=== PATIENT | male | born 1950 | race Hispanic/Latino ===

== ENCOUNTER 2017-10-14 05:57 | Day surgery (SDC) | payer MEDICARE ==
[2017-10-14 06:47] LABS: CALCIUM 9.3 mg/dL (8.4-10.5)
[2017-10-14 07:17] VITALS: BMI 39.9
[2017-10-14] MEDS ORDERED: Bupivacaine 0.5% Inj(30mL) ONE (07:52)
[2017-10-14] MEDS ORDERED: Propofol 10 mg/ml Inj (20 ML) ONE (07:58)
[2017-10-14] MEDS ORDERED: Lidocaine 2% Inj (20ml) ONE (07:59)
[2017-10-14] MEDS ORDERED: Rocuronium 10 mg/ml (5 ml) ONE (08:05)
[2017-10-14] MEDS ORDERED: Succinylcholine 200 mg/10 ml Inj IV ONE (08:05)
[2017-10-14] MEDS ORDERED: ePHEDrine 50 mg/ml Inj ONE (08:27)
[2017-10-14] MEDS ORDERED: Glycopyrrolate 0.2 mg/ml (2ml vial) ONE (09:24)
[2017-10-14] MEDS ORDERED: Neostigmine Methylsulfate 3mg/3ml Syringe IV ONE (09:24)
[2017-10-14] MEDS ORDERED: HYDROmorphone 0.5 mg/0.5 ml ISec IVP PRN (09:46)
--- NOTE | 2017-10-14 09:46 | PCM.SURG1 ---
Surgeon's Initial Post Op Note - Surgeon's Notes Surgeon: Dieudonne Manager Gyn: Sidra PGY3, Orlin PGY2 Type of Anesthesia: General Endo, Local Pre-Operative Diagnosis: ESRD Operative Findings: normal intra-abdominal anatomy Post-Operative Diagnosis: same Operation Performed: laparoscopic peritoneal dialysis catheter placement w. omentopexy Specimen/Specimens Removed: none Estimated Blood Loss: EBL {In ML}: 10 Blood Products Given: N/A Drains Used: No Drains Post-Op Condition: Good Date of Surgery/Procedure: 10/14/17 Time of Surgery/Procedure: 09:46
[2017-10-14] MEDS ORDERED: HYDROmorphone 0.5 mg/0.5 ml ISec ONE (10:30)
--- NOTE | 2017-10-15 04:00 | OP ---
PROCEDURE DATE: 10/14/2017 PREOPERATIVE DIAGNOSIS: End-stage renal disease. POSTOPERATIVE DIAGNOSIS: End-stage renal disease. PROCEDURES PERFORMED: 1. Laparoscopic placement of the peritoneal dialysis catheter. 2. Placement of the peritoneal dialysis catheter extension with subcutaneous tunneling. 3. Laparoscopic omentopexy. SURGEON: Dr. Bro. COPPER PLATER: Dr. Valente. SECOND COPPER PLATER: Dr. Ordaz. ANESTHESIOLOGIST: Dr. Ordaz. TYPE OF ANESTHESIA: General endotracheal anesthesia. ESTIMATED BLOOD LOSS: Minimal. SPECIMEN: None. INDICATIONS: Patient is a 66-year-old male with a history of renal failure, who now requested to have dialysis catheter replaced for use of peritoneal dialysis at home. Patient was scheduled for the placement of the catheter. DESCRIPTION OF PROCEDURE: The patient was brought to the operating room and placed on the operating room table in supine position. The patient was connected to EKG, blood pressure, and pulse oximetry monitors. Patient then underwent general endotracheal anesthesia, was prepped and draped in the usual sterile fashion. First, a standard time-out procedure took place and everybody in the room agreed as to the patient's identity, diagnosis, and procedure to be performed. All the appropriate preop procedures were performed and the operative as well as postoperative plan and course of actions were discussed with the team. First using lidocaine mixed with Marcaine, the left subcostal margin area was infiltrated at the midclavicular line. Next, a small incision made in the skin and a 12-mm trocar was inserted under direct visualization through the camera into the abdominal cavity. Once access to cavity was obtained, a pneumoperitoneum was obtained and that allowed me to explore the entire abdomen. It appeared that there was no adhesions noted. The liver appeared to be within normal limits and the omentum which was quite extensive was pulled up to the upper portion of the abdomen. I then placed a 0 Vicryl stitch and using a closure needle grabbed the right side at the end of the stitch and pulled it through. Once this was secured, I then placed the omentum over the 0 Vicryl and brought out the other end of it through the incision adjacent to the previous incision. Next, the omentum was elevated against the abdominal wall under direct visualization and a 0 Vicryl was closed. Once this was completed, I then proceeded with placing an 8-mm port through the left periumbilical route and brought it into the abdominal cavity by piercing the peritoneum about half way between the umbilicus and symphysis pubis. Once the trocar was in place, the catheter was inserted through the trocar into the abdominal cavity and the pigtail end of the catheter was positioned under the right lower quadrant into the pelvis. Once this was completed, I then proceeding with tunneling of a catheter extension towards the chest and then sideways to the lateral aspect of the abdominal cavity above the umbilicus due to the patient's body habitus. Once the instrument was in place, the intraperitoneal catheter as well as the extension catheter were connected with a metal connector and ligated with 0 silk. Once this was done, I then proceeded with the catheter and carefully watched with a scope the filling of the abdominal cavity. There was excellent flow without any . There was also good drainage back from the abdominal cavity. Once this was done, I left about 400 mL of saline in the abdominal cavity. Now, the wounds were closed using 3-0 Vicryl for the deep dermal layers and 4-0 Monocryl for skin. A sterile Dermabond dressing was applied to all the wounds. The patient tolerated the procedure well and there was no complication. The patient was awakened, extubated and transferred to the recovery room for further observation. Keven Bro MD
[2017-10-15 07:08] LABS: BASO # 0.01 K/mm3 (0.0-2.0); BASO % 0.1 % (0.0-3.0); EOS # 0.1 (0.0-0.7); EOS % 0.7 % (1.5-5.0); GRAN # 10.54 (1.4-6.5); GRAN % 79.2 % (50.0-68.0); HEMOGLOBIN 9.9 g/dL (14.0-18.0); LYMPH # 1.9 (1.2-3.4); LYMPH % 14.4 % (22.0-35.0); MEAN CELL VOLUME 90.1 fl (80.0-105.0); MEAN CORPUSCULAR HEMOGLOBIN 30.7 pg (25.0-35.0); MEAN PLATELET VOLUME 11.3 fl (7.0-11.0); MONO # 0.7 (0.1-0.6); MONO % 5.6 % (1.0-6.0); RBC 3.23 10^6/uL (3.5-6.1); RED CELL DISTRIBUTION WIDTH 13.3 % (11.5-14.5); WHITE BLOOD COUNT 13.3 10^3/ul (4.5-11.0)
[2017-10-15 07:26] LABS: CALCIUM 9.6 mg/dL (8.4-10.5)
--- NOTE | 2017-10-15 08:03 | CP.PCM.PN ---
Subjective - Date & Time of Evaluation Date of Evaluation: 10/15/17 Time of Evaluation: 08:02 - Subjective Subjective: Surgery Objective - Vital Signs/Intake and Output Vital Signs (last 24 hours): Temp Pulse Resp BP Pulse Ox 97.9 F 69 19 167/84 H 95 10/14/17 18:23 10/15/17 00:00 10/14/17 23:27 10/15/17 00:00 10/14/17 18:23 Intake and Output: 10/15/17 10/15/17 06:59 18:59 Intake Total 1080 Output Total 1750 Balance -670 - Medications Medications: Current Medications Allopurinol (Zyloprim) 150 mg PO DAILY [facility] Amlodipine Besylate (Norvasc) 5 mg PO BID [facility] Last Admin: 10/14/17 20:07 Dose: 5 mg Aspirin (Ecotrin) 81 mg PO DAILY [facility] Atorvastatin Calcium (Lipitor) 20 mg PO DAILY [facility] Clonidine HCl (Catapres) 0.3 mg PO TID [facility] Last Admin: 10/14/17 21:07 Dose: 0.3 mg Ergocalciferol (Drisdol 50,000 Intl Units Cap) 1 cap PO TuFr@1000 [facility] Furosemide (Lasix) 40 mg PO DAILY [facility] Hydralazine HCl (Apresoline) 25 mg PO QID [facility] Last Admin: 10/15/17 01:15 Dose: Not Given Metoclopramide HCl (Reglan) 10 mg IV ONCE PRN PRN Reason: Nausea/Vomiting Metoprolol Tartrate (Lopressor) 50 mg PO BID [facility] Last Admin: 10/14/17 20:08 Dose: 50 mg Non-Formulary Medication (Multivit-Minerals/Fa/Lycopene [One Daily For Men Tablet]) 1 tab PO DAILY [facility] Pantoprazole Sodium (Protonix Ec Tab) 40 mg PO DAILY [facility] Sennosides (Senokot Tab) 17.2 mg PO HS [facility] Last Admin: 10/14/17 21:08 Dose: 17.2 mg Tamsulosin HCl (Flomax) 0.4 mg PO DAILY [facility] Last Admin: 10/15/17 01:16 Dose: Not Given Tamsulosin HCl (Flomax) 0.4 mg PO DAILY [facility] Tramadol HCl (Ultram) 50 mg PO TID [facility] Last Admin: 10/14/17 20:07 Dose: 50 mg Tramadol HCl (Ultram) 50 mg PO PRN PRN PRN Reason: Pain, moderate (4-7) - Labs Labs: 10/15/17 06:30 10/15/17 06:30
[2017-10-15] MEDS ORDERED: LYCOPENE PO SCH ×3 (10:00)
[2017-10-15] MEDS ORDERED: [UNRECOGNIZED DRUG - OTHER] PO SCH ×3 (10:00)
[2017-10-15] MEDS ORDERED: Ergocalciferol 50,000 Intl Units Cap PO SCH ×2 (10:00)
[2017-10-15] MEDS ORDERED: Pantoprazole 40 mg EC Tab PO SCH ×2 (10:00)
[2017-10-15] MEDS ORDERED: MULTIVIT MINERALS PO SCH ×3 (10:00)
[2017-10-15 11:33] VITALS: PULSE 73; RESP 20; TEMP 98; O2SAT 98
--- NOTE | 2017-10-15 12:10 | CP.PCM.DIS ---
Provider - Provider Attending physician: Keven Villeda MD Primary care physician: Raz Le MD Consults: Urology: Dr. Chen Time Spent in preparation of Discharge (in minutes): 45 Hospital Course - Lab Results Lab Results: Most Recent Lab Values WBC 13.3 10^3/ul (4.5-11.0) H D 10/15/17 06:30 RBC 3.23 10^6/uL (3.5-6.1) L 10/15/17 06:30 Hgb 9.9 g/dL (14.0-18.0) L 10/15/17 06:30 Hct 29.1 % (42.0-52.0) L 10/15/17 06:30 MCV 90.1 fl (80.0-105.0) 10/15/17 06:30 MCH 30.7 pg (25.0-35.0) 10/15/17 06:30 MCHC 34.0 g/dl (31.0-37.0) 10/15/17 06:30 RDW 13.3 % (11.5-14.5) 10/15/17 06:30 Plt Count 233 10^3/uL (120.0-450.0) 10/15/17 06:30 MPV 11.3 fl (7.0-11.0) H 10/15/17 06:30 Gran % 79.2 % (50.0-68.0) H 10/15/17 06:30 Lymph % (Auto) 14.4 % (22.0-35.0) L 10/15/17 06:30 [place] % (Auto) 5.6 % (1.0-6.0) 10/15/17 06:30 Eos % (Auto) 0.7 % (1.5-5.0) L 10/15/17 06:30 Baso % (Auto) 0.1 % (0.0-3.0) 10/15/17 06:30 Gran # 10.54 (1.4-6.5) H 10/15/17 06:30 Lymph # (Auto) 1.9 (1.2-3.4) 10/15/17 06:30 [place] # (Auto) 0.7 (0.1-0.6) H 10/15/17 06:30 Eos # (Auto) 0.1 (0.0-0.7) 10/15/17 06:30 Baso # (Auto) 0.01 K/mm3 (0.0-2.0) 10/15/17 06:30 Sodium 143 mmol/L (132-148) 10/15/17 06:30 Potassium 3.3 mmol/L (3.6-5.0) L 10/15/17 06:30 Chloride 104 mmol/L (98-107) 10/15/17 06:30 Carbon Dioxide 21 mmol/L (21-33) 10/15/17 06:30 Anion Gap 22 (10-20) H 10/15/17 06:30 BUN 97 mg/dL (7-21) H 10/15/17 06:30 Creatinine 9.8 mg/dl (0.8-1.5) H* 10/15/17 06:30 Est GFR ( Amer) 6 10/15/17 06:30 Est GFR (Non-Af Amer) 5 10/15/17 06:30 Random Glucose 140 mg/dL (70-110) H 10/15/17 06:30 Calcium 9.6 mg/dL (8.4-10.5) 10/15/17 06:30 - Hospital Course Hospital Course: 66 M w h/o ESRD came to [facility] for peritoneal dialysis catheter insertion. Pt tolerated the surgery well but had urinary retention. Pt was admitted for extended SDS. Overnight coffman catheter was placed and FLomax was given. Pt had 1750 urine output overnight. Urology was consulted. Recommended sending home with the coffman and flomax. Instructed to f/u with Dr. villeda and Dr. Chen at the office in 1 week. Discharge Plan - Follow Up Plan Condition: GOOD Disposition: HOME/ ROUTINE Additional Instructions: f/u with Dr. Chen to get Coffman urinary catheter removed in 3 days follow up with Dr. Villeda in 1 week no heavy lifting for 1 month ok to use peritoneal dialysis catheter. Follow up with waterproofing machine operator for instruction Referrals: Raz Le MD [Primary Care Provider] - Augustus Chen MD [Staff Provider] - Keven Villeda MD [Staff Provider] -
[2017-10-15] MEDS ORDERED: Potassium Chloride 20 mEq ER Tab PO ONE (14:23)
[2017-10-15 15:29] VITALS: BP 176/86
== END 2017-10-15 15:47 | disposition home or self-care (01) ==
LOC: SDS 05:57 → 5RNO 18:58 → SDS 18:59
PROVIDERS: ATTEND General Practice
DX: I12.0 Hypertensive chronic kidney disease with stage 5 chronic kidney disease or end stage renal disease (principal); N18.6 End stage renal disease; R33.9 Retention of urine, unspecified; I25.10 Atherosclerotic heart disease of native coronary artery without angina pectoris; Z95.1 Presence of aortocoronary bypass graft
CPT/HCPCS: 36415 ×2; 49324; 49326; 49435; 80048 ×2; 85025; J0330; J0690; J1170; J1644; J2405; J2704; J2710; J2765; J3010; J7030

== ENCOUNTER 2018-07-24 09:06 | Outpatient (CLI) | payer MEDICARE | END 2018-07-24 09:07 | disposition home or self-care (01) | LOC: LAB 09:06 ==

== ENCOUNTER 2018-08-11 15:35 | Inpatient (IN) | payer MEDICARE ==
--- NOTE | 2018-08-11 15:43 | EDPD ---
HPI Stroke - General Time Seen by Provider: 08/11/18 15:38 Chief Complaint: Altered Mental Status Historian: EMS - History of Present Illness Narrative History of Present Illness (Free Text): 08/11/18 15:43 67 year old male, with past medical history of anemia, hypertension, CABG, and ESRD on hemodialysis, presents to the ED via EMS for evaluation of AMS since prior to arrival. As per EMS, patient became altered with poor response following dialysis when dialysis center called EMS. Upon arrival to the ED, patient responds to painful stimuli but does not verbalize any history or complaints. HPI and ROS limited secondary to patient's clinical presentation. Onset:: Just prior to presenting Timing: Currently Symptomatic Context: Other (Dialysis center) Exacerbated by: Nothing Relieved by: Nothing - Location Location: Mental Status - Pain Assessment/Levels Maximum Severity: None Severity Current: None rTPA Inclusion/Exclusion - Refusal of Treatment Patient Refused Treatment: No - Inclusion Criteria for Altepase Patient is 18 years or Older: Yes The Clinical Diagnosis of Ischemic Stroke That is Causing a Potentially Disabling Neurological Deficit: No Time of Onset is Well Established to be Less Than 270 Minute Before Treatment Would Begin: No Risk/Benefit Discussed With Patient/Family Member Present: No Past Medical History - Provider Review Nursing Documentation Reviewed: Yes - Tetanus Immunization Tetanus Immunization: Unknown - Cardiac Hx Hypertension: Yes Other/Comment: Quad Bypass - Pulmonary Hx Respiratory Disorders: Yes Hx Sleep Apnea: Yes - Neurological Hx Neurological Disorder: Yes Hx Transient Ischemic Attacks (TIA): Yes (1985) - HEENT Hx HEENT Disorder: No - Renal Hx Renal Disorder: Yes Other/Comment: patient is born with only 1 kidney- right - Endocrine/Metabolic Hx Endocrine Disorders: No - Hematological/Oncological Hx Blood Disorders: No - Integumentary Hx Dermatological Disorder: No - Musculoskeletal/Rheumatological Hx Musculoskeletal Disorders: Yes Hx Arthritis: Yes Hx Falls: No - Gastrointestinal Hx Gastrointestinal Disorders: No - Genitourinary/Gynecological Hx Genitourinary Disorders: No - Psychiatric Hx Emotional Abuse: No Hx Physical Abuse: No Hx Substance Use: No - Surgical History Hx Coronary Stent: Yes Other/Comment: Cystoscopy, TURP - Anesthesia Hx Anesthesia Reactions: No Hx Malignant Hyperthermia: No - Suicidal Assessment Feels Threatened In Home Enviroment: No Family/Social History - Family/Social History Family History: Non-Contributory Allergies/Home Meds Allergies/Adverse Reactions: Allergies Iodinated Contrast- Oral and IV Dye [Iodinated Contrast Media - IV Dye] Allergy (Severe, Verified 10/04/17 10:48) SHORTNESS OF BREATH seafood Allergy (Severe, Uncoded 10/04/17 10:48) ANAPHYLAXIS Home Medications: Home Meds Medication Instructions Recorded Confirmed RX: Atorvastatin [Lipitor] 20 mg PO DAILY 11/26/14 08/11/18 RX: Tamsulosin [Flomax] 0.4 mg PO DAILY 11/26/14 08/11/18 RX: Cholecalciferol (Vitamin D3) 50,000 unit PO Q2XW 06/07/17 08/11/18 [Vitamin D3] RX: Calcium Acetate [Phoslo] 2 tab PO TID 08/11/18 08/11/18 RX: Cinacalcet [Sensipar] 30 mg PO DAILY 08/11/18 08/11/18 RX: Gabapentin [Neurontin] 300 mg PO HS 08/11/18 08/11/18 RX: SITagliptin [Januvia] 25 mg PO PRN 08/11/18 08/11/18 RX: Allopurinol [Zyloprim] 100 mg PO DAILY 08/14/18 08/14/18 Review of Systems - Review of Systems Systems not reviewed;Unavailable: Altered Mental Status ED Stroke Physical Exam Temperature: Febrile Blood Pressure: Normal Pulse: Tachycardic Respiratory Rate: Normal Appearance: Positive for: Ill-Appearing Pain Distress: None Mental Status: Positive for: other (delirious) Finger Stick Blood Glucose: 85 - Systems Exam Head: Present: Atraumatic, Normocephalic Pupils: Present: PERRL Extroacular Muscles: Present: EOMI Conjunctiva: Present: Normal Ears: Present: Normal, NORMAL TM Mouth: Present: Dry Pharnyx: Present: Normal. No: ERYTHEMA, EXUDATE Nose (External): Present: Atraumatic Neck: Present: Normal Range of Motion. No: Meningeal Signs, MIDLINE TENDERNESS Respiratory/Chest: Present: Clear to Auscultation Cardiovascular: Present: Tachycardic. No: Murmurs Abdomen: Present: Normal Bowel Sounds. No: Tenderness, Distention, Peritoneal Signs Back: Present: Normal Inspection. No: CVA Tenderness, Midline Tenderness Upper Extremity: Present: Normal Inspection, Normal ROM, NORMAL PULSES Lower Extremity: Present: Edema (1+ pitting), NORMAL PULSES, Erythema, Neurov ascularly Intact, Other (b/l LE erythema ) Neurologic: Present: Other (Gcs 12, RUE, LUE 2/5 strength. RLE, LLE 1/5 strength. Withdraws to pain stimule in all extremities. intermittent chills / shakes noted. Pt tracks objects across room and is responsive when asked. Is AOx1. ). No: Facial Droop Skin: Present: Rashes (b/l le erythema) Psychiatric: Present: Alert. No: Oriented x 3 (AOx1) Medical Decision Making ED Course and Treatment: 08/11/18 15:49 Impression: 67 year old male presents to the ED for evaluation of AMS since prior to arrival. Appreciate family story at bedside: pt was last seen normally 24+ hours prior, and this morning started having weakness as well as difficultly walking. No enuresis or encoparesis or loss of sensation to the legs at any time. No fall or trauma. Pt then had HD and was noted to have chills as well as AMS. No unilateral weakness or slurred speech was noted, but patient was less responsive and noted to be AOx1. Given change in mentation, code stroke activated. (it was unknown at the time that patient was last seen normal at 100% prior to 24+ hours prior.) Plan: -- Labs -- Chest X-ray -- EKG -- ABG -- VBG -- CT of Head -- Reassess and disposition Prior Visits: Notes and results from previous visits were reviewed. Progress Notes: 08/11/18 15:43 glucose unremarkable pupils non-pin point CODE STROKE ACTIVATED. 08/11/18 15:49 Family at bedside, who states patient was at baseline prior to dialysis. Patient is usually able to ambulate on his own without any difficulty as per family. 08/11/18 1700 CTH unremarkable elevated temp, mildly elevated lactic and tachy, code sepsis called. ABx started. No signs of septic shock. Gentle hydration ordered given stable pressure as well as hx of recent HD. 08/11/18 1730 Appreciate consult w/ Dr. [place]: Likely metabolic encephalopathy, no tpa at this time. 08/11/18 17:41 appreciate consult w/ Dr. Clark: No ICU at this time, to tele. appreciate consult w/ Dr. Felicity Reyes: to admit to her service. - Scribe Statement The provider has reviewed the documentation as recorded by the Scribe Shahab Dia. All medical record entries made by the Scribe were at my direction and personally dictated by me. I have reviewed the chart and agree that the record accurately reflects my personal performance of the history, physical exam, medical decision making, and the department course for this patient. I have also personally directed, reviewed, and agree with the discharge instructions and disposition. NIHSS Scale ([place]) Time Performed: 15:40 - How Severe is the Stoke Baseline Level of Consciousness: 1=Drowsy LOC to Questions: 1=One correct LOC to commands: 0=Obeys both correctly Best Gaze: 1=Partial gaze palsy Visual: 0=No visual loss Facial: 0=Normal Motor Arm - Left: 2=Falls before 10 sec Motor Arm - Right: 2=Falls before 10 sec Motor Leg - Left: 3=No effort against gravity (falls immediately) Motor Leg - Right: 3=No effort against gravity (falls immediately) Limb Ataxia: 1=Present Upper or Lower Sensory: 0=Normal Best Language: 1=Mild to moderate aphasia Dysarthia: 1=Mild to moderate slurring Extinction & Inattention (Neglect): 0=Normal, no object Score: 16 Risk Level: Mod/Sev Stroke Risk Disposition/Present on Arrival - Present on Arrival Any Indicators Present on Arrival: No History of DVT/PE: No History of Uncontrolled Diabetes: No Urinary Catheter: No History Surgical Site Infection Following: None - Disposition Have Diagnosis and Disposition been Completed?: Yes Diagnosis: Sepsis, Altered mental status Disposition: HOSPITALIZED Disposition Time: 17:42 Condition: GOOD
[2018-08-11 15:44] VITALS: BMI 33.8
[2018-08-11] MEDS ORDERED: Sodium Chloride 0.9% 1,000 ML IV SCH ×2 (15:45→16:35)
[2018-08-11] MEDS ORDERED: Piperacillin/Tazobact 3.375 gm 100 ML IVPB STA (16:01)
[2018-08-11] MEDS ORDERED: Vancomycin 1gm in NS 250ml 1 GM/250 ML BAG IVPB STA (16:01)
[2018-08-11 16:16] LABS: BASO # 0.03 K/mm3 (0.0-2.0); BASO % 0.1 % (0.0-3.0); EOS # 0.2 (0.0-0.7); EOS % 0.8 % (1.5-5.0); HEMOGLOBIN 13.2 g/dL (14.0-18.0); LYMPH # 1.4 (1.2-3.4); LYMPH % 6.5 % (22.0-35.0); MEAN CELL VOLUME 101.8 fl (80.0-105.0); MEAN CORPUSCULAR HGB CONC 33.4 g/dl (31.0-37.0); MEAN PLATELET VOLUME 10.8 fl (7.0-11.0); MONO # 1.3 (0.1-0.6); RBC 3.88 10^6/uL (3.5-6.1); WHITE BLOOD COUNT 21.4 10^3/uL (4.5-11.0)
[2018-08-11 16:20] LABS: VENOUS BLOOD GAS BASE EXCESS 4.5 mmol/L (0.0-2.0); VENOUS BLOOD GAS PO2 28 mm/Hg (30-55); VENOUS BLOOD PH 7.42 (7.32-7.43)
--- NOTE | 2018-08-11 16:22 | RAD ---
Date of service: 08/11/2018 HISTORY: Code Stroke COMPARISON: 10/04/2017 FINDINGS: LUNGS: No active pulmonary disease. PLEURA: No significant pleural effusion identified, no pneumothorax apparent. CARDIOVASCULAR: Atherosclerotic calcifications identified primarily aortic arch. No radiographic findings to suggest acute or significant cardiovascular disease. Incidental Finding(s): Postoperative changes related to sternotomy. Venous access catheter in satisfactory position. OSSEOUS STRUCTURES: No significant abnormalities. VISUALIZED UPPER ABDOMEN: Normal. OTHER FINDINGS: None. IMPRESSION: No active disease. No significant interval change compared to the prior examination(s).
--- NOTE | 2018-08-11 16:22 | CT ---
Date of service: 08/11/2018 PROCEDURE: CT HEAD WITHOUT CONTRAST. HISTORY: Altered mental status. COMPARISON: 07/27/2016 TECHNIQUE: Axial computed tomography images were obtained through the head/brain without intravenous contrast. Supplemental Coronal and Sagittal projections created and reviewed. Radiation dose: Total exam DLP = 1097.12 mGy-cm. This CT exam was performed using one or more of the following dose reduction techniques: Automated exposure control, adjustment of the mA and/or kV according to patient size, and/or use of iterative reconstruction technique. FINDINGS: HEMORRHAGE: No intracranial hemorrhage. BRAIN: No mass effect or edema. Cortical and cerebellar atrophy, periventricular small vessel disease. VENTRICLES: Unremarkable. No hydrocephalus. CALVARIUM: Stable sclerotic, likely benign calvarial findings PARANASAL SINUSES: Unremarkable as visualized. No significant inflammatory changes. MASTOID AIR CELLS: Unremarkable as visualized. No inflammatory changes. OTHER FINDINGS: None. IMPRESSION: No acute intracranial abnormalities. No significant findings to account for the clinical presentation. No significant interval change compared to the prior examination(s). Code stroke protocol: Study completed 15:51. Radiologist notified 16:01. Results conveyed verbally at 16:16. Interpretation finalized and available for review 16:18.
[2018-08-11 16:24] LABS: ARTERIAL BLOOD GAS O2 SAT 94.5 % (95-98); ARTERIAL BLOOD GAS PCO2 38 mm/Hg (35-45); ARTERIAL BLOOD GAS PH 7.46 (7.35-7.45); ARTERIAL BLOOD GAS TCO2 28.2 mmol.L (22-28)
[2018-08-11 16:24] LABS: INR 1.11; PARTIAL THROMBOPLASTIN TIME 34.8 Seconds (26.9-38.3); PROTHROMBIN TIME 12.3 SECONDS (9.4-12.5)
[2018-08-11 16:34] LABS: PH,URINE 7.5 (4.7-8.0); URINE BILIRUBIN NEGATIVE (NEGATIVE); URINE BLOOD MODERATE (NEGATIVE); URINE GLUCOSE (UA) 100 mg/dL (NEGATIVE); URINE LEUKOCYTE ESTERASE MODERATE Leu/uL (NEGATIVE); URINE PROTEIN 100 mg/dL (<30 mg/dL); URINE UROBILINOGEN 0.2 E.U./dL (<1 E.U./dL)
[2018-08-11 16:35] LABS: URINE APPEARANCE SLIGHT-CLOUDY (CLEAR); URINE COLOR YELLOW (YELLOW)
[2018-08-11 16:39] LABS: ALB/GLOB RATIO 1.5 (1.1-1.8); ALBUMIN 5.2 g/dL (3.0-4.8); CALCIUM 10.3 mg/dL (8.4-10.5)
[2018-08-11 16:42] LABS: TROPONIN I 0.03 ng/mL
[2018-08-11 16:50] LABS: URINE AMORPHOUS SEDIMENT SMALL /hpf; URINE EPITHELIAL CELLS MANY /hpf (0-5); URINE RBC 20 - 25 /hpf (0-2)
--- NOTE | 2018-08-11 17:01 | CP.PCM.HP ---
<AlexKvng - Last Filed: 08/11/18 18:53> History of Present Illness - History of Present Illness History of Present Illness: Kvng Johnson, PGY1 Medicine H&P for Dr. Reyes cc: "weakness/wobbling and AMS after HD" Patient is a 67 y/o M with PMHx Anemia, HTN, ESRD on HD (MW), CAD (s/p stent placement 2007), TIA (1985), DM who presented to the ED for weakness and AMS after HD treatment. Dialysis center called EMS. In the ED, Vitals: Temp 103.5, HR 114, BP 114/77, RR 18, SaO2 98% (room air). Medical team evaluated patient. He is AAOx1 (person only). His baseline is normal mental status, AAOx3. Most of the history was obtained from family member at bedside. Since this morning, patient has had increased weakness and wobbling. He is a HD patient who has a dialysis catheter in place but recently had a fistula placed about a week ago. Patient has had a prior episode like this once in the past but it resolved. His baseline mental status is normal; he can function and go about his activities of daily living. Denies fever, chills, cough, headache, nausea, vomiting, diarrhea, numbness/tingling. No sick contacts or recent travel hx. A full 12 point ROS was limited given patient's poor mental status. PMD: Dr. Jaramillo Clinical [facility]etics Laboratory Chief: Dr. Garcia Railroad Inspector: Dr. Galeas Pharmacy: [facility] () PMHx: Anemia, HTN, ESRD on HD (MW), CAD (s/p stent placement 2007), TIA (1985), DM PSHx: CABG (2013), Bone spur surgery Meds: see MAR Allergies: contrast oral and IV dye SocialHx: social drinker. Denies smoking. Smoked cigars with recreational drugs in the 1980s but quit. Lives at home. FamHx: father has some type of GI cancer (unspecified). Mother has DM. Present on Admission - Present on Admission Any Indicators Present on Admission: No Review of Systems - Review of Systems All systems: reviewed and no additional remarkable complaints except (as per HPI) Past Patient History - Infectious Disease Hx of Infectious Diseases: None - Tetanus Immunizations Tetanus Immunization: Unknown - Past Medical History & Family History Past Medical History?: Yes - Past Social History Smoking Status: Former Smoker - CARDIAC Hx Hypertension: Yes Other/Comment: Quad Bypass - PULMONARY Hx Respiratory Disorders: Yes Hx Sleep Apnea: Yes - NEUROLOGICAL Hx Neurological Disorder: Yes Hx Transient Ischemic Attacks (TIA): Yes (1985) - HEENT Hx HEENT Problems: No - RENAL Hx Chronic Kidney Disease: Yes Other/Comment: patient is born with only 1 kidney- right - ENDOCRINE/METABOLIC Hx Endocrine Disorders: No - HEMATOLOGICAL/ONCOLOGICAL Hx Blood Disorders: No - INTEGUMENTARY Hx Dermatological Problems: No - MUSCULOSKELETAL/RHEUMATOLOGICAL Hx Musculoskeletal Disorders: Yes Hx Arthritis: Yes Hx Falls: No - GASTROINTESTINAL Hx Gastrointestinal Disorders: No - GENITOURINARY/GYNECOLOGICAL Hx Genitourinary Disorders: No - PSYCHIATRIC Hx Emotional Abuse: No Hx Physical Abuse: No Hx Substance Use: No - SURGICAL HISTORY Hx Coronary Stent: Yes Other/Comment: Cystoscopy, TURP - ANESTHESIA Hx Anesthesia Reactions: No Hx Malignant Hyperthermia: No Meds Allergies/Adverse Reactions: Allergies Allergy/AdvReac Type Severity Reaction Status Date / Time Iodinated Contrast- Oral and Allergy Severe SHORTNESS Verified 10/04/17 10:48 IV Dye OF BREATH [Iodinated Contrast Media - IV Dye] seafood Allergy Severe ANAPHYLAXIS Uncoded 10/04/17 10:48 Physical Exam - Constitutional Appears: Confused - Head Exam Head Exam: ATRAUMATIC, NORMAL INSPECTION, NORMOCEPHALIC - Eye Exam Eye Exam: EOMI, Normal appearance Pupil Exam: NORMAL ACCOMODATION - ENT Exam ENT Exam: Mucous Membranes Moist - Respiratory Exam Respiratory Exam: Clear to Auscultation Bilateral, NORMAL BREATHING PATTERN. absent: Chest Wall Tenderness, Decreased Breath Sounds, Rales, Rhonchi, Wheezes - Cardiovascular Exam Cardiovascular Exam: Tachycardia, +S1, +S2 Additional comments: CABG scar on chest wall. Dialysis catheter is in place on right chest wall. - GI/Abdominal Exam GI & Abdominal Exam: Normal Bowel Sounds, Soft. absent: Firm, Guarding, Rebound, Rigid, Tenderness - Extremities Exam Extremities exam: Positive for: pedal pulses present. Negative for: calf tenderness, joint swelling, tenderness Additional comments: Bilateral chronic venous stasis skin changes. Warm to touch. Right leg is wrapped in bandage. - Neurological Exam Neurological exam: Altered Additional comments: Awake. AAOx1 (person only). No facial drooping. Generalized weakness in the ex tremities, however, one side is not weaker than the other. - Skin Skin Exam: Dry, Intact, Warm Results - Vital Signs Recent Vital Signs: Last Vital Signs Temp 103.5 F H 08/11/18 16:19 Pulse 114 H 08/11/18 16:02 Resp 18 08/11/18 16:02 BP 114/77 08/11/18 16:02 Pulse Ox 98 08/11/18 16:02 - Labs Result Diagrams: 08/11/18 16:10 08/11/18 16:10 Labs: Laboratory Results - last 24 hr 08/11/18 08/11/18 08/11/18 16:08 16:10 16:10 WBC 21.4 H D RBC 3.88 Hgb 13.2 L Hct 39.5 L MCV 101.8 MCH 34.0 MCHC 33.4 RDW 15.0 H Plt Count 188 MPV 10.8 Neut % (Auto) 86.6 H Lymph % (Auto) 6.5 L Moody % (Auto) 6.0 Eos % (Auto) 0.8 L Baso % (Auto) 0.1 Lymph # (Auto) 1.4 Moody # (Auto) 1.3 H Eos # (Auto) 0.2 Baso # (Auto) 0.03 Absolute Neuts (auto) 18.56 H PT 12.3 INR 1.11 APTT 34.8 pCO2 pO2 28 L HCO3 ABG pH ABG Total CO2 ABG O2 Saturation ABG Base Excess ABG Potassium VBG pH 7.42 VBG pCO2 46.0 VBG HCO3 29.8 H VBG Total CO2 31.2 H VBG O2 Sat (Calc) 62.9 VBG Base Excess 4.5 H VBG Potassium 5.3 H Sodium 133.0 Chloride 92.0 L Glucose 155 H Lactate 2.8 H FiO2 21.0 Crit Value Called To Dr lili alfaro Crit Value Called By Blood Gas Notified Time 1619 Potassium Carbon Dioxide Anion Gap BUN Creatinine Est GFR ( Amer) Est GFR (Non-Af Amer) Random Glucose Calcium Total Bilirubin AST ALT Alkaline Phosphatase Total Creatine Kinase Troponin I Total Protein Albumin Globulin Albumin/Globulin Ratio Triglycerides Cholesterol LDL Cholesterol Direct HDL Cholesterol Arterial Blood Potassium Venous Blood Potassium 5.3 H Urine Color Urine Appearance Urine pH Ur Specific Clayton Urine Protein Urine Glucose (UA) Urine Ketones Urine Blood Urine Nitrate Urine Bilirubin Urine Urobilinogen Ur Leukocyte Esterase Urine RBC Urine WBC Ur Epithelial Cells Amorphous Sediment BBK History Checked 08/11/18 08/11/18 08/11/18 16:10 16:15 16:15 WBC RBC Hgb Hct MCV MCH MCHC RDW Plt Count MPV Neut % (Auto) Lymph % (Auto) Moody % (Auto) Eos % (Auto) Baso % (Auto) Lymph # (Auto) Moody # (Auto) Eos # (Auto) Baso # (Auto) Absolute Neuts (auto) PT INR APTT pCO2 38 pO2 57.0 L HCO3 27.0 ABG pH 7.46 H ABG Total CO2 28.2 H ABG O2 Saturation 94.5 L ABG Base Excess 3.1 H ABG Potassium 4.9 VBG pH VBG pCO2 VBG HCO3 VBG Total CO2 VBG O2 Sat (Calc) VBG Base Excess VBG Potassium Sodium 134 132.0 Chloride 90 L 94.0 L Glucose 158 H Lactate 2.3 H FiO2 32.0 Crit Value Called To Dr gala alfaro Crit Value Called By Blood Gas Notified Time 1624 Potassium 5.4 H Carbon Dioxide 28 Anion Gap 21 H BUN 42 H Creatinine 8.0 H* Est GFR ( Amer) 8 Est GFR (Non-Af Amer) 7 Random Glucose 157 H Calcium 10.3 Total Bilirubin 0.5 AST 24 ALT 21 Alkaline Phosphatase 78 Total Creatine Kinase 48 Troponin I 0.03 D Total Protein 8.7 H Albumin 5.2 H Globulin 3.5 Albumin/Globulin Ratio 1.5 Triglycerides 285 H Cholesterol 183 LDL Cholesterol Direct 80 HDL Cholesterol 37 Arterial Blood Potassium 4.9 Venous Blood Potassium Urine Color Yellow Urine Appearance Slight-cloudy Urine pH 7.5 Ur Specific Clayton 1.020 Urine Protein 100 H Urine Glucose (UA) 100 H Urine Ketones Negative Urine Blood Moderate H Urine Nitrate Negative Urine Bilirubin Negative Urine Urobilinogen 0.2 Ur Leukocyte Esterase Moderate H Urine RBC 20 - 25 H Urine WBC 10 - 15 H Ur Epithelial Cells Many H Amorphous Sediment Small BBK History Checked 08/11/18 16:35 WBC RBC Hgb Hct MCV MCH MCHC RDW Plt Count MPV Neut % (Auto) Lymph % (Auto) Moody % (Auto) Eos % (Auto) Baso % (Auto) Lymph # (Auto) Moody # (Auto) Eos # (Auto) Baso # (Auto) Absolute Neuts (auto) PT INR APTT pCO2 pO2 HCO3 ABG pH ABG Total CO2 ABG O2 Saturation ABG Base Excess ABG Potassium VBG pH VBG pCO2 VBG HCO3 VBG Total CO2 VBG O2 Sat (Calc) VBG Base Excess VBG Potassium Sodium Chloride Glucose Lactate FiO2 Crit Value Called To Crit Value Called By Blood Gas Notified Time Potassium Carbon Dioxide Anion Gap BUN Creatinine Est GFR ( Amer) Est GFR (Non-Af Amer) Random Glucose Calcium Total Bilirubin AST ALT Alkaline Phosphatase Total Creatine Kinase Troponin I Total Protein Albumin Globulin Albumin/Globulin Ratio Triglycerides Cholesterol LDL Cholesterol Direct HDL Cholesterol Arterial Blood Potassium Venous Blood Potassium Urine Color Urine Appearance Urine pH Ur Specific Clayton Urine Protein Urine Glucose (UA) Urine Ketones Urine Blood Urine Nitrate Urine Bilirubin Urine Urobilinogen Ur Leukocyte Esterase Urine RBC Urine WBC Ur Epithelial Cells Amorphous Sediment BBK History Checked No verified bt Assessment & Plan - Assessment and Plan (Free Text) Assessment: Patient is a 67 y/o M with PMHx Anemia, HTN, ESRD on HD (), CAD (s/p stent placement 2007), TIA (1985), DM who presented to the ED for weakness and AMS after HD treatment. Patient will be admitted for AMS due to Stroke or Sepsis 2/2 UTI vs PNA vs Cellulitis. Plan: AMS due to Stroke or Sepsis 2/2 UTI vs PNA vs Cellulitis - Although patient is septic, will not administer full 30 cc/kg as per septic protocol given that patient is on HD - IVF NS @ 50 cc/hr for total of 250cc - BP is 127/73 during interview. Patient is not in shock as BP is well controlled. - Zosyn 2.25g IVPB q8 (renal dosed) for antibx coverage - ID is on consult (Dr. Fitzpatrick) - febrile (Temp 103.5) with leukocytosis (wbc 21.4) - Tylenol 650mg per rectum q6 prn for fever control - f/u repeat lactate; lactate was 2.8 on admission - procal - legionella - f/u blood cx and urine cx - UA showed mod LE, 10-15 wbc but contaminated sample - many epithelial cells - CXR: consider infiltrate at the left lower lobe. - ICU on consult (Dr. Marybeth Clark) - Given lower extremity skin changes/cellulitis as possible source of infection, Podiatry consulted (Dr. Vu) - Neurology is on board for code stroke; echo, neurochecks, vital signs q8, nursing speech and swallow eval - CT Head negative for ICH - obtain lower extremity venous doppler to r/o DVT - CT Abdomen w/o contrast to r/o other sources of infection - trend trops q8 Hx ESRD (MWF) - Nephro consulted (Dr. Garcia) - ammonia level to r/o encephalopathy given elevated BUN - Cr was 8.0 (8.8 on prior admission) - c/w dialysis during inpatient admission - access via dialysis catheter Hx DM - ISS (med) - Accuchecks Hx HTN - hold HTN meds for now due to sepsis Diet: NPO DVT ppx: Hep sc Dispo: Monitor patient on telemetry. Pending ICU evaluation. Case was discussed and reviewed with Attending Physician, Dr. Reyes. <Kassie Reyes - Last Filed: 08/12/18 07:12> Results - Vital Signs Recent Vital Signs: Last Vital Signs Temp 98 F 08/12/18 05:47 Pulse 85 08/12/18 05:47 Resp 20 08/12/18 05:47 BP 145/79 08/12/18 05:47 Pulse Ox 100 08/12/18 05:47 - Labs Result Diagrams: 08/12/18 05:45 08/12/18 05:45 Labs: Laboratory Results - last 24 hr 08/11/18 08/11/18 08/11/18 16:08 16:10 16:10 WBC 21.4 H D RBC 3.88 Hgb 13.2 L Hct 39.5 L MCV 101.8 MCH 34.0 MCHC 33.4 RDW 15.0 H Plt Count 188 MPV 10.8 Neut % (Auto) 86.6 H Lymph % (Auto) 6.5 L Moody % (Auto) 6.0 Eos % (Auto) 0.8 L Baso % (Auto) 0.1 Lymph # (Auto) 1.4 Moody # (Auto) 1.3 H Eos # (Auto) 0.2 Baso # (Auto) 0.03 Absolute Neuts (auto) 18.56 H PT 12.3 INR 1.11 APTT 34.8 pCO2 pO2 28 L HCO3 ABG pH ABG Total CO2 ABG O2 Saturation ABG Base Excess ABG Potassium VBG pH 7.42 VBG pCO2 46.0 VBG HCO3 29.8 H VBG Total CO2 31.2 H VBG O2 Sat (Calc) 62.9 VBG Base Excess 4.5 H VBG Potassium 5.3 H Sodium 133.0 Chloride 92.0 L Glucose 155 H Lactate 2.8 H FiO2 21.0 Crit Value Called To Dr lili alfaro Crit Value Called By Blood Gas Notified Time 1619 Potassium Carbon Dioxide Anion Gap BUN Creatinine Est GFR ( Amer) Est GFR (Non-Af Amer) Random Glucose Calcium Phosphorus Magnesium Total Bilirubin AST ALT Alkaline Phosphatase Ammonia Total Creatine Kinase Troponin I Total Protein Albumin Globulin Albumin/Globulin Ratio Triglycerides Cholesterol LDL Cholesterol Direct HDL Cholesterol Arterial Blood Potassium Venous Blood Potassium 5.3 H Urine Color Urine Appearance Urine pH Ur Specific Clayton Urine Protein Urine Glucose (UA) Urine Ketones Urine Blood Urine Nitrate Urine Bilirubin Urine Urobilinogen Ur Leukocyte Esterase Urine RBC Urine WBC Ur Epithelial Cells Amorphous Sediment Influenza Typ A,B (EIA) Blood Type Blood Type Confirm Antibody Screen BBK History Checked 08/11/18 08/11/18 08/11/18 16:10 16:15 16:15 WBC RBC Hgb Hct MCV MCH MCHC RDW Plt Count MPV Neut % (Auto) Lymph % (Auto) Moody % (Auto) Eos % (Auto) Baso % (Auto) Lymph # (Auto) Moody # (Auto) Eos # (Auto) Baso # (Auto) Absolute Neuts (auto) PT INR APTT pCO2 38 pO2 57.0 L HCO3 27.0 ABG pH 7.46 H ABG Total CO2 28.2 H ABG O2 Saturation 94.5 L ABG Base Excess 3.1 H ABG Potassium 4.9 VBG pH VBG pCO2 VBG HCO3 VBG Total CO2 VBG O2 Sat (Calc) VBG Base Excess VBG Potassium Sodium 134 132.0 Chloride 90 L 94.0 L Glucose 158 H Lactate 2.3 H FiO2 32.0 Crit Value Called To Dr gala alfaro Crit Value Called By Blood Gas Notified Time 1624 Potassium 5.4 H Carbon Dioxide 28 Anion Gap 21 H BUN 42 H Creatinine 8.0 H* Est GFR ( Amer) 8 Est GFR (Non-Af Amer) 7 Random Glucose 157 H Calcium 10.3 Phosphorus Magnesium Total Bilirubin 0.5 AST 24 ALT 21 Alkaline Phosphatase 78 Ammonia Total Creatine Kinase 48 Troponin I 0.03 D Total Protein 8.7 H Albumin 5.2 H Globulin 3.5 Albumin/Globulin Ratio 1.5 Triglycerides 285 H Cholesterol 183 LDL Cholesterol Direct 80 HDL Cholesterol 37 Arterial Blood Potassium 4.9 Venous Blood Potassium Urine Color Yellow Urine Appearance Slight-cloudy Urine pH 7.5 Ur Specific Clayton 1.020 Urine Protein 100 H Urine Glucose (UA) 100 H Urine Ketones Negative Urine Blood Moderate H Urine Nitrate Negative Urine Bilirubin Negative Urine Urobilinogen 0.2 Ur Leukocyte Esterase Moderate H Urine RBC 20 - 25 H Urine WBC 10 - 15 H Ur Epithelial Cells Many H Amorphous Sediment Small Influenza Typ A,B (EIA) Blood Type Blood Type Confirm Antibody Screen BBK History Checked 08/11/18 08/11/18 08/11/18 16:35 17:06 18:35 WBC RBC Hgb Hct MCV MCH MCHC RDW Plt Count MPV Neut % (Auto) Lymph % (Auto) Moody % (Auto) Eos % (Auto) Baso % (Auto) Lymph # (Auto) Moody # (Auto) Eos # (Auto) Baso # (Auto) Absolute Neuts (auto) PT INR APTT pCO2 pO2 HCO3 ABG pH ABG Total CO2 ABG O2 Saturation ABG Base Excess ABG Potassium VBG pH VBG pCO2 VBG HCO3 VBG Total CO2 VBG O2 Sat (Calc) VBG Base Excess VBG Potassium Sodium Chloride Glucose Lactate FiO2 Crit Value Called To Crit Value Called By Blood Gas Notified Time Potassium Carbon Dioxide Anion Gap BUN Creatinine Est GFR ( Amer) Est GFR (Non-Af Amer) Random Glucose Calcium Phosphorus Magnesium Total Bilirubin AST ALT Alkaline Phosphatase Ammonia Total Creatine Kinase Troponin I Total Protein Albumin Globulin Albumin/Globulin Ratio Triglycerides Cholesterol LDL Cholesterol Direct HDL Cholesterol Arterial Blood Potassium Venous Blood Potassium Urine Color Urine Appearance Urine pH Ur Specific Clayton Urine Protein Urine Glucose (UA) Urine Ketones Urine Blood Urine Nitrate Urine Bilirubin Urine Urobilinogen Ur Leukocyte Esterase Urine RBC Urine WBC Ur Epithelial Cells Amorphous Sediment Influenza Typ A,B (EIA) Negative for flu a/b Blood Type O POSITIVE Blood Type Confirm O POSITIVE Antibody Screen Negative BBK History Checked No verified bt 08/11/18 08/11/18 08/11/18 21:27 21:27 21:27 WBC RBC Hgb Hct MCV MCH MCHC RDW Plt Count MPV Neut % (Auto) Lymph % (Auto) Moody % (Auto) Eos % (Auto) Baso % (Auto) Lymph # (Auto) Moody # (Auto) Eos # (Auto) Baso # (Auto) Absolute Neuts (auto) PT INR APTT pCO2 pO2 24 L HCO3 ABG pH ABG Total CO2 ABG O2 Saturation ABG Base Excess ABG Potassium VBG pH 7.41 VBG pCO2 47.0 VBG HCO3 29.8 H VBG Total CO2 31.2 H VBG O2 Sat (Calc) 54.3 VBG Base Excess 4.3 H VBG Potassium 7.0 H* Sodium 132.0 Chloride 94.0 L Glucose 95 Lactate 2.6 H FiO2 21.0 Crit Value Called To Lea hair Crit Value Called By Atc Blood Gas Notified Time 2130 Potassium Carbon Dioxide Anion Gap BUN Creatinine Est GFR ( Amer) Est GFR (Non-Af Amer) Random Glucose Calcium Phosphorus Magnesium Total Bilirubin AST ALT Alkaline Phosphatase Ammonia 23 Total Creatine Kinase Troponin I 0.05 D Total Protein Albumin Globulin Albumin/Globulin Ratio Triglycerides Cholesterol LDL Cholesterol Direct HDL Cholesterol Arterial Blood Potassium Venous Blood Potassium 7.0 H* Urine Color Urine Appearance Urine pH Ur Specific Clayton Urine Protein Urine Glucose (UA) Urine Ketones Urine Blood Urine Nitrate Urine Bilirubin Urine Urobilinogen Ur Leukocyte Esterase Urine RBC Urine WBC Ur Epithelial Cells Amorphous Sediment Influenza Typ A,B (EIA) Blood Type Blood Type Confirm Antibody Screen BBK History Checked 08/12/18 08/12/18 08/12/18 00:30 05:45 05:45 WBC 16.8 H D RBC 3.57 Hgb 12.1 L Hct 36.9 L MCV 103.4 MCH 33.9 MCHC 32.8 RDW 14.9 H Plt Count 159 MPV 10.5 Neut % (Auto) Lymph % (Auto) Moody % (Auto) Eos % (Auto) Baso % (Auto) Lymph # (Auto) Moody # (Auto) Eos # (Auto) Baso # (Auto) Absolute Neuts (auto) PT INR APTT pCO2 pO2 81 H HCO3 ABG pH ABG Total CO2 ABG O2 Saturation ABG Base Excess ABG Potassium VBG pH 7.39 VBG pCO2 45.0 VBG HCO3 27.2 VBG Total CO2 28.6 H VBG O2 Sat (Calc) 97.8 H VBG Base Excess 1.7 VBG Potassium 5.9 H Sodium 130.0 L 136 Chloride 94.0 L 93 L Glucose 144 H Lactate 2.3 H FiO2 21.0 Crit Value Called To Deanna hill rn 2rno Crit Value Called By Richelle Blood Gas Notified Time 137 Potassium 5.5 H Carbon Dioxide 30 Anion Gap 18 BUN 55 H Creatinine 9.5 H* Est GFR ( Amer) 7 Est GFR (Non-Af Amer) 6 Random Glucose 99 Calcium 9.8 Phosphorus 8.8 H Magnesium 2.5 H Total Bilirubin 0.4 AST 22 ALT 18 Alkaline Phosphatase 57 Ammonia Total Creatine Kinase Troponin I 0.07 D Total Protein 7.1 Albumin 4.2 Globulin 2.9 Albumin/Globulin Ratio 1.4 Triglycerides Cholesterol LDL Cholesterol Direct HDL Cholesterol Arterial Blood Potassium Venous Blood Potassium 5.9 H Urine Color Urine Appearance Urine pH Ur Specific Clayton Urine Protein Urine Glucose (UA) Urine Ketones Urine Blood Urine Nitrate Urine Bilirubin Urine Urobilinogen Ur Leukocyte Esterase Urine RBC Urine WBC Ur Epithelial Cells Amorphous Sediment Influenza Typ A,B (EIA) Blood Type Blood Type Confirm Antibody Screen BBK History Checked Attending/Attestation - Attestation I have personally seen and examined this patient.: Yes I have fully participated in the care of the patient.: Yes I have reviewed all pertinent clinical information: Yes Notes (Text): Patient seen and examined by me with resident at 5:15PM on 08/11/18 in the emergency room. Case including HPI, physical exam, and assessment and plan discussed with resident. Agree with above with following additions/corrections. Patient is a 67-year-old male with past medical history significant for anemia, hypertension (now off medications), end-stage renal disease on dialysis M/W/F, coronary artery disease status post CABG, TIA, hyperlipidemia, gout, and right lower extremity cellulitis and infections status post multiple antibiotic treatments that presented to the emergency room with altered mental status. Patient's at bedside. History taken from patient's as patient is unable to provide history secondary to altered mental status. Patient's stated that patient was doing pretty well until this morning. This morning patient appeared to be "weak and wobbly." However, patient did have breakfast and was able to move on his own using his cane. Patient then went to [facility] for dialysis. Patient's states that around 3 PM she was called from the dialysis center and was told the patient was being sent to the emergency room. Patient's states that patient has not been complaining of anything recently . States that he did not have a cough at home. She states she did not have a fever at home that she noticed. Patient did have some chills when he arrived to the dialysis center today. Unable to obtain any review of systems from patient secondary to altered mental status. Family history: Father from cancer. Mother and had a history of diabetes. Physical exam: General: Awake and alert lying in bed in no acute distress, altered. HEENT: Normocephalic, atraumatic. Extraocular muscles intact, pupils equal and reactive, no scleral icterus. Oropharynx is pink. Positive dry mucous membranes. Neck is supple. Ears and nose externally unremarkable. Cardiovascular: Normal rhythm. Normal S1 and S2. No murmurs, rubs, or gallops appreciated Pulmonary: Normal respiratory effort. Decreased breath sounds. No rhonchi, rales, or wheezing appreciated. Gastrointestinal: Soft, nondistended. Positive left-sided abdominal tenderness with palpation. Positive bowel sounds all 4 quadrants. No guarding. Obese abdomen Musculoskeletal: Moves all extremities, however decreased range of motion which may be secondary to weakness. No calf tenderness. Bilateral lower extremity with pitting edema. Right lower extremity wrapped. Left lower extremity with erythema below knee to foot. Bilateral toes with erythema and purplish discoloration Central nervous system: Awake and alert. Not responding to questions appropriately. Follows a few commands. Dermatologic: Skin warm and dry. Face appears to be flushed. Assessment and plan: Patient is a 67-year-old male with past medical history significant for anemia, hypertension (now off medications), end-stage renal disease on dialysis M/W/F, coronary artery disease status post CABG, TIA, hyperlipidemia, gout, and right lower extremity cellulitis and infections status post multiple antibiotic treatments that presented to the emergency room with altered mental status. 1. Sepsis. Unknown source. Patient with leukocytosis, febrile, and tachycardic. Lactic acid 2.8. Follow-up repeat lactic acid. Follow-up pro-calcitonin. Patient received Vanco and Zosyn in the emergency room. Continue Zosyn. ID consulted, follow-up recommendations. Follow-up blood cultures. Follow-up influenza. Infection could be from permacath, lower extremities, versus newly placed AV fistula. Patient given small dose of IV fluids secondary to having end-stage renal disease and being on dialysis. Patient evaluated by academic coordinator. Patient does not currently meet criteria for ICU. 2. Toxic metabolic encephalopathy. Likely secondary to sepsis. Code stroke was called in the emergency room. Neurology consulted, follow-up recommendations. CT head per radiologist showed no acute intracranial abnormalities, no significant findings to account for the clinical presentation. Follow up 2D echo. Continue supportive care. Follow-up ammonia levels. 3. Left-sided abdominal pain. We'll get CT of the abdomen and pelvis. Per , patient was not complaining of abdominal pain previously. No complaints of diarrhea or constipation per . 4. Hyperkalemia. Status post dialysis today. We'll follow up repeat labs in a.m. 5. End-stage renal disease on dialysis. Patient is on dialysis Saturday/Saturday/Saturday. Nephrology consulted, follow-up recommendations. Unclear if patient completed dialysis today. 6. Right lower extremity chronic infection. Consult patient's pilates coordinator, Dr. Vu. Follow-up bilateral lower extremity venous Dopplers. ID consulted, follow-up recommendations. 7. Coronary artery disease status post CABG. Patient nothing by mouth for now secondary to altered mental status. Per , patient is no longer any blood pressure medications. Will restart patient's aspirin and atorvastatin when no longer NPO. 8. Hyperlipidemia. Restart atorvastatin when patient no longer NPO. 9. Type 2 diabetes. Patient takes Januvia at home. Will place on insulin sliding scale here. Monitor Accu-Cheks. 10. Gout. Restart colchicine once patient no longer NPO. 11. DVT prophylaxis. Heparin 12. Patient is a full code. Case discussed in detail with the patient's at bedside regarding current diagnosis and treatment plan. All questions answered.
--- NOTE | 2018-08-11 17:05 | CARD ---
APPROVED REPORT Date of service: 08/11/2018 EKG Measurement Heart [id number] <Conclusion> Poor data quality, interpretation may be adversely affected Sinus tachycardia with occasional premature ventricular complexes Right superior axis deviation Inferior infarct, age undetermined Abnormal ECG
[2018-08-11] MEDS ORDERED: Sodium Chloride 0.9% 250 ML IV SCH (18:15)
--- NOTE | 2018-08-11 20:22 | US ---
HISTORY: Leg pain and swelling. Evaluate for DVT PHYSICIAN(S): King Rodas MD. TECHNIQUE: Duplex sonography and color-flow Doppler with graded compression were used to evaluate the deep venous systems of both lower extremities. The right tibial vessels are not visualized due to bandages. FINDINGS: The visualized deep venous systems of both lower extremities are sonographically normal and compressible. Normal wave forms and augmentation are seen. There is no sonographic evidence for deep venous thrombosis in the visualized segments of both lower extremities. IMPRESSION: No sonographic evidence for deep venous thrombosis in the visualized segments of both lower extremities. Limited study on the right.
[2018-08-11 21:35] LABS: VENOUS BLOOD GAS BASE EXCESS 4.3 mmol/L (0.0-2.0); VENOUS BLOOD GAS PO2 24 mm/Hg (30-55); VENOUS BLOOD PH 7.41 (7.32-7.43)
[2018-08-11] MEDS ORDERED: Insulin Regular 1 UNITS/0.01 ML ML IVP STA (21:54)
[2018-08-11] MEDS ORDERED: Dextrose 50% SYRINGE Inj (50 ml) IVP STA (21:54)
[2018-08-11] MEDS ORDERED: Dextrose 50% SYRINGE Inj (50 ml) IV PRN (21:54)
--- NOTE | 2018-08-11 22:04 | CP.PCM.CON ---
History of Present Illness - History of Present Illness History of Present Illness: Infectious Disease Consultation: August 11, 2018 67 yo male well known to me from multiple previous hospitalizations at [facility] [place] in the past year. PMHx includes Anemia, HTN, ESRD on HD (), CAD (s/p stent placement 2007), TIA (1985), DM. The patient presented to the ED for weakness and AMS after HD treatment. Dialysis center called EMS. In ER he was found to be febrile to 103.5 F. He was AAO x 1. Normally the patient is mostly AAO x 3 but has had periods of confusion in my experience before (This was during the time the patient was on Peritoneal Dialysis). A similar episodes occurred last year where he was admitted to [facility] [place] and this was also when he was converted from PD to HD. Patient is currently awake and is able to remember me. is also at bedside. Sick contacts of 4 year old grandchildren with colds recently. Fevers up to 103.5 F. Given my previous experiences with this patient on prior hospitalizations, I would start antibiotic coverage aggressively. PMHx: Anemia, HTN, ESRD of HD, CAD, TIA, DM, chronic lower leg ulcerations PSHx: CABG (2013), Bone Spur surgery, PD catheter, HD catheter. Allergies: Dye - Iodinated Contrast, Seafood Social Hx: Social EtOH No current tobacco or illicit drug use Experimented in . Lives with and daughter Active Medications Acetaminophen (Tylenol 650 Mg Supp) 650 mg RC Q6H PRN PRN Reason: Fever >100.4 F Dextrose (Dextrose 50% Inj) 0 ml IV STAT PRN; Protocol PRN Reason: Hypoglycemia Protocol Heparin Sodium (Porcine) (Heparin) 5,000 units SC Q8 CARISA; Protocol Piperacillin Sod/Tazobactam Sod (Zosyn 2.25 Gm In 0.9% 100 Ml) 2.25 gm in 100 mls @ 100 mls/hr IVPB Q8H CARISA; Protocol Stop: 08/12/18 04:00 Sodium Chloride (Sodium Chloride 0.9%) 250 mls @ 50 mls/hr IV .Q5H CARISA Dextrose (Dextrose 5% In Water 1000 Ml) 1,000 mls @ 0 mls/hr IV .Q0M PRN; Protocol PRN Reason: Hypoglycemia Protocol Insulin Human Lispro (Humalog Med) 0 units SC ACHS CARISA; Protocol Family Hx: GI cancer in Father DM in Mother ROS: Unable to Obtain from the patient at this time. Past Patient History - Infectious Disease Hx of Infectious Diseases: None - Tetanus Immunizations Tetanus Immunization: Unknown - Past Medical History & Family History Past Medical History?: Yes - Past Social History Smoking Status: Former Smoker - CARDIAC Hx Hypertension: Yes Other/Comment: [place] - PULMONARY Hx Respiratory Disorders: Yes Hx Sleep Apnea: Yes - NEUROLOGICAL Hx Neurological Disorder: Yes Hx Transient Ischemic Attacks (TIA): Yes (1985) - HEENT Hx HEENT Problems: No - RENAL Hx Chronic Kidney Disease: Yes Other/Comment: patient is born with only 1 kidney- right - ENDOCRINE/METABOLIC Hx Endocrine Disorders: No - HEMATOLOGICAL/ONCOLOGICAL Hx Blood Disorders: No - INTEGUMENTARY Hx Dermatological Problems: No - MUSCULOSKELETAL/RHEUMATOLOGICAL Hx Musculoskeletal Disorders: Yes Hx Arthritis: Yes Hx Falls: No - GASTROINTESTINAL Hx Gastrointestinal Disorders: No - GENITOURINARY/GYNECOLOGICAL Hx Genitourinary Disorders: No - PSYCHIATRIC Hx Emotional Abuse: No Hx Physical Abuse: No Hx Substance Use: No - SURGICAL HISTORY Hx Coronary Stent: Yes Other/Comment: Cystoscopy, TURP - ANESTHESIA Hx Anesthesia Reactions: No Hx Malignant Hyperthermia: No Meds Allergies/Adverse Reactions: Allergies Allergy/AdvReac Type Severity Reaction Status Date / Time Iodinated Contrast- Oral and Allergy Severe SHORTNESS Verified 10/04/17 10:48 IV Dye OF BREATH [Iodinated Contrast Media - IV Dye] seafood Allergy Severe ANAPHYLAXIS Uncoded 10/04/17 10:48 - Medications Medications: Current Medications Acetaminophen (Tylenol 650 Mg Supp) 650 mg RC Q6H PRN PRN Reason: Fever >100.4 F Heparin Sodium (Porcine) (Heparin) 5,000 units SC Q8 CARISA; Protocol Piperacillin Sod/Tazobactam Sod (Zosyn 2.25 Gm In 0.9% 100 Ml) 2.25 gm in 100 mls @ 100 mls/hr IVPB Q8H CARISA; Protocol Stop: 08/12/18 04:00 Sodium Chloride (Sodium Chloride 0.9%) 250 mls @ 50 mls/hr IV .Q5H CARISA Insulin Human Lispro (Humalog Med) 0 units SC ACHS CARISA; Protocol Physical Exam - Constitutional Appears: Toxic, No Acute Distress, Chronically Ill Additional comments: Ill appearing. - Head Exam Head Exam: ATRAUMATIC, NORMOCEPHALIC - Eye Exam Eye Exam: EOMI, PERRL Pupil Exam: NORMAL ACCOMODATION, PERRL - ENT Exam ENT Exam: Mucous Membranes Moist, Normal External Ear Exam, TM's Normal Bilaterally - Neck Exam Neck exam: Positive for: Full Rom, Normal Inspection - Respiratory Exam Respiratory Exam: Clear to Auscultation Bilateral, NORMAL BREATHING PATTERN. absent: Rales, Rhonchi, Wheezes - Cardiovascular Exam Cardiovascular Exam: REGULAR RHYTHM, RRR, +S1, +S2 - GI/Abdominal Exam GI & Abdominal Exam: Distended, Normal Bowel Sounds, Soft. absent: Tenderness Additional comments: healed scar from CABG. Right chest wall Permacath. - Extremities Exam Extremities exam: Positive for: full ROM, pedal edema (+1-2 lower extremity e franc.) Additional comments: right leg ulcerations currently wrapped in bandages, chronic venous stasis on both lower extremities. - Neurological Exam Neurological exam: Alert, CN II-XII Intact, Oriented x3 Additional comments: generalized weakness. - Psychiatric Exam Psychiatric exam: Normal Affect, Normal Mood - Skin Skin Exam: Intact, Normal Color Results - Vital Signs Recent Vital Signs: Last Vital Signs Temp 101.3 F H 08/11/18 17:42 Pulse 112 H 08/11/18 17:42 Resp 18 08/11/18 17:42 BP 130/59 L 08/11/18 17:42 Pulse Ox 99 08/11/18 17:42 - Labs Result Diagrams: 08/11/18 16:10 08/11/18 16:10 Labs: Laboratory Results - last 24 hr 08/11/18 08/11/18 08/11/18 16:08 16:10 16:10 WBC 21.4 H D RBC 3.88 Hgb 13.2 L Hct 39.5 L MCV 101.8 MCH 34.0 MCHC 33.4 RDW 15.0 H Plt Count 188 MPV 10.8 Neut % (Auto) 86.6 H Lymph % (Auto) 6.5 L Steele % (Auto) 6.0 Eos % (Auto) 0.8 L Baso % (Auto) 0.1 Lymph # (Auto) 1.4 Steele # (Auto) 1.3 H Eos # (Auto) 0.2 Baso # (Auto) 0.03 Absolute Neuts (auto) 18.56 H PT 12.3 INR 1.11 APTT 34.8 pCO2 pO2 28 L HCO3 ABG pH ABG Total CO2 ABG O2 Saturation ABG Base Excess ABG Potassium VBG pH 7.42 VBG pCO2 46.0 VBG HCO3 29.8 H VBG Total CO2 31.2 H VBG O2 Sat (Calc) 62.9 VBG Base Excess 4.5 H VBG Potassium 5.3 H Sodium 133.0 Chloride 92.0 L Glucose 155 H Lactate 2.8 H FiO2 21.0 Crit Value Called To Dr lili alfaro Crit Value Called By Blood Gas Notified Time 1619 Potassium Carbon Dioxide Anion Gap BUN Creatinine Est GFR ( Amer) Est GFR (Non-Af Amer) Random Glucose Calcium Total Bilirubin AST ALT Alkaline Phosphatase Ammonia Total Creatine Kinase Troponin I Total Protein Albumin Globulin Albumin/Globulin Ratio Triglycerides Cholesterol LDL Cholesterol Direct HDL Cholesterol Arterial Blood Potassium Venous Blood Potassium 5.3 H Urine Color Urine Appearance Urine pH Ur Specific [place] Urine Protein Urine Glucose (UA) Urine Ketones Urine Blood Urine Nitrate Urine Bilirubin Urine Urobilinogen Ur Leukocyte Esterase Urine RBC Urine WBC Ur Epithelial Cells Amorphous Sediment Influenza Typ A,B (EIA) Blood Type Blood Type Confirm Antibody Screen BBK History Checked 08/11/18 08/11/18 08/11/18 16:10 16:15 16:15 WBC RBC Hgb Hct MCV MCH MCHC RDW Plt Count MPV Neut % (Auto) Lymph % (Auto) Steele % (Auto) Eos % (Auto) Baso % (Auto) Lymph # (Auto) Steele # (Auto) Eos # (Auto) Baso # (Auto) Absolute Neuts (auto) PT INR APTT pCO2 38 pO2 57.0 L HCO3 27.0 ABG pH 7.46 H ABG Total CO2 28.2 H ABG O2 Saturation 94.5 L ABG Base Excess 3.1 H ABG Potassium 4.9 VBG pH VBG pCO2 VBG HCO3 VBG Total CO2 VBG O2 Sat (Calc) VBG Base Excess VBG Potassium Sodium 134 132.0 Chloride 90 L 94.0 L Glucose 158 H Lactate 2.3 H FiO2 32.0 Crit Value Called To Dr gala alfaro Crit Value Called By Blood Gas Notified Time 1624 Potassium 5.4 H Carbon Dioxide 28 Anion Gap 21 H BUN 42 H Creatinine 8.0 H* Est GFR ( Amer) 8 Est GFR (Non-Af Amer) 7 Random Glucose 157 H Calcium 10.3 Total Bilirubin 0.5 AST 24 ALT 21 Alkaline Phosphatase 78 Ammonia Total Creatine Kinase 48 Troponin I 0.03 D Total Protein 8.7 H Albumin 5.2 H Globulin 3.5 Albumin/Globulin Ratio 1.5 Triglycerides 285 H Cholesterol 183 LDL Cholesterol Direct 80 HDL Cholesterol 37 Arterial Blood Potassium 4.9 Venous Blood Potassium Urine Color Yellow Urine Appearance Slight-cloudy Urine pH 7.5 Ur Specific [place] 1.020 Urine Protein 100 H Urine Glucose (UA) 100 H Urine Ketones Negative Urine Blood Moderate H Urine Nitrate Negative Urine Bilirubin Negative Urine Urobilinogen 0.2 Ur Leukocyte Esterase Moderate H Urine RBC 20 - 25 H Urine WBC 10 - 15 H Ur Epithelial Cells Many H Amorphous Sediment Small Influenza Typ A,B (EIA) Blood Type Blood Type Confirm Antibody Screen BBK History Checked 08/11/18 08/11/18 08/11/18 16:35 17:06 18:35 WBC RBC Hgb Hct MCV MCH MCHC RDW Plt Count MPV Neut % (Auto) Lymph % (Auto) Steele % (Auto) Eos % (Auto) Baso % (Auto) Lymph # (Auto) Steele # (Auto) Eos # (Auto) Baso # (Auto) Absolute Neuts (auto) PT INR APTT pCO2 pO2 HCO3 ABG pH ABG Total CO2 ABG O2 Saturation ABG Base Excess ABG Potassium VBG pH VBG pCO2 VBG HCO3 VBG Total CO2 VBG O2 Sat (Calc) VBG Base Excess VBG Potassium Sodium Chloride Glucose Lactate FiO2 Crit Value Called To Crit Value Called By Blood Gas Notified Time Potassium Carbon Dioxide Anion Gap BUN Creatinine Est GFR ( Amer) Est GFR (Non-Af Amer) Random Glucose Calcium Total Bilirubin AST ALT Alkaline Phosphatase Ammonia Total Creatine Kinase Troponin I Total Protein Albumin Globulin Albumin/Globulin Ratio Triglycerides Cholesterol LDL Cholesterol Direct HDL Cholesterol Arterial Blood Potassium Venous Blood Potassium Urine Color Urine Appearance Urine pH Ur Specific [place] Urine Protein Urine Glucose (UA) Urine Ketones Urine Blood Urine Nitrate Urine Bilirubin Urine Urobilinogen Ur Leukocyte Esterase Urine RBC Urine WBC Ur Epithelial Cells Amorphous Sediment Influenza Typ A,B (EIA) Negative for flu a/b Blood Type O POSITIVE Blood Type Confirm O POSITIVE Antibody Screen Negative BBK History Checked No verified bt 08/11/18 08/11/18 21:27 21:27 WBC RBC Hgb Hct MCV MCH MCHC RDW Plt Count MPV Neut % (Auto) Lymph % (Auto) Steele % (Auto) Eos % (Auto) Baso % (Auto) Lymph # (Auto) Steele # (Auto) Eos # (Auto) Baso # (Auto) Absolute Neuts (auto) PT INR APTT pCO2 pO2 24 L HCO3 ABG pH ABG Total CO2 ABG O2 Saturation ABG Base Excess ABG Potassium VBG pH 7.41 VBG pCO2 47.0 VBG HCO3 29.8 H VBG Total CO2 31.2 H VBG O2 Sat (Calc) 54.3 VBG Base Excess 4.3 H VBG Potassium 7.0 H* Sodium 132.0 Chloride 94.0 L Glucose 95 Lactate 2.6 H FiO2 21.0 Crit Value Called To Lea hair Crit Value Called By Atc Blood Gas Notified Time 2129 Potassium Carbon Dioxide Anion Gap BUN Creatinine Est GFR ( Amer) Est GFR (Non-Af Amer) Random Glucose Calcium Total Bilirubin AST ALT Alkaline Phosphatase Ammonia 23 Total Creatine Kinase Troponin I Total Protein Albumin Globulin Albumin/Globulin Ratio Triglycerides Cholesterol LDL Cholesterol Direct HDL Cholesterol Arterial Blood Potassium Venous Blood Potassium 7.0 H* Urine Color Urine Appearance Urine pH Ur Specific [place] Urine Protein Urine Glucose (UA) Urine Ketones Urine Blood Urine Nitrate Urine Bilirubin Urine Urobilinogen Ur Leukocyte Esterase Urine RBC Urine WBC Ur Epithelial Cells Amorphous Sediment Influenza Typ A,B (EIA) Blood Type Blood Type Confirm Antibody Screen BBK History Checked Assessment & Plan - Assessment and Plan (Free Text) Assessment: 67 yo male well known to me on previous hospitalization to [facility] [place]. The patient with generalized weakness, fevers up to 103.5 F, and leukocytosis up to 21. Lactic acid of 2.8. Procalcitonin pending. Patient is a relatively recent convert to HD within the past year. 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 Would obtain cultures of the blood, urine (if present), and of the right leg ulcerations. Would start aggressively on antibiotic coverage with Meropenem instead of Zosyn and give Vancomycin after HD sessions. Monitor glucose levels. Would give dose of aminoglycosideat this time as well. Head CT showed no acute changes Chest X-ray showing no acute cardiopulmonary changes. Extremity ultrasound showed no DVT on the left leg but right leg was a limited study but no visualized DVT. Abd/Pel CT pending. Thank you for allowing me to participate in the care of this patient, we will follow with you.
[2018-08-11] MEDS ORDERED: Gentamicin 300 MG in Sodium Chloride 0.9% 100 ML IVPB SCH (23:00)
[2018-08-11] MEDS: Insulin Lispro (humaLOG) MEDIUM Coverage SC SCH (23:41)
[2018-08-12] MEDS ORDERED: Piperacillin/Tazobact 2.25gm 2.25 GM/100 ML BAG IVPB SCH
[2018-08-12] MEDS: MEROPENEM 500 MG in NS 500 MG/50 ML BAG IVPB SCH ×2 (00:33→22:00)
[2018-08-12 01:37] LABS: VENOUS BLOOD GAS BASE EXCESS 1.7 mmol/L (0.0-2.0); VENOUS BLOOD GAS PO2 81 mm/Hg (30-55); VENOUS BLOOD PH 7.39 (7.32-7.43)
--- NOTE | 2018-08-12 05:52 | PCM.SEPTIC ---
Sepsis Progress Note - Reassessment Type Date of Evaluation: 08/11/18 Time of Evaluation: 19:30 Reassessment Type: Non-invasive reassessment - Non Invasive Reassessment Were the most recent vital sign reviewed: Yes Vital Sign (Latest): Temp Pulse Resp BP Pulse Ox 101.3 F 113 21 119/63 99 08/11/18 19:20 08/11/18 19:20 08/11/18 19:20 08/11/18 19:20 08/11/18 19:20 Cardiovascular: Yes: Tachycardia. No: Edema, JVD, Irregularly Irregular Respiratory: Yes: Normal Breath Sounds. No: Accessory Muscle Use, Crackles, Rales, Rhonchi, Stridor, Wheezing Capillary Refill: Normal (Less than 2 sec) Pulses: Normal Radial, Normal Dorsalis Pedis, Normal Posterior Tibialis Skin: Warm, Dry
[2018-08-12 06:05] LABS: HEMOGLOBIN 12.1 g/dL (14.0-18.0); MEAN CELL VOLUME 103.4 fl (80.0-105.0); MEAN CORPUSCULAR HEMOGLOBIN 33.9 pg (25.0-35.0); MEAN CORPUSCULAR HGB CONC 32.8 g/dl (31.0-37.0); MEAN PLATELET VOLUME 10.5 fl (7.0-11.0); RBC 3.57 10^6/uL (3.5-6.1); RED CELL DISTRIBUTION WIDTH 14.9 % (11.5-14.5); WHITE BLOOD COUNT 16.8 10^3/uL (4.5-11.0)
[2018-08-12 06:32] LABS: TROPONIN I 0.07 ng/mL
[2018-08-12 06:42] LABS: ALB/GLOB RATIO 1.4 (1.1-1.8); ALBUMIN 4.2 g/dL (3.0-4.8); CALCIUM 9.8 mg/dL (8.4-10.5)
[2018-08-12] MEDS: Insulin Lispro (humaLOG) MEDIUM Coverage SC SCH ×4 (07:33→21:30)
--- NOTE | 2018-08-12 07:52 | CP.PCM.PN ---
<Kvng Johnson - Last Filed: 08/12/18 12:11> Subjective - Date & Time of Evaluation Date of Evaluation: 08/12/18 Time of Evaluation: 08:00 - Subjective Subjective: Kvng Johnson PGY1 Medicine Progress Note for Dr. Reyes Patient was seen and examined at bedside this morning. Vitals: Temp 98 (Tmax 102.1 overnight), HR 85, BP 145/79, RR 20. Patient is more alert and awake this morning. AAOx3. He denies any cp, sob, fevers, chilld, n/v/d. No adverse overnight events. Patient has passed nursing speech and swallow eval. A full 12 point ROS was conducted and unremarkable except as stated above. Objective - Vital Signs/Intake and Output Vital Signs (last 24 hours): Temp Pulse Resp BP Pulse Ox 98.0 F 85 20 145/79 100 08/12/18 06:00 08/12/18 06:00 08/12/18 06:00 08/12/18 06:00 08/12/18 06:00 Intake and Output: 08/12/18 08/12/18 06:59 18:59 Intake Total 360 Output Total 0 Balance 360 - Medications Medications: Current Medications Acetaminophen (Tylenol 650 Mg Supp) 650 mg RC Q6H PRN PRN Reason: Fever >100.4 F Last Admin: 08/11/18 23:39 Dose: 650 mg Dextrose (Dextrose 50% Inj) 0 ml IV STAT PRN; Protocol PRN Reason: Hypoglycemia Protocol Heparin Sodium (Porcine) (Heparin) 5,000 units SC Q8 [facility]; Protocol Last Admin: 08/12/18 05:26 Dose: 5,000 units Dextrose (Dextrose 5% In Water 1000 Ml) 1,000 mls @ 0 mls/hr IV .Q0M PRN; Protocol PRN Reason: Hypoglycemia Protocol Meropenem/Sodium Chloride (Merrem Iv 500 Mg/Ns 50 Ml) 500 mg in 50 mls @ 100 mls/hr IVPB Q24H CARISA; Protocol Last Admin: 08/12/18 00:33 Dose: 100 mls/hr Gentamicin Sulfate 300 mg/ (Sodium Chloride) 107.5 mls @ 100 mls/hr IVPB Q24H [facility]ISA; Protocol Last Admin: 08/12/18 00:33 Dose: 100 mls/hr Insulin Human Lispro (Humalog Med) 0 units SC ACHS [facility]; Protocol Last Admin: 08/12/18 07:33 Dose: Not Given - Labs Labs: 08/12/18 05:45 08/12/18 05:45 PT 12.3 SECONDS (9.4-12.5) 08/11/18 16:10 INR 1.11 08/11/18 16:10 APTT 34.8 Seconds (26.9-38.3) 08/11/18 16:10 - Constitutional Appears: No Acute Distress - Head Exam Head Exam: ATRAUMATIC, NORMAL INSPECTION, NORMOCEPHALIC - Eye Exam Eye Exam: EOMI, Normal appearance - ENT Exam ENT Exam: Mucous Membranes Moist - Neck Exam Neck Exam: Full ROM - Respiratory Exam Respiratory Exam: Clear to Ausculation Bilateral. absent: Chest Wall Tenderness, Rales, Rhonchi, Wheezes - Cardiovascular Exam Cardiovascular Exam: REGULAR RHYTHM, +S1, +S2 - GI/Abdominal Exam GI & Abdominal Exam: Soft, Normal Bowel Sounds. absent: Guarding, Rigid, Tenderness, Organomegaly, Rebound - Extremities Exam Extremities Exam: Normal Capillary Refill. absent: Calf Tenderness, Joint Swelling, Tenderness Additional comments: Lower extremities are warm to touch. Mildly erythematous. Right bandage of the lower extremity is in place for wound ulcers. - Neurological Exam Neurological Exam: Alert, Awake, CN II-XII Intact, Oriented x3 Additional comments: 5/5 motor strength in all extremities. Sensation intact in all distal extremities. - Psychiatric Exam Psychiatric exam: Normal Affect, Normal Mood - Skin Skin Exam: Dry, Intact, Normal Color, Warm Assessment and Plan - Assessment and Plan (Free Text) Assessment: Patient is a 67 y/o M with PMHx Anemia, HTN, ESRD on HD (MW), CAD (s/p stent placement 2007), TIA (1985), DM who presented to the ED for weakness and AMS after HD treatment. Patient will be admitted for Toxic Metabolic Encephalopathy due to Sepsis 2/2 UTI vs LE Leg Ulcers vs Recent AV Fistula Placement. Plan: Toxic Metabolic Encephalopathy due to Sepsis 2/2 UTI vs LE Leg Ulcers vs Recent AV Fistula Placement - c/w merrem and gentamicin (Day 2) as per ID recs - ID is on consult (Dr. Fitzpatrick). Recs appreciated. - switched to acetaminophen PO q6 prn for fever control as patient passed speech and swallow - Fever improving; leukocytosis downtrending - repeat lactate level downtrended - f/u blood cx and urine cx results - f/u CT Abdomen w/o contrast to r/o other sources of infection - UA (08/11): mod LE, 10-15 wbc but contaminated sample - many epithelial cells - CXR (08/11): no active cardiopulmonary disease - ICU on consult (Dr. Marybeth Clark). Patient does not meet ICU admission criteria. - Podiatry consulted (Dr. Vu). Recs appreciated. - Neurology (Dr. [place]) was on consult to r/o stroke. Given normal Head CT and improved mental status, less likely stroke. No further neuro recs. - LE Venous doppler (08/11) negative for DVT - ammonia level negative Hyperkalemia and Worsening Renal Function with Hx ESRD (MWF) - pending dialysis - Nephro consulted (Dr. Garcia). Recs appreciated. Patient will need dialysis today - Uptrending BUN/Cr (Cr 9.5); pending dialysis which will also resolve patient's hyperkalemia. - K was 5.5 - restarted on home med cinacalcet Hx DM - ISS (med) - Accuchecks - Resumed home med gabapentin for neuropathy Hx HTN - normotensive Hx HLD - restarted on home med Lipitor Hx BPH - restarted on home med flomax Diet: Renal Diet DVT ppx: Hep sc PT is on board. Lidoderm patch for low back pain. Encourage OOB to Chair. Dispo: Monitor patient on telemetry. Significantly improved mental status. Pending results of cultures to determine source of infection. Pending hemodialysis as per nephro. Passed speech and swallow, may resume home medications. Case was discussed and reviewed with Attending Physician, Dr. Reyes. <Kassie Reyes - Last Filed: 08/13/18 17:31> Objective - Vital Signs/Intake and Output Vital Signs (last 24 hours): Temp Pulse Resp BP Pulse Ox 98.9 F 92 H 20 95/62 L 96 08/13/18 15:18 08/13/18 15:18 08/13/18 15:18 08/13/18 15:18 08/13/18 15:18 Intake and Output: 08/13/18 08/13/18 06:59 18:59 Intake Total 720 Balance 720 - Medications Medications: Current Medications Acetaminophen (Tylenol 325mg Tab) 650 mg PO Q6H PRN PRN Reason: Fever >100.4 F Last Admin: 08/13/18 08:57 Dose: 650 mg Aspirin (Ecotrin) 81 mg PO DAILY [facility] Atorvastatin Calcium (Lipitor) 20 mg PO DAILY [facility] Last Admin: 08/13/18 16:30 Dose: Not Given Betamethasone/Clotrimazole (Lotrisone) 0 gm TOP BID [facility] Last Admin: 08/13/18 16:36 Dose: Not Given Calcium Acetate (Phoslo) 1,334 mg PO WM [facility] Last Admin: 08/13/18 17:11 Dose: 1,334 mg Cinacalcet (Sensipar) 30 mg PO DAILY [facility] Last Admin: 08/13/18 16:29 Dose: Not Given Dextrose (Dextrose 50% Inj) 0 ml IV STAT PRN; Protocol PRN Reason: Hypoglycemia Protocol Gabapentin (Neurontin) 300 mg PO BID PRN; Protocol PRN Reason: Leg cramps Last Admin: 08/13/18 13:52 Dose: 300 mg Heparin Sodium (Porcine) (Heparin) 5,000 units SC Q8 [facility]; Protocol Last Admin: 08/13/18 16:30 Dose: Not Given Dextrose (Dextrose 5% In Water 1000 Ml) 1,000 mls @ 0 mls/hr IV .Q0M PRN; Protocol PRN Reason: Hypoglycemia Protocol Meropenem/Sodium Chloride (Merrem Iv 500 Mg/Ns 50 Ml) 500 mg in 50 mls @ 100 mls/hr IVPB Q24H [facility]; Protocol Last Admin: 08/12/18 22:00 Dose: 100 mls/hr Insulin Human Lispro (Humalog Med) 0 units SC ACHS [facility]; Protocol Last Admin: 08/13/18 16:35 Dose: Not Given Lidocaine (Lidoderm) 1 ea TD DAILY [facility] Last Admin: 08/12/18 12:19 Dose: 1 ea Sevelamer HCl (Renagel) 1,600 mg PO TID [facility] Last Admin: 08/13/18 16:29 Dose: Not Given Tamsulosin HCl (Flomax) 0.4 mg PO DAILY [facility] Last Admin: 08/13/18 16:36 Dose: Not Given - Labs Labs: 08/13/18 10:20 08/13/18 05:30 PT 12.3 SECONDS (9.4-12.5) 08/11/18 16:10 INR 1.11 08/11/18 16:10 APTT 34.8 Seconds (26.9-38.3) 08/11/18 16:10 Attending/Attestation - Attestation I have personally seen and examined this patient.: Yes I have fully participated in the care of the patient.: Yes I have reviewed all pertinent clinical information, including history, physical exam and plan: Yes Notes (Text): Patient seen and examined by me with resident at 9:25AM on 08/12/18. Case including HPI, physical exam, and assessment and plan discussed with resident. Agree with above with following additions/corrections. Patient is a 67-year-old male with past medical history significant for anemia, hypertension (now off medications), end-stage renal disease on dialysis M/W/F, coronary artery disease status post CABG, TIA, hyperlipidemia, gout, and right lower extremity cellulitis and infections status post multiple antibiotic treatments that presented to the emergency room with altered mental status. Patient states he is feeling much better today. Patient is AAOx3. States he is having some back pain secondary to his positioning in the bed. Patient is asking to sit in chair. States he has some pain in his right lower extremity but it's chronic. Denies any abdominal pain today. No chest pain or shortness of breath. No headaches or dizziness. No fevers or chills. No dysuria. No nausea or v omiting. No diarrhea. Physical exam General: Awake and alert lying in bed in no acute distress HEENT: Normocephalic, atraumatic. Extraocular muscles intact, pupils equal and reactive, no scleral icterus. Oropharynx is pink and moist. No pharyngeal erythema or exudate appreciated. Neck is supple. Cardiovascular: Normal rhythm. Normal S1 and S2. No murmurs, rubs, or gallops appreciated Pulmonary: Normal respiratory effort. No rhonchi, rales, or wheezing appreciated. Gastrointestinal: Soft, nondistended. Nontender. Positive bowel sounds all 4 quadrants. No guarding. Obese abdomen Musculoskeletal: Moves all extremities. No calf tenderness. Bilateral lower extremity with pitting edema. Right lower extremity with [place] Boot. Left lower extremity with erythema below knee to foot (chronic per patient and ). Bilateral toes with erythema and purplish discoloration (also chronic). Central nervous system: AAOx3, CN 2-12 grossly intact. Dermatologic: Skin warm and dry. Assessment and plan: Patient is a 67-year-old male with past medical history significant for anemia, hypertension (now off medications), end-stage renal disease on dialysis M/W/F, coronary artery disease status post CABG, TIA, hyperlipidemia, gout, and right lower extremity cellulitis and infections status post multiple antibiotic treatments that presented to the emergency room with altered mental status. 1. Sepsis. Leukocytosis improving. Afebrile so far today. Lactic acid improved. Continue Merrem. ID following, recommendations appreciated. One blood culture positive for gram positive cocci. Influenza negative. Procalcitonin 1.58. Wound culture pending from right leg. 2. Toxic metabolic encephalopathy. Likely secondary to sepsis. Resolved. Code stroke was called in the emergency room. Neurology following, recommendations appreicated. CT head per radiologist showed no acute intracranial abnormalities, no significant findings to account for the clinical presentation. Follow up 2D echo. Continue supportive care. Ammonia 23. 3. Left-sided abdominal pain. Resolved. CT abd/pelvis per radiologist showed no acute intra-abdominal finiding. 4. Hyperkalemia. 5.5 today. Discussed with conveyor belt operator. Patinent for dialysis tomorrow. 5. End-stage renal disease on dialysis. Patient is on dialysis Saturday//Saturday. Nephrology following, recommendations appreciated. Patient for dialysis tomorrow. Continue home sensipar, renagel, and phoslo. 6. Right lower extremity chronic infection. Continue with America boot. Podiatry following, recommendations appreciated. Bilateral lower extremity dopplers negative for DVT. Bilateral lower extremity BELLE exam per radiologist shows normal resting ABIs, possible mild symmetric tibial disease. Wound culture pending. 7. Coronary artery disease status post CABG. Continue home lipitor and ASA. 8. Hyperlipidemia. Continue Lipitor 9. Type 2 diabetes. Patient takes Januvia at home. Continue insulin sliding scale. Continue to monitor Accu-Cheks. 10. Gout. No acute issues currently. 11. DVT prophylaxis. Heparin 12. Patient is a full code. Case discussed in detail with the patient in detail regarding current diagnosis and treatment plan. All questions answered.
[2018-08-12] MEDS ORDERED: Non Formulary Medication (Cholecalciferol (Vitamin D3) [Vitamin D3] 50,000 UNIT) PO SCH (09:30)
[2018-08-12] MEDS ORDERED: CALCIUM ACETATE PO SCH (10:00)
--- NOTE | 2018-08-12 10:04 | CP.PCM.CON ---
History of Present Illness - History of Present Illness History of Present Illness: Neurology Consultation Note: Consult requested by Dr. Kassie Reyes Mr. Melgar is a 67-year-old man with a past medical history of anemia, HTN, ESRD on HD (), CAD (s/p stent placement 2007), TIA (1985), DM who presented to the ED for weakness and AMS after HD treatment. He was febrile to 103.5 and tachycardic. He was confused with gait instability. Neurology was called to assist with the management and care. CT scan of the head did not show any acute findings. Today, the patient's mental status is back to normal. Review of Systems - Constitutional Constitutional: As Per HPI - EENT Eyes: absent: As Per HPI, Blind Spots, Blurred Vision, Change in Vision, Decreased Night Vision, Diplopia, Discharge, Dry Eye, Exophthalmos, Floaters, Irritation, Itchy Eyes, Loss of Peripheral Vision, Pain, Photophobia, Requires Corrective Lenses, Sees Flashes, Spots in Vision, Tunnel Vision, Other Visual Disturbances, Loss of Vision, Other Ears: absent: As Per HPI, Decreased Hearing, Ear Discharge, Ear Pain, Tinnitus, Abnormal Hearing, Disequilibrium, Dizziness, Other Nose/Mouth/Throat: absent: As Per HPI, Epistaxis, Nasal Congestion, Nasal Discharge, Nasal Obstruction, Nasal Trauma, Nose Pain, Post Nasal Drip, Sinus Pain, Sinus Pressure, Bleeding Gums, Change in Voice, Dental Pain, Dry Mouth, Dysphagia, Halitosis, Hoarsness, Lip Swelling, Mouth Lesions, Mouth Pain, Odynophagia, Sore Throat, Throat Swelling, Tongue Swelling, Facial Pain, Neck Pain, Neck Mass, Other - Cardiovascular Cardiovascular: absent: As Per HPI, Acrocyanosis, Chest Pain, Chest Pain at Rest, Chest Pain with Activity, Claudication, Diaphoresis, Dyspnea, Dyspnea on Exertion, Edema, Irregular Heart Rhythm, Pain Radiating to Arm/Neck/Jaw, Leg Edema, Leg Ulcers, Lightheadedness, Orthopnea, Palpitations, Paroxysmal Nocturnal Dyspnea, Pedal Edema, Radiating Pain, Rapid Heart Rate, Slow Heart Rate, Syncope, Other - Respiratory Respiratory: absent: As Per HPI, Cough, Dyspnea, Hemoptysis, Dyspnea on Exertion, Wheezing, Snoring, Stridor, Pain on Inspiration, Chest Congestion, Excessive Mucous Production, Change in Mucous Color, Pain with Coughing, Other - Genitourinary Genitourinary: absent: As Per HPI, Change in Urinary Stream, Difficulty Urinating, Dysuria, Flank Pain, Hematuria, Pyuria, Nocturia, Urinary Incontinence, Urinary Frequency, Urinary Hesitance, Urinary Urgency, Voiding Freq/Small Amts, Freq UTI, Hx Renal/Bladder Calculi, Hx /Renal Surgery, Bladder Distension, Other - Musculoskeletal Musculoskeletal: absent: As Per HPI, Abnormal Gait, Arthralgias, Atrophy, Back Pain, Deformity, Joint Swelling, Limited Range of Motion, Loss of Height, Muscle Cramps, Muscle Weakness, Myalgias, Neck Pain, Numbness, Radiating Pain into Pal[place] b, Stiffness, Tingling, Other - Integumentary Integumentary: As Per HPI - Neurological Neurological: As Per HPI - Psychiatric Psychiatric: absent: As Per HPI, Abnormal Sleep Pattern, Anhedonia, Anxiety, Auditory Hallucinations, Behavioral Changes, Change in Appetite, Change in Libid o, Confusion, Depression, Difficulty Concentrating, Hallucinations, Homicidal Ideation, Hopelessness, Irritability, Memory Loss, Mood Swings, Panic Attacks, Paranoia, Suicidal Ideation, Visual Hallucinations, Tactile Hallucinations, Other - Endocrine Endocrine: absent: As Per HPI, Change in Body Appearance, Change in Libido, Cold Intolorance, Deepening of Voice, Excessive Sweating, Fatigue, Flushing, Heat Intolorance, Increase in Ring/Shoe/Hat Size, Palpitations, Polydipsia, Polyphagia, Polyuria, Other - Hematologic/Lymphatic Hematologic: absent: As Per HPI, Easy Bleeding, Easy Bruising, Lymphadenopathy, Other Past Patient History - Infectious Disease Hx of Infectious Diseases: None - Tetanus Immunizations Tetanus Immunization: Unknown - Past Medical History & Family History Past Medical History?: Yes - Past Social History Smoking Status: Former Smoker - CARDIAC Hx Cardiac Disorders: Yes Hx Hypercholesterolemia: Yes Hx Hypertension: Yes Hx Peripheral Vascular Disease: Yes - PULMONARY Hx Respiratory Disorders: Yes Hx Sleep Apnea: Yes - NEUROLOGICAL Hx Neurological Disorder: Yes Hx Transient Ischemic Attacks (TIA): Yes (1985) - HEENT Hx HEENT Problems: Yes (uses glasses) - RENAL Date of Last Dialysis Treatment: 08/11/18 - ENDOCRINE/METABOLIC Hx Endocrine Disorders: Yes Hx Diabetes Mellitus Type 2: Yes - HEMATOLOGICAL/ONCOLOGICAL Hx Blood Disorders: Yes Hx Anemia: Yes - INTEGUMENTARY Hx Dermatological Problems: Yes (stasis ulcer to right leg) - MUSCULOSKELETAL/RHEUMATOLOGICAL Hx Falls: No - GASTROINTESTINAL Hx Gastrointestinal Disorders: No - GENITOURINARY/GYNECOLOGICAL Hx Genitourinary Disorders: Yes (BPH) - PSYCHIATRIC Hx Substance Use: No - SURGICAL HISTORY Hx Surgeries: Yes (TONSILLECOTMY) Hx Cardiac Catheterization: Yes (stentx1) Hx Coronary Stent: Yes Hx Open Heart Surgery: Yes Other/Comment: Cystoscopy, TURP - ANESTHESIA Hx Anesthesia Reactions: No Hx Malignant Hyperthermia: No Meds Allergies/Adverse Reactions: Allergies Allergy/AdvReac Type Severity Reaction Status Date / Time Iodinated Contrast- Oral and Allergy Severe SHORTNESS Verified 10/04/17 10:48 IV Dye OF BREATH [Iodinated Contrast Media - IV Dye] seafood Allergy Severe ANAPHYLAXIS Uncoded 10/04/17 10:48 - Medications Medications: Current Medications Acetaminophen (Tylenol 650 Mg Supp) 650 mg RC Q6H PRN PRN Reason: Fever >100.4 F Last Admin: 08/11/18 23:39 Dose: 650 mg Atorvastatin Calcium (Lipitor) 20 mg PO DAILY CARISA Calcium Acetate (Phoslo) 1,334 mg PO WM CAIRSA Cinacalcet (Sensipar) 30 mg PO DAILY CARISA Dextrose (Dextrose 50% Inj) 0 ml IV STAT PRN; Protocol PRN Reason: Hypoglycemia Protocol Gabapentin (Neurontin) 300 mg PO HS CARISA; Protocol Heparin Sodium (Porcine) (Heparin) 5,000 units SC Q8 CARISA; Protocol Last Admin: 08/12/18 05:26 Dose: 5,000 units Dextrose (Dextrose 5% In Water 1000 Ml) 1,000 mls @ 0 mls/hr IV .Q0M PRN; Protocol PRN Reason: Hypoglycemia Protocol Meropenem/Sodium Chloride (Merrem Iv 500 Mg/Ns 50 Ml) 500 mg in 50 mls @ 100 mls/hr IVPB Q24H CARISA; Protocol Last Admin: 08/12/18 00:33 Dose: 100 mls/hr Gentamicin Sulfate 300 mg/ (Sodium Chloride) 107.5 mls @ 100 mls/hr IVPB Q24H CARISA; Protocol Last Admin: 08/12/18 00:33 Dose: 100 mls/hr Insulin Human Lispro (Humalog Med) 0 units SC ACHS CARISA; Protocol Last Admin: 08/12/18 07:33 Dose: Not Given Tamsulosin HCl (Flomax) 0.4 mg PO DAILY CARISA Physical Exam - Constitutional Appears: Chronically Ill - Head Exam Head Exam: ATRAUMATIC, NORMAL INSPECTION, NORMOCEPHALIC - Eye Exam Eye Exam: EOMI, Normal appearance, PERRL - ENT Exam ENT Exam: Mucous Membranes Moist, Normal Exam - Neck Exam Neck exam: Positive for: Normal Inspection - Respiratory Exam Respiratory Exam: Clear to Auscultation Bilateral, NORMAL BREATHING PATTERN - Cardiovascular Exam Cardiovascular Exam: REGULAR RHYTHM, +S1, +S2 - GI/Abdominal Exam GI & Abdominal Exam: Normal Bowel Sounds, Soft. absent: Tenderness - Rectal Exam Rectal Exam: Deferred - Neurological Exam Neurological exam: Abnormal Gait, Alert, CN II-XII Intact, Oriented x3, Reflexes Normal - Psychiatric Exam Psychiatric exam: Normal Affect, Normal Mood - Skin Skin Exam: Abrasion, Rash Results - Vital Signs Recent Vital Signs: Last Vital Signs Temp 98.0 F 08/12/18 06:00 Pulse 85 08/12/18 06:00 Resp 20 08/12/18 06:00 BP 145/79 08/12/18 06:00 Pulse Ox 100 08/12/18 06:00 - Labs Result Diagrams: 08/12/18 05:45 08/12/18 05:45 Labs: Laboratory Results - last 24 hr 08/11/18 08/11/18 08/11/18 16:08 16:10 16:10 WBC 21.4 H D RBC 3.88 Hgb 13.2 L Hct 39.5 L MCV 101.8 MCH 34.0 MCHC 33.4 RDW 15.0 H Plt Count 188 MPV 10.8 Neut % (Auto) 86.6 H Lymph % (Auto) 6.5 L [place] % (Auto) 6.0 Eos % (Auto) 0.8 L Baso % (Auto) 0.1 Lymph # (Auto) 1.4 [place] # (Auto) 1.3 H Eos # (Auto) 0.2 Baso # (Auto) 0.03 Absolute Neuts (auto) 18.56 H PT 12.3 INR 1.11 APTT 34.8 pCO2 pO2 28 L HCO3 ABG pH ABG Total CO2 ABG O2 Saturation ABG Base Excess ABG Potassium VBG pH 7.42 VBG pCO2 46.0 VBG HCO3 29.8 H VBG Total CO2 31.2 H VBG O2 Sat (Calc) 62.9 VBG Base Excess 4.5 H VBG Potassium 5.3 H Sodium 133.0 Chloride 92.0 L Glucose 155 H Lactate 2.8 H FiO2 21.0 Crit Value Called To Dr lili alfaro Crit Value Called By Blood Gas Notified Time 1619 Potassium Carbon Dioxide Anion Gap BUN Creatinine Est GFR ( Amer) Est GFR (Non-Af Amer) POC Glucose (mg/dL) Random Glucose Calcium Phosphorus Magnesium Total Bilirubin AST ALT Alkaline Phosphatase Ammonia Total Creatine Kinase Troponin I Total Protein Albumin Globulin Albumin/Globulin Ratio Triglycerides Cholesterol LDL Cholesterol Direct HDL Cholesterol Arterial Blood Potassium Venous Blood Potassium 5.3 H Urine Color Urine Appearance Urine pH Ur Specific Page Urine Protein Urine Glucose (UA) Urine Ketones Urine Blood Urine Nitrate Urine Bilirubin Urine Urobilinogen Ur Leukocyte Esterase Urine RBC Urine WBC Ur Epithelial Cells Amorphous Sediment Influenza Typ A,B (EIA) Blood Type Blood Type Confirm Antibody Screen BBK History Checked 08/11/18 08/11/18 08/11/18 16:10 16:15 16:15 WBC RBC Hgb Hct MCV MCH MCHC RDW Plt Count MPV Neut % (Auto) Lymph % (Auto) [place] % (Auto) Eos % (Auto) Baso % (Auto) Lymph # (Auto) [place] # (Auto) Eos # (Auto) Baso # (Auto) Absolute Neuts (auto) PT INR APTT pCO2 38 pO2 57.0 L HCO3 27.0 ABG pH 7.46 H ABG Total CO2 28.2 H ABG O2 Saturation 94.5 L ABG Base Excess 3.1 H ABG Potassium 4.9 VBG pH VBG pCO2 VBG HCO3 VBG Total CO2 VBG O2 Sat (Calc) VBG Base Excess VBG Potassium Sodium 134 132.0 Chloride 90 L 94.0 L Glucose 158 H Lactate 2.3 H FiO2 32.0 Crit Value Called To Dr gala alfaro Crit Value Called By Blood Gas Notified Time 1624 Potassium 5.4 H Carbon Dioxide 28 Anion Gap 21 H BUN 42 H Creatinine 8.0 H* Est GFR ( Amer) 8 Est GFR (Non-Af Amer) 7 POC Glucose (mg/dL) Random Glucose 157 H Calcium 10.3 Phosphorus Magnesium Total Bilirubin 0.5 AST 24 ALT 21 Alkaline Phosphatase 78 Ammonia Total Creatine Kinase 48 Troponin I 0.03 D Total Protein 8.7 H Albumin 5.2 H Globulin 3.5 Albumin/Globulin Ratio 1.5 Triglycerides 285 H Cholesterol 183 LDL Cholesterol Direct 80 HDL Cholesterol 37 Arterial Blood Potassium 4.9 Venous Blood Potassium Urine Color Yellow Urine Appearance Slight-cloudy Urine pH 7.5 Ur Specific Page 1.020 Urine Protein 100 H Urine Glucose (UA) 100 H Urine Ketones Negative Urine Blood Moderate H Urine Nitrate Negative Urine Bilirubin Negative Urine Urobilinogen 0.2 Ur Leukocyte Esterase Moderate H Urine RBC 20 - 25 H Urine WBC 10 - 15 H Ur Epithelial Cells Many H Amorphous Sediment Small Influenza Typ A,B (EIA) Blood Type Blood Type Confirm Antibody Screen BBK History Checked 08/11/18 08/11/18 08/11/18 16:35 17:06 18:35 WBC RBC Hgb Hct MCV MCH MCHC RDW Plt Count MPV Neut % (Auto) Lymph % (Auto) [place] % (Auto) Eos % (Auto) Baso % (Auto) Lymph # (Auto) [place] # (Auto) Eos # (Auto) Baso # (Auto) Absolute Neuts (auto) PT INR APTT pCO2 pO2 HCO3 ABG pH ABG Total CO2 ABG O2 Saturation ABG Base Excess ABG Potassium VBG pH VBG pCO2 VBG HCO3 VBG Total CO2 VBG O2 Sat (Calc) VBG Base Excess VBG Potassium Sodium Chloride Glucose Lactate FiO2 Crit Value Called To Crit Value Called By Blood Gas Notified Time Potassium Carbon Dioxide Anion Gap BUN Creatinine Est GFR ( Amer) Est GFR (Non-Af Amer) POC Glucose (mg/dL) Random Glucose Calcium Phosphorus Magnesium Total Bilirubin AST ALT Alkaline Phosphatase Ammonia Total Creatine Kinase Troponin I Total Protein Albumin Globulin Albumin/Globulin Ratio Triglycerides Cholesterol LDL Cholesterol Direct HDL Cholesterol Arterial Blood Potassium Venous Blood Potassium Urine Color Urine Appearance Urine pH Ur Specific Page Urine Protein Urine Glucose (UA) Urine Ketones Urine Blood Urine Nitrate Urine Bilirubin Urine Urobilinogen Ur Leukocyte Esterase Urine RBC Urine WBC Ur Epithelial Cells Amorphous Sediment Influenza Typ A,B (EIA) Negative for flu a/b Blood Type O POSITIVE Blood Type Confirm O POSITIVE Antibody Screen Negative BBK History Checked No verified bt 08/11/18 08/11/18 08/11/18 20:21 21:27 21:27 WBC RBC Hgb Hct MCV MCH MCHC RDW Plt Count MPV Neut % (Auto) Lymph % (Auto) [place] % (Auto) Eos % (Auto) Baso % (Auto) Lymph # (Auto) [place] # (Auto) Eos # (Auto) Baso # (Auto) Absolute Neuts (auto) PT INR APTT pCO2 pO2 24 L HCO3 ABG pH ABG Total CO2 ABG O2 Saturation ABG Base Excess ABG Potassium VBG pH 7.41 VBG pCO2 47.0 VBG HCO3 29.8 H VBG Total CO2 31.2 H VBG O2 Sat (Calc) 54.3 VBG Base Excess 4.3 H VBG Potassium 7.0 H* Sodium 132.0 Chloride 94.0 L Glucose 95 Lactate 2.6 H FiO2 21.0 Crit Value Called To Lea hair Crit Value Called By Atc Blood Gas Notified Time 2129 Potassium Carbon Dioxide Anion Gap BUN Creatinine Est GFR ( Amer) Est GFR (Non-Af Amer) POC Glucose (mg/dL) 109 Random Glucose Calcium Phosphorus Magnesium Total Bilirubin AST ALT Alkaline Phosphatase Ammonia 23 Total Creatine Kinase Troponin I Total Protein Albumin Globulin Albumin/Globulin Ratio Triglycerides Cholesterol LDL Cholesterol Direct HDL Cholesterol Arterial Blood Potassium Venous Blood Potassium 7.0 H* Urine Color Urine Appearance Urine pH Ur Specific Page Urine Protein Urine Glucose (UA) Urine Ketones Urine Blood Urine Nitrate Urine Bilirubin Urine Urobilinogen Ur Leukocyte Esterase Urine RBC Urine WBC Ur Epithelial Cells Amorphous Sediment Influenza Typ A,B (EIA) Blood Type Blood Type Confirm Antibody Screen BBK History Checked 08/11/18 08/12/18 08/12/18 21:27 00:30 05:45 WBC 16.8 H D RBC 3.57 Hgb 12.1 L Hct 36.9 L MCV 103.4 MCH 33.9 MCHC 32.8 RDW 14.9 H Plt Count 159 MPV 10.5 Neut % (Auto) Lymph % (Auto) [place] % (Auto) Eos % (Auto) Baso % (Auto) Lymph # (Auto) [place] # (Auto) Eos # (Auto) Baso # (Auto) Absolute Neuts (auto) PT INR APTT pCO2 pO2 81 H HCO3 ABG pH ABG Total CO2 ABG O2 Saturation ABG Base Excess ABG Potassium VBG pH 7.39 VBG pCO2 45.0 VBG HCO3 27.2 VBG Total CO2 28.6 H VBG O2 Sat (Calc) 97.8 H VBG Base Excess 1.7 VBG Potassium 5.9 H Sodium 130.0 L Chloride 94.0 L Glucose 144 H Lactate 2.3 H FiO2 21.0 Crit Value Called To Deanna hill rn 2rno Crit Value Called By [facility] Blood Gas Notified Time 137 Potassium Carbon Dioxide Anion Gap BUN Creatinine Est GFR ( Amer) Est GFR (Non-Af Amer) POC Glucose (mg/dL) Random Glucose Calcium Phosphorus Magnesium Total Bilirubin AST ALT Alkaline Phosphatase Ammonia Total Creatine Kinase Troponin I 0.05 D Total Protein Albumin Globulin Albumin/Globulin Ratio Triglycerides Cholesterol LDL Cholesterol Direct HDL Cholesterol Arterial Blood Potassium Venous Blood Potassium 5.9 H Urine Color Urine Appearance Urine pH Ur Specific Page Urine Protein Urine Glucose (UA) Urine Ketones Urine Blood Urine Nitrate Urine Bilirubin Urine Urobilinogen Ur Leukocyte Esterase Urine RBC Urine WBC Ur Epithelial Cells Amorphous Sediment Influenza Typ A,B (EIA) Blood Type Blood Type Confirm Antibody Screen BBK History Checked 08/12/18 05:45 WBC RBC Hgb Hct MCV MCH MCHC RDW Plt Count MPV Neut % (Auto) Lymph % (Auto) [place] % (Auto) Eos % (Auto) Baso % (Auto) Lymph # (Auto) [place] # (Auto) Eos # (Auto) Baso # (Auto) Absolute Neuts (auto) PT INR APTT pCO2 pO2 HCO3 ABG pH ABG Total CO2 ABG O2 Saturation ABG Base Excess ABG Potassium VBG pH VBG pCO2 VBG HCO3 VBG Total CO2 VBG O2 Sat (Calc) VBG Base Excess VBG Potassium Sodium 136 Chloride 93 L Glucose Lactate FiO2 Crit Value Called To Crit Value Called By Blood Gas Notified Time Potassium 5.5 H Carbon Dioxide 30 Anion Gap 18 BUN 55 H Creatinine 9.5 H* Est GFR ( Amer) 7 Est GFR (Non-Af Amer) 6 POC Glucose (mg/dL) Random Glucose 99 Calcium 9.8 Phosphorus 8.8 H Magnesium 2.5 H Total Bilirubin 0.4 AST 22 ALT 18 Alkaline Phosphatase 57 Ammonia Total Creatine Kinase Troponin I 0.07 D Total Protein 7.1 Albumin 4.2 Globulin 2.9 Albumin/Globulin Ratio 1.4 Triglycerides Cholesterol LDL Cholesterol Direct HDL Cholesterol Arterial Blood Potassium Venous Blood Potassium Urine Color Urine Appearance Urine pH Ur Specific Page Urine Protein Urine Glucose (UA) Urine Ketones Urine Blood Urine Nitrate Urine Bilirubin Urine Urobilinogen Ur Leukocyte Esterase Urine RBC Urine WBC Ur Epithelial Cells Amorphous Sediment Influenza Typ A,B (EIA) Blood Type Blood Type Confirm Antibody Screen BBK History Checked Assessment & Plan (1) Toxic metabolic encephalopathy Assessment and Plan: Likely due to underlying infection. The patient improved with treatment. Continue care per primary team. No further recommendations from a neurological perspective. Exam is non-focal. Thank you for this consultation. Status: Acute
--- NOTE | 2018-08-12 10:21 | CT ---
Date of service: 08/11/2018 PROCEDURE: CT Abdomen and Pelvis without intravenous contrast HISTORY: abdominal pain, evaluate for source of sepsis COMPARISON: None. TECHNIQUE: Without contrast.. Contrast dose: Radiation dose: Total exam DLP = 1172.15 mGy-cm. This CT exam was performed using one or more of the following dose reduction techniques: Automated exposure control, adjustment of the mA and/or kV according to patient size, and/or use of iterative reconstruction technique. FINDINGS: LOWER THORAX: Aortic calcification and coronary artery calcification LIVER: Unremarkable. No gross lesion or ductal dilatation. GALLBLADDER AND BILE DUCTS: Unremarkable. PANCREAS: Unremarkable. No gross lesion or ductal dilatation. SPLEEN: Unremarkable. ADRENALS: Unremarkable. No mass. KIDNEYS AND URETERS: Hypoplastic left kidney. Simple cysts in the right kidney VASCULATURE: Unremarkable. No aortic aneurysm. Extensive aortic calcification. BOWEL: Unremarkable. No obstruction. No gross mural thickening. Mild diverticulosis APPENDIX: Unremarkable. Normal appendix. PERITONEUM: Unremarkable. No free fluid. No free air. LYMPH NODES: Unremarkable. No enlarged lymph nodes. BLADDER: Unremarkable. REPRODUCTIVE: Mildly enlarged prostate with prostatic calcifications BONES: Multilevel disc degeneration OTHER FINDINGS: The report concurs with the preliminary [facility] report IMPRESSION: No acute intra-abdominal findings
[2018-08-12] MEDS ORDERED: Unna Boot TOP ONE ×2 (10:31)
--- NOTE | 2018-08-12 12:18 | CP.PCM.PCO ---
Physician Communication Note - Physician Communication Note Physician Communication Note: sepsis continue antibiotics as per ID, echo, PT eval, arterial study, BC/UC
[2018-08-12] MEDS: Lidocaine 5% Patch TD SCH (12:19)
--- NOTE | 2018-08-12 12:42 | CP.PCM.CON ---
History of Present Illness - History of Present Illness History of Present Illness: MICU Evaluation Indication: AMS / sepsis 67M hypertension, and ESRD on hemodialysis TIA (1985), DM who presented to the ED for weakness and AMS after HD treatment. Found to be febrile 103.5, HR 114. Notably Bp was BP 114/77, RR 18, SaO2 98% RA at bedside says he was lethargic and "wobbly" all day. No fevers prior to todqay, no cough, no diarrhea, no sob. No recent travel or sick contacts. Patient is able to follow my commands however is not verbalizing much. PMHx: Anemia, HTN, ESRD on HD (), CAD (s/p stent placement 2007), TIA (1985), DM PSHx: CABG (2013), Bone spur surgery Meds: see MAR Allergies: contrast oral and IV dye SocialHx: social drinker. Denies smoking. Smoked cigars with recreational drugs in the but quit. Lives at home. FamHx: father has some type of GI cancer (unspecified). Mother has DM. , Past Patient History - Infectious Disease Hx of Infectious Diseases: None - Tetanus Immunizations Tetanus Immunization: Unknown - Past Medical History & Family History Past Medical History?: Yes - Past Social History Smoking Status: Former Smoker - CARDIAC Hx Hypertension: Yes Other/Comment: [place] - PULMONARY Hx Respiratory Disorders: Yes Hx Sleep Apnea: Yes - NEUROLOGICAL Hx Neurological Disorder: Yes Hx Transient Ischemic Attacks (TIA): Yes (1985) - HEENT Hx HEENT Problems: No - RENAL Hx Chronic Kidney Disease: Yes Other/Comment: patient is born with only 1 kidney- right - ENDOCRINE/METABOLIC Hx Endocrine Disorders: No - HEMATOLOGICAL/ONCOLOGICAL Hx Blood Disorders: No - INTEGUMENTARY Hx Dermatological Problems: No - MUSCULOSKELETAL/RHEUMATOLOGICAL Hx Musculoskeletal Disorders: Yes Hx Arthritis: Yes Hx Falls: No - GASTROINTESTINAL Hx Gastrointestinal Disorders: No - GENITOURINARY/GYNECOLOGICAL Hx Genitourinary Disorders: No - PSYCHIATRIC Hx Emotional Abuse: No Hx Physical Abuse: No Hx Substance Use: No - SURGICAL HISTORY Hx Coronary Stent: Yes Other/Comment: Cystoscopy, TURP - ANESTHESIA Hx Anesthesia Reactions: No Hx Malignant Hyperthermia: No Meds Allergies/Adverse Reactions: Allergies Allergy/AdvReac Type Severity Reaction Status Date / Time Iodinated Contrast- Oral and Allergy Severe SHORTNESS Verified 10/04/17 10:48 IV Dye OF BREATH [Iodinated Contrast Media - IV Dye] seafood Allergy Severe ANAPHYLAXIS Uncoded 10/04/17 10:48 - Medications Medications: Current Medications Sodium Chloride (Sodium Chloride 0.9%) 1,000 mls @ 50 mls/hr IV .Q20H CARISA Last Admin: 08/11/18 17:30 Dose: 50 mls/hr Physical Exam - Constitutional Appears: Toxic, Older Than Stated Age - Head Exam Head Exam: ATRAUMATIC, NORMAL INSPECTION, NORMOCEPHALIC - Neck Exam Neck exam: Positive for: Normal Inspection - Respiratory Exam Respiratory Exam: Clear to Auscultation Bilateral, NORMAL BREATHING PATTERN - Cardiovascular Exam Cardiovascular Exam: Tachycardia, REGULAR RHYTHM. absent: JVD - GI/Abdominal Exam GI & Abdominal Exam: Normal Bowel Sounds, Soft. absent: Tenderness - Extremities Exam Additional comments: bl LE cellulites with chronic venous changes Results - Vital Signs Recent Vital Signs: Last Vital Signs Temp 101.3 F H 08/11/18 17:42 Pulse 112 H 08/11/18 17:42 Resp 18 08/11/18 17:42 BP 130/59 L 08/11/18 17:42 Pulse Ox 99 08/11/18 17:42 - Labs Result Diagrams: 08/12/18 05:45 08/12/18 05:45 Labs: Laboratory Results - last 24 hr 08/11/18 08/11/18 08/11/18 16:08 16:10 16:10 WBC 21.4 H D RBC 3.88 Hgb 13.2 L Hct 39.5 L MCV 101.8 MCH 34.0 MCHC 33.4 RDW 15.0 H Plt Count 188 MPV 10.8 Neut % (Auto) 86.6 H Lymph % (Auto) 6.5 L [place] % (Auto) 6.0 Eos % (Auto) 0.8 L Baso % (Auto) 0.1 Lymph # (Auto) 1.4 [place] # (Auto) 1.3 H Eos # (Auto) 0.2 Baso # (Auto) 0.03 Absolute Neuts (auto) 18.56 H PT 12.3 INR 1.11 APTT 34.8 pCO2 pO2 28 L HCO3 ABG pH ABG Total CO2 ABG O2 Saturation ABG Base Excess ABG Potassium VBG pH 7.42 VBG pCO2 46.0 VBG HCO3 29.8 H VBG Total CO2 31.2 H VBG O2 Sat (Calc) 62.9 VBG Base Excess 4.5 H VBG Potassium 5.3 H Sodium 133.0 Chloride 92.0 L Glucose 155 H Lactate 2.8 H FiO2 21.0 Crit Value Called To Dr lili alfaro Crit Value Called By Blood Gas Notified Time 1619 Potassium Carbon Dioxide Anion Gap BUN Creatinine Est GFR ( Amer) Est GFR (Non-Af Amer) Random Glucose Calcium Total Bilirubin AST ALT Alkaline Phosphatase Total Creatine Kinase Troponin I Total Protein Albumin Globulin Albumin/Globulin Ratio Triglycerides Cholesterol LDL Cholesterol Direct HDL Cholesterol Arterial Blood Potassium Venous Blood Potassium 5.3 H Urine Color Urine Appearance Urine pH Ur Specific [place] Urine Protein Urine Glucose (UA) Urine Ketones Urine Blood Urine Nitrate Urine Bilirubin Urine Urobilinogen Ur Leukocyte Esterase Urine RBC Urine WBC Ur Epithelial Cells Amorphous Sediment Blood Type Antibody Screen BBK History Checked 08/11/18 08/11/18 08/11/18 16:10 16:15 16:15 WBC RBC Hgb Hct MCV MCH MCHC RDW Plt Count MPV Neut % (Auto) Lymph % (Auto) [place] % (Auto) Eos % (Auto) Baso % (Auto) Lymph # (Auto) [place] # (Auto) Eos # (Auto) Baso # (Auto) Absolute Neuts (auto) PT INR APTT pCO2 38 pO2 57.0 L HCO3 27.0 ABG pH 7.46 H ABG Total CO2 28.2 H ABG O2 Saturation 94.5 L ABG Base Excess 3.1 H ABG Potassium 4.9 VBG pH VBG pCO2 VBG HCO3 VBG Total CO2 VBG O2 Sat (Calc) VBG Base Excess VBG Potassium Sodium 134 132.0 Chloride 90 L 94.0 L Glucose 158 H Lactate 2.3 H FiO2 32.0 Crit Value Called To Dr gala alfaro Crit Value Called By Blood Gas Notified Time 1624 Potassium 5.4 H Carbon Dioxide 28 Anion Gap 21 H BUN 42 H Creatinine 8.0 H* Est GFR ( Amer) 8 Est GFR (Non-Af Amer) 7 Random Glucose 157 H Calcium 10.3 Total Bilirubin 0.5 AST 24 ALT 21 Alkaline Phosphatase 78 Total Creatine Kinase 48 Troponin I 0.03 D Total Protein 8.7 H Albumin 5.2 H Globulin 3.5 Albumin/Globulin Ratio 1.5 Triglycerides 285 H Cholesterol 183 LDL Cholesterol Direct 80 HDL Cholesterol 37 Arterial Blood Potassium 4.9 Venous Blood Potassium Urine Color Yellow Urine Appearance Slight-cloudy Urine pH 7.5 Ur Specific [place] 1.020 Urine Protein 100 H Urine Glucose (UA) 100 H Urine Ketones Negative Urine Blood Moderate H Urine Nitrate Negative Urine Bilirubin Negative Urine Urobilinogen 0.2 Ur Leukocyte Esterase Moderate H Urine RBC 20 - 25 H Urine WBC 10 - 15 H Ur Epithelial Cells Many H Amorphous Sediment Small Blood Type Antibody Screen BBK History Checked 08/11/18 16:35 WBC RBC Hgb Hct MCV MCH MCHC RDW Plt Count MPV Neut % (Auto) Lymph % (Auto) [place] % (Auto) Eos % (Auto) Baso % (Auto) Lymph # (Auto) [place] # (Auto) Eos # (Auto) Baso # (Auto) Absolute Neuts (auto) PT INR APTT pCO2 pO2 HCO3 ABG pH ABG Total CO2 ABG O2 Saturation ABG Base Excess ABG Potassium VBG pH VBG pCO2 VBG HCO3 VBG Total CO2 VBG O2 Sat (Calc) VBG Base Excess VBG Potassium Sodium Chloride Glucose Lactate FiO2 Crit Value Called To Crit Value Called By Blood Gas Notified Time Potassium Carbon Dioxide Anion Gap BUN Creatinine Est GFR ( Amer) Est GFR (Non-Af Amer) Random Glucose Calcium Total Bilirubin AST ALT Alkaline Phosphatase Total Creatine Kinase Troponin I Total Protein Albumin Globulin Albumin/Globulin Ratio Triglycerides Cholesterol LDL Cholesterol Direct HDL Cholesterol Arterial Blood Potassium Venous Blood Potassium Urine Color Urine Appearance Urine pH Ur Specific [place] Urine Protein Urine Glucose (UA) Urine Ketones Urine Blood Urine Nitrate Urine Bilirubin Urine Urobilinogen Ur Leukocyte Esterase Urine RBC Urine WBC Ur Epithelial Cells Amorphous Sediment Blood Type O POSITIVE Antibody Screen Negative BBK History Checked No verified bt Assessment & Plan - Assessment and Plan (Free Text) Assessment: 67 year old male, with past medical history of anemia, hypertension, and ESRD on hemodialysis presents with AMS Patient is septic based on his fever and leukocytosis possible source include catheter, cellutitis, bacteremia He is hemodynamically stable however tachycardic gently fluid trial given sepsis despite being a dialysis patient not in resp distress at the moment blood gas shows good ventilation and adequate oxygentation upon my interview is a awake however slow and blunted in his responses he does not appear to be in resp distress no agnal breathing he follows my commands when I ask him to raises hands, squeeze my hand he tracks At this point he does not require ICU level care I informed ED doc and hospitalist also suggest: hurst culture empiric abx broad spectrum check for flu eval for possible line infection wound care pal care Please re-call if any changes or concerns Charlene Clark MD MICU Attending
--- NOTE | 2018-08-12 12:55 | CP.PCM.CON ---
<Markos Andre - Last Filed: 08/12/18 14:16> History of Present Illness - History of Present Illness History of Present Illness: Podiatry consult note for Dr. Mcleod, 67 y/o M with PMHx of Anemia, HTN, ESRD on HD (), CAD (s/p stent placement 2007), TIA (1985) presented to the ED for weakness and AMS after HD treatment. Podiatry was consulted for right lower extremity wounds, and bilateral lower extremity erythema. Patient was seen by Dr. Mcleod in the office about 1 week ago for wound care and then patient's dressing was changed by a nurse on Saturday. Patient currently has an UnnaBoot in place to the right lower extremity. Patient denies any pain or pedal complaints. Denies fever, chills, cough, headache, nausea, vomiting, diarrhea, numbness/tingling. Patient reports feeling much better today compare to yesterday upon ED arrival. PMHx: Anemia, HTN, ESRD on HD (), CAD (s/p stent placement 2007), TIA (1985), DM PSHx: CABG (2013), Bone spur surgery Allergies: contrast oral and IV dye SocialHx: social drinker. Denies smoking. Smoked cigars with recreational drugs in the 1980s but quit. Lives at home. FamHx: father has some type of GI cancer (unspecified). Mother has DM. Review of Systems - Review of Systems All systems: reviewed and no additional remarkable complaints except Review of Systems: As per HPI Past Patient History - Infectious Disease Hx of Infectious Diseases: None - Tetanus Immunizations Tetanus Immunization: Unknown - Past Medical History & Family History Past Medical History?: Yes - Past Social History Smoking Status: Former Smoker - CARDIAC Hx Hypertension: Yes Other/Comment: [place] - PULMONARY Hx Respiratory Disorders: Yes Hx Sleep Apnea: Yes - NEUROLOGICAL Hx Neurological Disorder: Yes Hx Transient Ischemic Attacks (TIA): Yes (1985) - HEENT Hx HEENT Problems: No - RENAL Hx Chronic Kidney Disease: Yes Other/Comment: patient is born with only 1 kidney- right - ENDOCRINE/METABOLIC Hx Endocrine Disorders: No - HEMATOLOGICAL/ONCOLOGICAL Hx Blood Disorders: No - INTEGUMENTARY Hx Dermatological Problems: No - MUSCULOSKELETAL/RHEUMATOLOGICAL Hx Musculoskeletal Disorders: Yes Hx Arthritis: Yes Hx Falls: No - GASTROINTESTINAL Hx Gastrointestinal Disorders: No - GENITOURINARY/GYNECOLOGICAL Hx Genitourinary Disorders: No - PSYCHIATRIC Hx Emotional Abuse: No Hx Physical Abuse: No Hx Substance Use: No - SURGICAL HISTORY Hx Coronary Stent: Yes Other/Comment: Cystoscopy, TURP - ANESTHESIA Hx Anesthesia Reactions: No Hx Malignant Hyperthermia: No Meds Allergies/Adverse Reactions: Allergies Allergy/AdvReac Type Severity Reaction Status Date / Time Iodinated Contrast- Oral and Allergy Severe SHORTNESS Verified 10/04/17 10:48 IV Dye OF BREATH [Iodinated Contrast Media - IV Dye] seafood Allergy Severe ANAPHYLAXIS Uncoded 10/04/17 10:48 - Medications Medications: Current Medications Acetaminophen (Tylenol 325mg Tab) 650 mg PO Q6H PRN PRN Reason: Fever >100.4 F Atorvastatin Calcium (Lipitor) 20 mg PO DAILY [facility] Last Admin: 08/12/18 10:25 Dose: 20 mg Betamethasone/Clotrimazole (Lotrisone) 0 gm TOP BID [facility] Calcium Acetate (Phoslo) 1,334 mg PO WM [facility] Last Admin: 08/12/18 12:25 Dose: 1,334 mg Cinacalcet (Sensipar) 30 mg PO DAILY [facility] Last Admin: 08/12/18 10:25 Dose: 30 mg Dextrose (Dextrose 50% Inj) 0 ml IV STAT PRN; Protocol PRN Reason: Hypoglycemia Protocol Gabapentin (Neurontin) 300 mg PO HS PRN; Protocol PRN Reason: Leg cramps Heparin Sodium (Porcine) (Heparin) 5,000 units SC Q8 [facility]; Protocol Last Admin: 08/12/18 05:26 Dose: 5,000 units Dextrose (Dextrose 5% In Water 1000 Ml) 1,000 mls @ 0 mls/hr IV .Q0M PRN; Protocol PRN Reason: Hypoglycemia Protocol Meropenem/Sodium Chloride (Merrem Iv 500 Mg/Ns 50 Ml) 500 mg in 50 mls @ 100 mls/hr IVPB Q24H [facility]; Protocol Last Admin: 08/12/18 00:33 Dose: 100 mls/hr Gentamicin Sulfate 300 mg/ (Sodium Chloride) 107.5 mls @ 100 mls/hr IVPB Q24H [facility]; Protocol Last Admin: 08/12/18 00:33 Dose: 100 mls/hr Insulin Human Lispro (Humalog Med) 0 units SC ACHS [facility]; Protocol Last Admin: 08/12/18 12:12 Dose: Not Given Lidocaine (Lidoderm) 1 ea TD DAILY [facility] Last Admin: 08/12/18 12:19 Dose: 1 ea Tamsulosin HCl (Flomax) 0.4 mg PO DAILY [facility] Last Admin: 08/12/18 10:25 Dose: 0.4 mg Physical Exam - Constitutional Appears: Well, Non-toxic, No Acute Distress - Head Exam Head Exam: ATRAUMATIC, NORMOCEPHALIC - Extremities Exam Additional comments: Bilateral Lower Extremity Exam VASC: DP and PT 2/4 palpable bilaterally, CFT less than 3 seconds, TG warm to warm, increased on the right lower extremity, minimal swelling noted to bialteral lower legs NEURO: grossly intact DERM: superficial wounds noted to the medial aspect of the right leg, 100% granular wound base with 0.1 cm depth, no malodor, no drainage, no tunneling, no tracking, no probe to bone, positive maria de jesus-wound erythema from the ankle to the level of the knee R >L ORTHO: pain on palpation to the right leg at the site of the wounds, MSK 5/5 - Neurological Exam Neurological exam: Alert, Oriented x3 - Psychiatric Exam Psychiatric exam: Normal Affect, Normal Mood Results - Vital Signs Recent Vital Signs: Last Vital Signs Temp 98.0 F 08/12/18 06:00 Pulse 85 08/12/18 06:00 Resp 20 08/12/18 06:00 BP 145/79 08/12/18 06:00 Pulse Ox 100 08/12/18 06:00 - Labs Result Diagrams: 08/12/18 05:45 08/12/18 05:45 Labs: Laboratory Results - last 24 hr 08/11/18 08/11/18 08/11/18 16:08 16:10 16:10 WBC 21.4 H D RBC 3.88 Hgb 13.2 L Hct 39.5 L MCV 101.8 MCH 34.0 MCHC 33.4 RDW 15.0 H Plt Count 188 MPV 10.8 Neut % (Auto) 86.6 H Lymph % (Auto) 6.5 L Sanders % (Auto) 6.0 Eos % (Auto) 0.8 L Baso % (Auto) 0.1 Lymph # (Auto) 1.4 Sanders # (Auto) 1.3 H Eos # (Auto) 0.2 Baso # (Auto) 0.03 Absolute Neuts (auto) 18.56 H PT 12.3 INR 1.11 APTT 34.8 pCO2 pO2 28 L HCO3 ABG pH ABG Total CO2 ABG O2 Saturation ABG Base Excess ABG Potassium VBG pH 7.42 VBG pCO2 46.0 VBG HCO3 29.8 H VBG Total CO2 31.2 H VBG O2 Sat (Calc) 62.9 VBG Base Excess 4.5 H VBG Potassium 5.3 H Sodium 133.0 Chloride 92.0 L Glucose 155 H Lactate 2.8 H FiO2 21.0 Crit Value Called To Dr lili alfaro Crit Value Called By Blood Gas Notified Time 1619 Potassium Carbon Dioxide Anion Gap BUN Creatinine Est GFR ( Amer) Est GFR (Non-Af Amer) POC Glucose (mg/dL) Random Glucose Hemoglobin A1c Calcium Phosphorus Magnesium Total Bilirubin AST ALT Alkaline Phosphatase Ammonia Total Creatine Kinase Troponin I Total Protein Albumin Globulin Albumin/Globulin Ratio Triglycerides Cholesterol LDL Cholesterol Direct HDL Cholesterol Arterial Blood Potassium Venous Blood Potassium 5.3 H Urine Color Urine Appearance Urine pH Ur Specific [place] Urine Protein Urine Glucose (UA) Urine Ketones Urine Blood Urine Nitrate Urine Bilirubin Urine Urobilinogen Ur Leukocyte Esterase Urine RBC Urine WBC Ur Epithelial Cells Amorphous Sediment Influenza Typ A,B (EIA) Blood Type Blood Type Confirm Antibody Screen BBK History Checked 08/11/18 08/11/18 08/11/18 16:10 16:10 16:15 WBC RBC Hgb Hct MCV MCH MCHC RDW Plt Count MPV Neut % (Auto) Lymph % (Auto) Sanders % (Auto) Eos % (Auto) Baso % (Auto) Lymph # (Auto) Sanders # (Auto) Eos # (Auto) Baso # (Auto) Absolute Neuts (auto) PT INR APTT pCO2 38 pO2 57.0 L HCO3 27.0 ABG pH 7.46 H ABG Total CO2 28.2 H ABG O2 Saturation 94.5 L ABG Base Excess 3.1 H ABG Potassium 4.9 VBG pH VBG pCO2 VBG HCO3 VBG Total CO2 VBG O2 Sat (Calc) VBG Base Excess VBG Potassium Sodium 134 132.0 Chloride 90 L 94.0 L Glucose 158 H Lactate 2.3 H FiO2 32.0 Crit Value Called To Dr gala alfaro Crit Value Called By Blood Gas Notified Time 1624 Potassium 5.4 H Carbon Dioxide 28 Anion Gap 21 H BUN 42 H Creatinine 8.0 H* Est GFR ( Amer) 8 Est GFR (Non-Af Amer) 7 POC Glucose (mg/dL) Random Glucose 157 H Hemoglobin A1c 5.6 Calcium 10.3 Phosphorus Magnesium Total Bilirubin 0.5 AST 24 ALT 21 Alkaline Phosphatase 78 Ammonia Total Creatine Kinase 48 Troponin I 0.03 D Total Protein 8.7 H Albumin 5.2 H Globulin 3.5 Albumin/Globulin Ratio 1.5 Triglycerides 285 H Cholesterol 183 LDL Cholesterol Direct 80 HDL Cholesterol 37 Arterial Blood Potassium 4.9 Venous Blood Potassium Urine Color Urine Appearance Urine pH Ur Specific [place] Urine Protein Urine Glucose (UA) Urine Ketones Urine Blood Urine Nitrate Urine Bilirubin Urine Urobilinogen Ur Leukocyte Esterase Urine RBC Urine WBC Ur Epithelial Cells Amorphous Sediment Influenza Typ A,B (EIA) Blood Type Blood Type Confirm Antibody Screen BBK History Checked 08/11/18 08/11/18 08/11/18 16:15 16:35 17:06 WBC RBC Hgb Hct MCV MCH MCHC RDW Plt Count MPV Neut % (Auto) Lymph % (Auto) Sanders % (Auto) Eos % (Auto) Baso % (Auto) Lymph # (Auto) Sanders # (Auto) Eos # (Auto) Baso # (Auto) Absolute Neuts (auto) PT INR APTT pCO2 pO2 HCO3 ABG pH ABG Total CO2 ABG O2 Saturation ABG Base Excess ABG Potassium VBG pH VBG pCO2 VBG HCO3 VBG Total CO2 VBG O2 Sat (Calc) VBG Base Excess VBG Potassium Sodium Chloride Glucose Lactate FiO2 Crit Value Called To Crit Value Called By Blood Gas Notified Time Potassium Carbon Dioxide Anion Gap BUN Creatinine Est GFR ( Amer) Est GFR (Non-Af Amer) POC Glucose (mg/dL) Random Glucose Hemoglobin A1c Calcium Phosphorus Magnesium Total Bilirubin AST ALT Alkaline Phosphatase Ammonia Total Creatine Kinase Troponin I Total Protein Albumin Globulin Albumin/Globulin Ratio Triglycerides Cholesterol LDL Cholesterol Direct HDL Cholesterol Arterial Blood Potassium Venous Blood Potassium Urine Color Yellow Urine Appearance Slight-cloudy Urine pH 7.5 Ur Specific [place] 1.020 Urine Protein 100 H Urine Glucose (UA) 100 H Urine Ketones Negative Urine Blood Moderate H Urine Nitrate Negative Urine Bilirubin Negative Urine Urobilinogen 0.2 Ur Leukocyte Esterase Moderate H Urine RBC 20 - 25 H Urine WBC 10 - 15 H Ur Epithelial Cells Many H Amorphous Sediment Small Influenza Typ A,B (EIA) Blood Type O POSITIVE Blood Type Confirm O POSITIVE Antibody Screen Negative BBK History Checked No verified bt 08/11/18 08/11/18 08/11/18 18:35 20:21 21:27 WBC RBC Hgb Hct MCV MCH MCHC RDW Plt Count MPV Neut % (Auto) Lymph % (Auto) Sanders % (Auto) Eos % (Auto) Baso % (Auto) Lymph # (Auto) Sanders # (Auto) Eos # (Auto) Baso # (Auto) Absolute Neuts (auto) PT INR APTT pCO2 pO2 HCO3 ABG pH ABG Total CO2 ABG O2 Saturation ABG Base Excess ABG Potassium VBG pH VBG pCO2 VBG HCO3 VBG Total CO2 VBG O2 Sat (Calc) VBG Base Excess VBG Potassium Sodium Chloride Glucose Lactate FiO2 Crit Value Called To Crit Value Called By Blood Gas Notified Time Potassium Carbon Dioxide Anion Gap BUN Creatinine Est GFR ( Amer) Est GFR (Non-Af Amer) POC Glucose (mg/dL) 109 Random Glucose Hemoglobin A1c Calcium Phosphorus Magnesium Total Bilirubin AST ALT Alkaline Phosphatase Ammonia 23 Total Creatine Kinase Troponin I Total Protein Albumin Globulin Albumin/Globulin Ratio Triglycerides Cholesterol LDL Cholesterol Direct HDL Cholesterol Arterial Blood Potassium Venous Blood Potassium Urine Color Urine Appearance Urine pH Ur Specific [place] Urine Protein Urine Glucose (UA) Urine Ketones Urine Blood Urine Nitrate Urine Bilirubin Urine Urobilinogen Ur Leukocyte Esterase Urine RBC Urine WBC Ur Epithelial Cells Amorphous Sediment Influenza Typ A,B (EIA) Negative for flu a/b Blood Type Blood Type Confirm Antibody Screen BBK History Checked 08/11/18 08/11/18 08/12/18 21:27 21:27 00:30 WBC RBC Hgb Hct MCV MCH MCHC RDW Plt Count MPV Neut % (Auto) Lymph % (Auto) Sanders % (Auto) Eos % (Auto) Baso % (Auto) Lymph # (Auto) Sanders # (Auto) Eos # (Auto) Baso # (Auto) Absolute Neuts (auto) PT INR APTT pCO2 pO2 24 L 81 H HCO3 ABG pH ABG Total CO2 ABG O2 Saturation ABG Base Excess ABG Potassium VBG pH 7.41 7.39 VBG pCO2 47.0 45.0 VBG HCO3 29.8 H 27.2 VBG Total CO2 31.2 H 28.6 H VBG O2 Sat (Calc) 54.3 97.8 H VBG Base Excess 4.3 H 1.7 VBG Potassium 7.0 H* 5.9 H Sodium 132.0 130.0 L Chloride 94.0 L 94.0 L Glucose 95 144 H Lactate 2.6 H 2.3 H FiO2 21.0 21.0 Crit Value Called To Lea hill rn 2rno Crit Value Called By [facility] Blood Gas Notified Time 2129 137 Potassium Carbon Dioxide Anion Gap BUN Creatinine Est GFR ( Amer) Est GFR (Non-Af Amer) POC Glucose (mg/dL) Random Glucose Hemoglobin A1c Calcium Phosphorus Magnesium Total Bilirubin AST ALT Alkaline Phosphatase Ammonia Total Creatine Kinase Troponin I 0.05 D Total Protein Albumin Globulin Albumin/Globulin Ratio Triglycerides Cholesterol LDL Cholesterol Direct HDL Cholesterol Arterial Blood Potassium Venous Blood Potassium 7.0 H* 5.9 H Urine Color Urine Appearance Urine pH Ur Specific [place] Urine Protein Urine Glucose (UA) Urine Ketones Urine Blood Urine Nitrate Urine Bilirubin Urine Urobilinogen Ur Leukocyte Esterase Urine RBC Urine WBC Ur Epithelial Cells Amorphous Sediment Influenza Typ A,B (EIA) Blood Type Blood Type Confirm Antibody Screen BBK History Checked 08/12/18 08/12/18 05:45 05:45 WBC 16.8 H D RBC 3.57 Hgb 12.1 L Hct 36.9 L MCV 103.4 MCH 33.9 MCHC 32.8 RDW 14.9 H Plt Count 159 MPV 10.5 Neut % (Auto) Lymph % (Auto) Sanders % (Auto) Eos % (Auto) Baso % (Auto) Lymph # (Auto) Sanders # (Auto) Eos # (Auto) Baso # (Auto) Absolute Neuts (auto) PT INR APTT pCO2 pO2 HCO3 ABG pH ABG Total CO2 ABG O2 Saturation ABG Base Excess ABG Potassium VBG pH VBG pCO2 VBG HCO3 VBG Total CO2 VBG O2 Sat (Calc) VBG Base Excess VBG Potassium Sodium 136 Chloride 93 L Glucose Lactate FiO2 Crit Value Called To Crit Value Called By Blood Gas Notified Time Potassium 5.5 H Carbon Dioxide 30 Anion Gap 18 BUN 55 H Creatinine 9.5 H* Est GFR ( Amer) 7 Est GFR (Non-Af Amer) 6 POC Glucose (mg/dL) Random Glucose 99 Hemoglobin A1c Calcium 9.8 Phosphorus 8.8 H Magnesium 2.5 H Total Bilirubin 0.4 AST 22 ALT 18 Alkaline Phosphatase 57 Ammonia Total Creatine Kinase Troponin I 0.07 D Total Protein 7.1 Albumin 4.2 Globulin 2.9 Albumin/Globulin Ratio 1.4 Triglycerides Cholesterol LDL Cholesterol Direct HDL Cholesterol Arterial Blood Potassium Venous Blood Potassium Urine Color Urine Appearance Urine pH Ur Specific [place] Urine Protein Urine Glucose (UA) Urine Ketones Urine Blood Urine Nitrate Urine Bilirubin Urine Urobilinogen Ur Leukocyte Esterase Urine RBC Urine WBC Ur Epithelial Cells Amorphous Sediment Influenza Typ A,B (EIA) Blood Type Blood Type Confirm Antibody Screen BBK History Checked Assessment & Plan - Assessment and Plan (Free Text) Assessment: 67 y/o male seen and evaluated for bilateral LE erythema, and wound to the RLE Plan: Patient was seen and evaluated with Dr. Mcleod Plan was discussed Chart, labs and vitals were reviewed- afebrile at this time, positive leukocytosis at 16.8 Patient wound cleaned with saline and dressed with maxorb, DSD Unnaboots and Coban ordered for applied to the RLE tomorrow LE US: negative for DVT Ordered Lotrisone for B/L LE Ordered BELLE/PVR to assess vascular flow: normal resting BELLE, mild tibial disease Infectious disease on board, continue IV Abx Podiatry will continue to follow patient while in house Thank you for the Podiatry consult - Date & Time Date: 08/12/18 Time: 14:47 <Andres Mcleod - Last Filed: 08/13/18 10:16> Meds - Medications Medications: Current Medications Acetaminophen (Tylenol 325mg Tab) 650 mg PO Q6H PRN PRN Reason: Fever >100.4 F Last Admin: 08/13/18 08:57 Dose: 650 mg Atorvastatin Calcium (Lipitor) 20 mg PO DAILY [facility] Last Admin: 08/12/18 10:25 Dose: 20 mg Betamethasone/Clotrimazole (Lotrisone) 0 gm TOP BID [facility] Last Admin: 08/12/18 17:24 Dose: 1 applic Calcium Acetate (Phoslo) 1,334 mg PO WM [facility] Last Admin: 08/13/18 07:51 Dose: 1,334 mg Cinacalcet (Sensipar) 30 mg PO DAILY [facility] Last Admin: 08/12/18 10:25 Dose: 30 mg Dextrose (Dextrose 50% Inj) 0 ml IV STAT PRN; Protocol PRN Reason: Hypoglycemia Protocol Gabapentin (Neurontin) 300 mg PO BID PRN; Protocol PRN Reason: Leg cramps Last Admin: 08/12/18 22:18 Dose: 300 mg Heparin Sodium (Porcine) (Heparin) 5,000 units SC Q8 [facility]; Protocol Last Admin: 08/13/18 05:22 Dose: 5,000 units Dextrose (Dextrose 5% In Water 1000 Ml) 1,000 mls @ 0 mls/hr IV .Q0M PRN; Protocol PRN Reason: Hypoglycemia Protocol Meropenem/Sodium Chloride (Merrem Iv 500 Mg/Ns 50 Ml) 500 mg in 50 mls @ 100 mls/hr IVPB Q24H [facility]; Protocol Last Admin: 08/12/18 22:00 Dose: 100 mls/hr Insulin Human Lispro (Humalog Med) 0 units SC ACHS [facility]; Protocol Last Admin: 08/13/18 07:41 Dose: Not Given Lidocaine (Lidoderm) 1 ea TD DAILY [facility] Last Admin: 08/12/18 12:19 Dose: 1 ea Tamsulosin HCl (Flomax) 0.4 mg PO DAILY [facility] Last Admin: 08/12/18 10:25 Dose: 0.4 mg Results - Vital Signs Recent Vital Signs: Last Vital Signs Temp 97.2 F L 08/13/18 06:00 Pulse 79 08/13/18 06:00 Resp 18 08/13/18 06:00 BP 110/72 08/13/18 06:00 Pulse Ox 95 08/13/18 06:00 - Labs Result Diagrams: 08/13/18 05:30 08/13/18 05:30 Labs: Laboratory Results - last 24 hr 08/11/18 08/11/18 08/13/18 16:10 21:27 05:30 WBC 14.0 H RBC 3.64 Hgb 12.2 L Hct 37.1 L MCV 101.9 MCH 33.5 MCHC 32.9 RDW 14.8 H Plt Count 194 MPV 10.9 Sodium Potassium Chloride Carbon Dioxide Anion Gap BUN Creatinine Est GFR ( Amer) Est GFR (Non-Af Amer) Random Glucose Hemoglobin A1c 5.6 Calcium Phosphorus Magnesium Total Bilirubin AST ALT Alkaline Phosphatase Total Protein Albumin Globulin Albumin/Globulin Ratio Procalcitonin 1.58 H 08/13/18 05:30 WBC RBC Hgb Hct MCV MCH MCHC RDW Plt Count MPV Sodium 135 Potassium 5.9 H* Chloride 92 L Carbon Dioxide 28 Anion Gap 22 H BUN 75 H Creatinine 12.4 H* D Est GFR ( Amer) 5 Est GFR (Non-Af Amer) 4 Random Glucose 94 Hemoglobin A1c Calcium 10.2 Phosphorus 11.2 H Magnesium 2.7 H Total Bilirubin 0.4 AST 22 ALT 12 Alkaline Phosphatase 65 Total Protein 7.8 Albumin 4.5 Globulin 3.3 Albumin/Globulin Ratio 1.4 Procalcitonin Attending/Attestation - Attestation I have personally seen and examined this patient.: Yes I have fully participated in the care of the patient.: Yes I have reviewed all pertinent clinical information: Yes
--- NOTE | 2018-08-12 13:07 | US ---
PROCEDURE: Lower extremity BELLE exam HISTORY: Peripheral vascular disease with pain and ulceration. Diabetes. Previous smoker. PHYSICIAN(S): King Rodas MD. FINDINGS: The resting BELLE's are normal: right, 1.39and left, 1.25. The exam is somewhat limited by calcified vessels. The high thigh pressures and waveforms are relatively normal. The calf PVR waveforms are normal and symmetric and augment normally The ankle PVR waveforms are symmetric and relatively normal. The metatarsal waveforms are blunted IMPRESSION: 1. Normal resting ABIs. 2. Possible mild symmetric tibial disease
--- NOTE | 2018-08-12 16:43 | CP.PCM.PN ---
Subjective - Date & Time of Evaluation Date of Evaluation: 08/12/18 Time of Evaluation: 15:00 - Subjective Subjective: Infectious Disease Follow Up: August 12, 2018 67 yo male well known to me from multiple previous hospitalizations at [facility] in the past year. PMHx includes Anemia, HTN, ESRD on HD ([facility]), CAD (s/p s tent placement 2007), TIA (1985), DM. The patient presented to the ED for weakness and AMS after HD treatment. Dialysis center called EMS. In ER he was found to be febrile to 103.5 F. He was AAO x 1. Normally the patient is mostly AAO x 3 but has had periods of confusion in my experience before (This was during the time the patient was on Peritoneal Dialysis). A similar episodes occurred last year where he was admitted to [facility] and this was also when he was converted from PD to HD. Patient is currently awake and is able to remember me. is also at bedside. Sick contacts of 4 year old grandchildren with colds recently. Fevers up to 103.5 F. Given my previous experiences with this patient on prior hospitalizations, I would start antibiotic coverage aggressively. Afebrile so far today. The patient appears more awake and alert. Urinalysis appears to indicate that UTI is the most likely culprit. Objective - Vital Signs/Intake and Output Vital Signs (last 24 hours): Temp Pulse Resp BP Pulse Ox 98.0 F 85 20 145/79 100 08/12/18 06:00 08/12/18 06:00 08/12/18 06:00 08/12/18 06:00 08/12/18 06:00 Intake and Output: 08/12/18 08/12/18 06:59 18:59 Intake Total 360 Output Total 0 Balance 360 - Medications Medications: Current Medications Acetaminophen (Tylenol 325mg Tab) 650 mg PO Q6H PRN PRN Reason: Fever >100.4 F Last Admin: 08/12/18 14:28 Dose: 650 mg Atorvastatin Calcium (Lipitor) 20 mg PO DAILY [facility] Last Admin: 08/12/18 10:25 Dose: 20 mg Betamethasone/Clotrimazole (Lotrisone) 0 gm TOP BID [facility] Calcium Acetate (Phoslo) 1,334 mg PO WM [facility] Last Admin: 08/12/18 12:25 Dose: 1,334 mg Cinacalcet (Sensipar) 30 mg PO DAILY [facility] Last Admin: 08/12/18 10:25 Dose: 30 mg Dextrose (Dextrose 50% Inj) 0 ml IV STAT PRN; Protocol PRN Reason: Hypoglycemia Protocol Gabapentin (Neurontin) 300 mg PO BID PRN; Protocol PRN Reason: Leg cramps Heparin Sodium (Porcine) (Heparin) 5,000 units SC Q8 [facility]; Protocol Last Admin: 08/12/18 14:28 Dose: 5,000 units Dextrose (Dextrose 5% In Water 1000 Ml) 1,000 mls @ 0 mls/hr IV .Q0M PRN; Protocol PRN Reason: Hypoglycemia Protocol Meropenem/Sodium Chloride (Merrem Iv 500 Mg/Ns 50 Ml) 500 mg in 50 mls @ 100 mls/hr IVPB Q24H [facility]; Protocol Last Admin: 08/12/18 00:33 Dose: 100 mls/hr Insulin Human Lispro (Humalog Med) 0 units SC ACHS [facility]; Protocol Last Admin: 08/12/18 12:12 Dose: Not Given Lidocaine (Lidoderm) 1 ea TD DAILY [facility] Last Admin: 08/12/18 12:19 Dose: 1 ea Tamsulosin HCl (Flomax) 0.4 mg PO DAILY [facility] Last Admin: 08/12/18 10:25 Dose: 0.4 mg - Labs Labs: 08/12/18 05:45 08/12/18 05:45 PT 12.3 SECONDS (9.4-12.5) 08/11/18 16:10 INR 1.11 08/11/18 16:10 APTT 34.8 Seconds (26.9-38.3) 08/11/18 16:10 - Constitutional Appears: Non-toxic, No Acute Distress, Chronically Ill - Head Exam Head Exam: ATRAUMATIC, NORMOCEPHALIC - Eye Exam Eye Exam: EOMI, PERRL Pupil Exam: NORMAL ACCOMODATION, PERRL - ENT Exam ENT Exam: Mucous Membranes Moist, Normal External Ear Exam, TM's Normal Bilaterally - Neck Exam Neck Exam: Full ROM, Normal Inspection - Respiratory Exam Respiratory Exam: Clear to Ausculation Bilateral, NORMAL BREATHING PATTERN. absent: Rales, Rhonchi, Wheezes - Cardiovascular Exam Cardiovascular Exam: REGULAR RHYTHM, RRR, +S1, +S2 - GI/Abdominal Exam GI & Abdominal Exam: Distended, Soft, Normal Bowel Sounds. absent: Tenderness Additional comments: healed scar from CABG. Right chest wall Permacath. - Extremities Exam Extremities Exam: Full ROM, Pedal Edema Additional comments: right leg ulcerations currently wrapped in bandages, chronic venous stasis on both lower extremities. - Neurological Exam Neurological Exam: Alert, Awake, CN II-XII Intact, Oriented x3 - Psychiatric Exam Psychiatric exam: Normal Affect, Normal Mood - Skin Skin Exam: Intact, Normal Color Assessment and Plan - Assessment and Plan (Free Text) Assessment: 67 yo male well known to me on previous hospitalization to [facility]. The patient with generalized weakness, fevers up to 103.5 F, and leukocytosis up to 21. Lactic acid of 2.8. Procalcitonin pending. Patient is a relatively recent convert to HD within the past year. 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 Would obtain cultures of the blood, urine (if present), and of the right leg ulcerations. Would start aggressively on antibiotic coverage with Meropenem instead of Zosyn and give Vancomycin after HD sessions. Monitor glucose levels. Would give dose of aminoglycosideat this time as well. Head CT showed no acute changes Chest X-ray showing no acute cardiopulmonary changes. Extremity ultrasound showed no DVT on the left leg but right leg was a limited study but no visualized DVT. Abd/Pel CT pending. Given urinalysis, UTI appears to be the most likely culprit. Awaiting urine cultures. Blood cultures negative at 24 hours. Thank you for allowing me to participate in the care of this patient, we will follow with you.
[2018-08-12] MEDS: Clotrimazole/Betamethasone Cream(15 gm) TOP SCH (17:24)
--- NOTE | 2018-08-12 18:49 | CON ---
DATE OF CONSULTATION: 08/12/2018 The patient is admitted for Dr. Kassie Reyes. REQUESTING PHYSICIAN: Dr. Reyes. REASON FOR CONSULTATION: To provide dialysis services for a patient known to me, who presents with fevers and an altered mental status. HISTORY OF PRESENT ILLNESS: The patient is a pleasant 67-year-old white male with a history of end-stage renal disease, on chronic maintenance hemodialysis at [facility] in [place]. His last dialysis was yesterday. The patient initially was on peritoneal dialysis, but he was not successful in doing peritoneal dialysis. He was unable to properly ultrafiltrate. The patient has done remarkably well on hemodialysis. He has an AV fistula in his right upper extremity, which has been cannulated with one needle. He is still dialyzing with the help of a PermCath in the right chest wall. The patient had his routine dialysis yesterday. Post dialysis he presented to the emergency room with fevers and an altered mental status. His white blood cell count was initially 21.4. His temperature was 103.5. The patient was promptly admitted to the hospital, pancultured and started on antibiotic therapy. He had imaging studies, which for the most part were unremarkable. This morning he is back to baseline. His mental status is back to baseline. He is afebrile. All cultures to date are so far negative. The patient is due for his routine dialysis tomorrow. He is noted to have mild hyperkalemia with a potassium of 5.5. We will not do dialysis today, and if necessary, the patient may receive a dose of Kayexalate to keep his potassium level in the mid 5 range. PAST MEDICAL HISTORY: Significant for end-stage renal disease on chronic maintenance hemodialysis, history of diabetes, history of hypertension with LVH, ejection fraction of 63% with mild tricuspid regurgitation and mild pulmonary hypertension. History of peripheral vascular disease, multiple lower extremity. History of ASHD, status post PTCA stent in 2007, status post CABG in 2013. Past history of TIA. History of an atrophic left kidney. History of secondary hyperparathyroidism and anemia. MEDICATIONS: Medications at home include that of Flomax, Januvia, Neurontin, Sensipar, vitamin D, PhosLo and Lipitor. ALLERGIES: THE PATIENT IS ALLERGIC TO CONTRAST ORAL AND IV DYE AND SEAFOOD. Current medications in the hospital include that of Flomax, one dose of gentamicin 300 mg, subcu heparin, sliding scale insulin, Lidoderm, Lipitor, Lotrisone, meropenem, Neurontin, PhosLo, Sensipar, and Tylenol p.r.n. SOCIAL HISTORY: Past history of tobacco use. The patient was a pipe smoker. He quit 22 years ago. No history of alcohol use. The patient has a supportive family and lives with his . FAMILY HISTORY: Reviewed and unchanged from past encounter. REVIEW OF SYSTEMS: GENERAL: The patient states the appetite and weight have been stable. ENT: Denies any hearing or visual problems. PULMONARY: No history of COPD, shortness of breath. No history of recent pneumonias. No history of asthma, bronchitis, or emphysema. CARDIAC: History of ASHD, but no active complaints. GI: No nausea or vomiting. No diarrhea, no constipation, no abdominal pain. : History of end-stage renal disease as noted above. No history of urinary tract infection. ENDOCRINE: Positive for diabetes mellitus on oral agents, history of secondary hyperparathyroidism. MUSCULOSKELETAL: No complaints. NEURO: Past history of TIA. No history of seizures. No history of syncope. No history of CVA. HEM/ONC: History of anemia secondary to chronic kidney disease. PSYCHIATRIC: History is negative. PHYSICAL EXAMINATION: GENERAL: The patient is currently seen sitting up in a chair in telemetry. He is completely back to baseline in terms of his mental status. He is currently afebrile. VITAL SIGNS: Blood pressure currently 145/79, pulse of 85 and regular, respiratory rate is 20, pulse ox is 100%. HEENT: Exam shows him to be normocephalic, atraumatic. Conjunctivae are pink. Sclerae are nonicteric. Pupils equal and reactive to light accommodation. Extraocular muscles are intact. NECK: Supple. No neck vein distention or thyromegaly. No lymphadenopathy. No bruits. CHEST: Clear to auscultation and percussion with no rales, rhonchi or wheezing. CARDIOVASCULAR: Shows a normal S1, S2, soft systolic murmur at the left lower sternal border consistent with tricuspid regurgitation, no S3, no S4, no rub. ABDOMEN: Soft. Moderate obesity. Bowel sounds normal. No rebound, guarding or masses. BACK: No CVAT. No spinal tenderness. EXTREMITIES: Show a working AV fistula, right upper extremity. No erythema. No tenderness. Positive PermCath, right chest wall. No drainage. No evidence for exit site infection. Lower extremity, right lower leg is wrapped. No appreciable edema. By report, he does have a healing wound of the right lower extremity with minimal drainage. As per the podiatry note, wound looks acceptable, and no evidence for gross infection. Diminished lower extremity pulses bilaterally. NEURO: Shows him to be alert, oriented x3 with no gross focal motor or sensory deficits noted. LABORATORY DATA AND IMAGING STUDIES: Admitting chest x-ray, no acute pulmonary disease. Admitting abdominal and pelvic CT scan shows no acute findings. He does have a hypoplastic left kidney. Doppler study of lower extremity shows no DVT and head CT scan shows no acute findings. Labs, CBC, white blood cell count 21.4 on admission, 16.8 today. Hemoglobin dropped from 13.2 to 12.1, platelet count is 159,000. Coags are normal. Blood gas today pH 7.39, pCO2 of 45, bicarbonate 27, pO2 is 81. Lactate level was down to 2.3 from a high of 2.8. Chemistries, potassium 5.5 today. Remainder of the electrolytes are acceptable. BUN 55 with a creatinine of 9.5. Phosphorus is 8.8 with a calcium of 9.8. Magnesium level is 2.5. Ammonia level is normal at 23. Troponins are negative. Albumin is 4.2. Urine showed white cells and red cells. Urine cultures are pending. Influenza serologies were negative. Microbiology, the right leg wound is positive in the past for Klebsiella, E-coli and Corynebacterium. Repeat cultures are pending. ASSESSMENT: 1. Status post altered mental status with fevers. Source of infection not entirely clear. The patient remains on empiric antibiotic therapy. No evidence for AV fistula infection, unlikely that he has a PermCath infection. He does have chronic inflammation of the wound of the right lower leg with ulceration with mild non-purulent discharge as per Podiatry note. This is improved, and the patient follows closely with Podiatry in the outpatient setting. The patient will remain on empiric antibiotic therapy pending cultures. If blood cultures are positive, the patient can have a repeat echocardiogram to rule out a vegetation in light of the fact that he has a PermCath in place. 2. End-stage renal disease. The patient will continue Saturday, Saturday and Saturday dialysis. 3. Mild hyperkalemia. The patient will adhere to all dietary restrictions. I do not want to dialyze him today. If necessary, the patient may receive one dose of Kayexalate to keep his potassium in the mid 5 range. 4. History of diabetes mellitus. The patient will continue to have his glucose monitored. He may continue on sliding scale insulin. He had been on Januvia in the outpatient setting. 5. Arteriosclerotic heart disease, status post percutaneous transluminal coronary angioplasty stent, status post coronary artery bypass graft, all stable. 6. History of transient ischemic attack. 7. Hypoplastic left kidney dating back to . 8. History of tricuspid regurgitation with mild pulmonary hypertension with an ejection fraction of 63% back in 2018. 9. History of secondary hyperparathyroidism. Elevated phosphorus level. The patient will continue binder therapy and adhere to all dietary restrictions. 10. History of mild anemia. The patient's current hemoglobin is 12.1, which is acceptable. Aranesp has been given on an as-needed basis pending a drop in his hemoglobin level. 11. Positive pyuria. Positive hematuria. Urine cultures are pending. PLAN: 1. Await culture results. 2. Continue empiric antibiotic therapy. 3. The patient should adhere to all dietary restrictions including a low potassium diet. 4. Okay from renal standpoint to receive one dose of Kayexalate today. 5. Hemodialysis orders placed into the EMR. 6. Continue to monitor the patient on telemetry. 7. Continue local wound care with Dr. Vu and Dr. Chen for his right lower extremity leg wound in the setting of longstanding stasis dermatitis. Thank you for letting me partake and share in the care of our mutual patient. Lobito Garcia MD
[2018-08-13 06:21] LABS: HEMOGLOBIN 12.2 g/dL (14.0-18.0); MEAN CELL VOLUME 101.9 fl (80.0-105.0); MEAN CORPUSCULAR HEMOGLOBIN 33.5 pg (25.0-35.0); MEAN CORPUSCULAR HGB CONC 32.9 g/dl (31.0-37.0); MEAN PLATELET VOLUME 10.9 fl (7.0-11.0); RBC 3.64 10^6/uL (3.5-6.1); RED CELL DISTRIBUTION WIDTH 14.8 % (11.5-14.5)
[2018-08-13] MEDS: Insulin Lispro (humaLOG) MEDIUM Coverage SC SCH ×3 (07:41→16:35)
[2018-08-13 07:46] LABS: ALB/GLOB RATIO 1.4 (1.1-1.8); ALBUMIN 4.5 g/dL (3.0-4.8); CALCIUM 10.2 mg/dL (8.4-10.5)
--- NOTE | 2018-08-13 08:33 | CP.PCM.PN ---
<Kvng Johnson - Last Filed: 08/13/18 12:50> Subjective - Date & Time of Evaluation Date of Evaluation: 08/13/18 Time of Evaluation: 08:00 - Subjective Subjective: Kvng Johnson PGY1 Medicine Progress Note for Dr. Reyes Patient was seen and examined at bedside this morning. Vital signs are stable. No adverse overnight events. Patient denies cp, sob, n/v/d, fever, chills. He is at baseline mental status. Explained that he is going for dialysis today. A full 12 point ROS was conducted and unremarkable except as stated above. Objective - Vital Signs/Intake and Output Vital Signs (last 24 hours): Temp Pulse Resp BP Pulse Ox 97.2 F L 79 18 110/72 95 08/13/18 06:00 08/13/18 06:00 08/13/18 06:00 08/13/18 06:00 08/13/18 06:00 Intake and Output: 08/13/18 08/13/18 06:59 18:59 Intake Total 720 Balance 720 - Medications Medications: Current Medications Acetaminophen (Tylenol 325mg Tab) 650 mg PO Q6H PRN PRN Reason: Fever >100.4 F Last Admin: 08/12/18 14:28 Dose: 650 mg Atorvastatin Calcium (Lipitor) 20 mg PO DAILY [facility] Last Admin: 08/12/18 10:25 Dose: 20 mg Betamethasone/Clotrimazole (Lotrisone) 0 gm TOP BID [facility] Last Admin: 08/12/18 17:24 Dose: 1 applic Calcium Acetate (Phoslo) 1,334 mg PO WM [facility] Last Admin: 08/13/18 07:51 Dose: 1,334 mg Cinacalcet (Sensipar) 30 mg PO DAILY [facility] Last Admin: 08/12/18 10:25 Dose: 30 mg Dextrose (Dextrose 50% Inj) 0 ml IV STAT PRN; Protocol PRN Reason: Hypoglycemia Protocol Gabapentin (Neurontin) 300 mg PO BID PRN; Protocol PRN Reason: Leg cramps Last Admin: 08/12/18 22:18 Dose: 300 mg Heparin Sodium (Porcine) (Heparin) 5,000 units SC Q8 [facility]; Protocol Last Admin: 08/13/18 05:22 Dose: 5,000 units Dextrose (Dextrose 5% In Water 1000 Ml) 1,000 mls @ 0 mls/hr IV .Q0M PRN; Protocol PRN Reason: Hypoglycemia Protocol Meropenem/Sodium Chloride (Merrem Iv 500 Mg/Ns 50 Ml) 500 mg in 50 mls @ 100 mls/hr IVPB Q24H [facility]; Protocol Last Admin: 08/12/18 22:00 Dose: 100 mls/hr Insulin Human Lispro (Humalog Med) 0 units SC ACHS [facility]; Protocol Last Admin: 08/13/18 07:41 Dose: Not Given Lidocaine (Lidoderm) 1 ea TD DAILY [facility] Last Admin: 08/12/18 12:19 Dose: 1 ea Tamsulosin HCl (Flomax) 0.4 mg PO DAILY [facility] Last Admin: 08/12/18 10:25 Dose: 0.4 mg - Labs Labs: 08/13/18 05:30 08/13/18 05:30 PT 12.3 SECONDS (9.4-12.5) 08/11/18 16:10 INR 1.11 08/11/18 16:10 APTT 34.8 Seconds (26.9-38.3) 08/11/18 16:10 - Constitutional Appears: No Acute Distress - Head Exam Head Exam: ATRAUMATIC, NORMAL INSPECTION, NORMOCEPHALIC - Eye Exam Eye Exam: EOMI, Normal appearance - ENT Exam ENT Exam: Mucous Membranes Moist - Respiratory Exam Respiratory Exam: Clear to Ausculation Bilateral, NORMAL BREATHING PATTERN. absent: Accessory Muscle Use, Chest Wall Tenderness, Rales, Rhonchi, Wheezes - Cardiovascular Exam Cardiovascular Exam: RRR, +S1, +S2 - GI/Abdominal Exam GI & Abdominal Exam: Soft, Normal Bowel Sounds. absent: Tenderness - Extremities Exam Extremities Exam: Full ROM, Normal Capillary Refill. absent: Calf Tenderness Additional comments: Right lower extremity dressing is in place for wound ulcers. No pitting edema of the lower ext. - Neurological Exam Neurological Exam: Alert, Awake, CN II-XII Intact, Oriented x3 - Psychiatric Exam Psychiatric exam: Normal Affect, Normal Mood - Skin Skin Exam: Dry, Intact, Normal Color, Warm Assessment and Plan - Assessment and Plan (Free Text) Assessment: Patient is a 67 y/o M with PMHx Anemia, HTN, ESRD on HD (MW), CAD (s/p stent placement 2007), TIA (1985), DM who presented to the ED for weakness and AMS after HD treatment. Patient will be admitted for Toxic Metabolic Encephalopathy due to Sepsis 2/2 Bacteremia. Plan: Toxic Metabolic Encephalopathy due to Sepsis 2/2 Bacteremia - Possible sources of bacteremia include Right LE Wound Ulcers vs Recent AV Fistula Placement - Blood Cx: gram positive cocci in chains x1; second blood culture prelim is negative, possible contamination - f/u Right LE wound culture results - UCx results negative - c/w merrem (Day 3) as per ID recs - Lower extremity BELLE (08/12): normal resting BELLE. Mild tibial disease. - ID is on consult (Dr. Fitzpatrick). Recs appreciated. - c/w acetaminophen PO q6 prn for fever control - Fever resolved - Leukocytosis downtrending - c/w wound care - CT Abdomen w/o contrast (08/11): no acute intra-abdominal findings - Podiatry on consult (Dr. Vu). Recs appreciated. - Neurology (Dr. [place]) was on consult to r/o stroke. Given normal Head CT and improved mental status, less likely stroke. No further neuro recs. Hyperkalemia and Worsening Renal Function with Hx ESRD (MWF) - HD session today - BUN/Cr 75/12.4; K was 5.9 - pending HD - Nephro on consult (Dr. Garcia). Recs appreciated. - c/w home med cinacalcet - c/w phoslo - Renagel TID added Hx DM - ISS (med) - Accuchecks - c/w home med gabapentin for neuropathy Hx HTN - normotensive Hx HLD - c/w home med Lipitor Hx BPH - c/w home med flomax Diet: Renal Diet DVT ppx: Hep sc PT is on board. Continue with Lidoderm patch for chronic low back pain. Dispo: Patient's encephalopathy is resolved. He will go for HD today. Pending final results of cultures. Continue with antibiotics for now. Case was discussed and reviewed with Attending Physician, Dr. Reyes. <Kassie Reyes - Last Filed: 08/13/18 17:38> Objective - Vital Signs/Intake and Output Vital Signs (last 24 hours): Temp Pulse Resp BP Pulse Ox 98.9 F 92 H 20 95/62 L 96 08/13/18 15:18 08/13/18 15:18 08/13/18 15:18 08/13/18 15:18 08/13/18 15:18 Intake and Output: 08/13/18 08/13/18 06:59 18:59 Intake Total 720 Balance 720 - Medications Medications: Current Medications Acetaminophen (Tylenol 325mg Tab) 650 mg PO Q6H PRN PRN Reason: Fever >100.4 F Last Admin: 08/13/18 08:57 Dose: 650 mg Aspirin (Ecotrin) 81 mg PO DAILY [facility] Atorvastatin Calcium (Lipitor) 20 mg PO DAILY [facility] Last Admin: 08/13/18 16:30 Dose: Not Given Betamethasone/Clotrimazole (Lotrisone) 0 gm TOP BID [facility] Last Admin: 08/13/18 16:36 Dose: Not Given Calcium Acetate (Phoslo) 1,334 mg PO WM [facility] Last Admin: 08/13/18 17:11 Dose: 1,334 mg Cinacalcet (Sensipar) 30 mg PO DAILY [facility] Last Admin: 08/13/18 16:29 Dose: Not Given Dextrose (Dextrose 50% Inj) 0 ml IV STAT PRN; Protocol PRN Reason: Hypoglycemia Protocol Gabapentin (Neurontin) 300 mg PO BID PRN; Protocol PRN Reason: Leg cramps Last Admin: 08/13/18 13:52 Dose: 300 mg Heparin Sodium (Porcine) (Heparin) 5,000 units SC Q8 [facility]; Protocol Last Admin: 08/13/18 16:30 Dose: Not Given Dextrose (Dextrose 5% In Water 1000 Ml) 1,000 mls @ 0 mls/hr IV .Q0M PRN; Prot ocol PRN Reason: Hypoglycemia Protocol Meropenem/Sodium Chloride (Merrem Iv 500 Mg/Ns 50 Ml) 500 mg in 50 mls @ 100 mls/hr IVPB Q24H [facility]; Protocol Last Admin: 08/12/18 22:00 Dose: 100 mls/hr Insulin Human Lispro (Humalog Med) 0 units SC ACHS [facility]; Protocol Last Admin: 08/13/18 16:35 Dose: Not Given Lidocaine (Lidoderm) 1 ea TD DAILY [facility] Last Admin: 08/12/18 12:19 Dose: 1 ea Sevelamer HCl (Renagel) 1,600 mg PO TID [facility] Last Admin: 08/13/18 16:29 Dose: Not Given Tamsulosin HCl (Flomax) 0.4 mg PO DAILY [facility] Last Admin: 08/13/18 16:36 Dose: Not Given - Labs Labs: 08/13/18 10:20 08/13/18 05:30 PT 12.3 SECONDS (9.4-12.5) 08/11/18 16:10 INR 1.11 08/11/18 16:10 APTT 34.8 Seconds (26.9-38.3) 08/11/18 16:10 Attending/Attestation - Attestation I have personally seen and examined this patient.: Yes I have fully participated in the care of the patient.: Yes I have reviewed all pertinent clinical information, including history, physical exam and plan: Yes Notes (Text): Patient seen and examined by me with resident at 10:15AM on 08/13/18 in dialysis. Case including HPI, physical exam, and assessment and plan discussed with resident. Agree with above with following additions/corrections. Patient is a 67-year-old male with past medical history significant for anemia, hypertension (now off medications), end-stage renal disease on dialysis M/W/F, coronary artery disease status post CABG, TIA, hyperlipidemia, gout, and right lower extremity cellulitis and infections status post multiple antibiotic treatm ents that presented to the emergency room with altered mental status. Patient states he is feeling pretty good. Denies any pain today. Patient states he is eating well. Does not feel confused. Denies any abdominal pain. No nausea or vomiting. No chest pain or shortness of breath. No headaches or dizziness. No fevers or chills. No dysuria. No diarrhea. Patient states he feels sleepy today. Physical exam General: Awake and alert lying in bed in no acute distress HEENT: Normocephalic, atraumatic. Extraocular muscles intact, pupils equal and reactive, no scleral icterus. Oropharynx is pink and moist. No pharyngeal erythema or exudate appreciated. Neck is supple. Cardiovascular: Normal rhythm. Normal S1 and S2. No murmurs, rubs, or gallops appreciated Pulmonary: Normal respiratory effort. No rhonchi, rales, or wheezing appreciated. Gastrointestinal: Soft, nondistended. Nontender. Positive bowel sounds all 4 quadrants. No guarding. Obese abdomen Musculoskeletal: Moves all extremities. No calf tenderness. Bilateral lower extremity with pitting edema. Right lower extremity with America Boot. Left lower extremity with erythema below knee to foot (chronic per patient and ). Bilateral toes with erythema and purplish discoloration (also chronic). Central nervous system: AAOx3, CN 2-12 grossly intact. Dermatologic: Skin warm and dry. Assessment and plan: Patient is a 67-year-old male with past medical history significant for anemia, hypertension (now off medications), end-stage renal disease on dialysis M/W/F, coronary artery disease status post CABG, TIA, hyperlipidemia, gout, and right lower extremity cellulitis and infections status post multiple antibiotic treatments that presented to the emergency room with altered mental status. 1. Sepsis. Leukocytosis downtrending. Afebrile now. Lactic acid improved. Continue Merrem. Continue vancomycin after dialysis. ID following, recommendations appreciated. One blood culture positive for gram positive cocci. Wound culture positive for gram positive cocci. Final culture results pending. Influenza negative. Procalcitonin 1.58. Pending 2D echo. 2. Toxic metabolic encephalopathy. Likely secondary to sepsis. Resolved. Code stroke was called in the emergency room. Neurology following, recommendations appreicated. CT head per radiologist showed no acute intracranial abnormalities, no significant findings to account for the clinical presentation. Pending 2D echo. Continue supportive care. Ammonia 23. 3. Left-sided abdominal pain. Resolved. CT abd/pelvis per radiologist showed no acute intra-abdominal finiding. 4. Hyperkalemia. Getting dialysis today. Follow up repeat labs post dialysis.5. End-stage renal disease on dialysis. Patient is on dialysis Saturday/Saturday/Saturday. Nephrology following, recommendations appreciated. Patient getting dialysis today. Continue home sensipar, renagel, and phoslo. 6. Right lower extremity chronic infection. Continue with America boot. Podiatry following, recommendations appreciated. Bilateral lower extremity dopplers negative for DVT. Bilateral lower extremity BELLE exam per radiologist shows normal resting ABIs, possible mild symmetric tibial disease. Wound culture positive for gram positive cocci. Pending final results. Continue antibiotics per ID. 7. Coronary artery disease status post CABG. Continue home lipitor and ASA. 8. Hyperlipidemia. Continue Lipitor 9. Type 2 diabetes. Patient takes Januvia at home. Continue insulin sliding scale. Continue to monitor Accu-Cheks. 10. Gout. No acute issues currently. 11. DVT prophylaxis. Heparin 12. Patient is a full code. Case discussed in detail with the patient regarding current diagnosis and treatment plan. All questions answered.
[2018-08-13 10:43] LABS: HEMOGLOBIN 11.8 g/dL (14.0-18.0); MEAN CORPUSCULAR HEMOGLOBIN 33.4 pg (25.0-35.0); MEAN CORPUSCULAR HGB CONC 32.8 g/dl (31.0-37.0); MEAN PLATELET VOLUME 10.7 fl (7.0-11.0); RBC 3.53 10^6/uL (3.5-6.1); RED CELL DISTRIBUTION WIDTH 14.7 % (11.5-14.5); WHITE BLOOD COUNT 13.8 10^3/uL (4.5-11.0)
--- NOTE | 2018-08-13 12:45 | PN ---
DATE: 08/13/2018 SUBJECTIVE: The patient is seen in the dialysis unit. He is awake, he is alert. He complains of pain in his feet. He denies any chest pain. He denies any palpitations. PHYSICAL EXAMINATION: GENERAL: An elderly male lying in bed in the dialysis unit. VITAL SIGNS: Blood pressure 110/72, heart rate 79, respiratory rate 18, temperature 97.2. HEENT: Normocephalic, atraumatic, positive pallor. NECK: Supple, no JVD. LUNGS: Bilateral equal entry, bilaterally equal expansion, no rales. CARDIAC: S1, S2. Regular rate and rhythm, no murmur, no rub. ABDOMEN: Obese, distended, soft, nontender, bowel sounds present. EXTREMITIES: Erythema of the left lower extremity, 1+ edema, right lower extremities wrapped in the Johnny wrap. LABORATORY DATA: WBC 13.8, hemoglobin 11.8, hematocrit 36, platelets 191. Sodium 135, potassium 5.9, chloride 292, CO2 of 28, BUN 75, creatinine 12.4, glucose 94, calcium 10.0, phosphorus 11.2 magnesium 2.7, albumin 4.5. Urinalysis yellow, slightly cloudy, pH 7.5, specific gravity , protein 100, glucose 100, moderate leukocyte esterase. Wound culture, Gram-positive cocci from the left leg. Blood culture, Gram-positive cocci in chains. Lower extremity ultrasound showing normal resting ABIs. CT of the abdomen and pelvis, no intraabdominal findings. CURRENT MEDICATIONS: Flomax, insulin, Lipitor, meropenem 500 every 24 hours, gabapentin 300 twice a day, PhosLo, Sensipar, Tylenol, gentamicin 300 mg daily. ASSESSMENT: 1. Gram-positive bacteremia, likely secondary to infected wound. 2. Altered mental status, secondary to sepsis, now improved. 3. Non insulin dependent diabetes mellitus. 4. Hypertension. 5. Obesity. 6. End-stage renal disease. 7. Severe hyperphosphatemia. 8. Severe secondary hyperparathyroidism. PLAN: 1. Continue antibiotics as per ID recommendations. 2. Add Renagel 1600 mg three times a day with meals. 3. Continue PhosLo. 4. Continue Sensipar. 5. Stable dialysis. 6. Wound care. 7. Check labs in a.m. Jeannie Balderas MD [facility] # [id number]
--- NOTE | 2018-08-13 13:02 | CP.PCM.PN ---
<Markos Andre - Last Filed: 08/13/18 12:59> Subjective - Date & Time of Evaluation Date of Evaluation: 08/13/18 Time of Evaluation: 12:59 - Subjective Subjective: Podiatry consult note for Dr. Mcleod, 67 y/o M seen and evaluated in dialysis for right lower extremity wound, and bilateral erythema. Patient states he has numbness and tingling to both feet, denies any pain at this time. Patient denies any other pedal complaints. Objective - Vital Signs/Intake and Output Vital Signs (last 24 hours): Temp Pulse Resp BP Pulse Ox 97.2 F L 79 18 110/72 95 08/13/18 06:00 08/13/18 06:00 08/13/18 06:00 08/13/18 06:00 08/13/18 06:00 Intake and Output: 08/13/18 08/13/18 06:59 18:59 Intake Total 720 Balance 720 - Medications Medications: Current Medications Acetaminophen (Tylenol 325mg Tab) 650 mg PO Q6H PRN PRN Reason: Fever >100.4 F Last Admin: 08/13/18 08:57 Dose: 650 mg Atorvastatin Calcium (Lipitor) 20 mg PO DAILY [facility] Last Admin: 08/12/18 10:25 Dose: 20 mg Betamethasone/Clotrimazole (Lotrisone) 0 gm TOP BID [facility] Last Admin: 08/12/18 17:24 Dose: 1 applic Calcium Acetate (Phoslo) 1,334 mg PO WM [facility] Last Admin: 08/13/18 07:51 Dose: 1,334 mg Cinacalcet (Sensipar) 30 mg PO DAILY [facility] Last Admin: 08/12/18 10:25 Dose: 30 mg Dextrose (Dextrose 50% Inj) 0 ml IV STAT PRN; Protocol PRN Reason: Hypoglycemia Protocol Gabapentin (Neurontin) 300 mg PO BID PRN; Protocol PRN Reason: Leg cramps Last Admin: 08/12/18 22:18 Dose: 300 mg Heparin Sodium (Porcine) (Heparin) 5,000 units SC Q8 [facility]; Protocol Last Admin: 08/13/18 05:22 Dose: 5,000 units Dextrose (Dextrose 5% In Water 1000 Ml) 1,000 mls @ 0 mls/hr IV .Q0M PRN; Protocol PRN Reason: Hypoglycemia Protocol Meropenem/Sodium Chloride (Merrem Iv 500 Mg/Ns 50 Ml) 500 mg in 50 mls @ 100 mls/hr IVPB Q24H [facility]; Protocol Last Admin: 08/12/18 22:00 Dose: 100 mls/hr Insulin Human Lispro (Humalog Med) 0 units SC ACHS [facility]; Protocol Last Admin: 08/13/18 07:41 Dose: Not Given Lidocaine (Lidoderm) 1 ea TD DAILY [facility] Last Admin: 08/12/18 12:19 Dose: 1 ea Sevelamer HCl (Renagel) 1,600 mg PO TID [facility] Tamsulosin HCl (Flomax) 0.4 mg PO DAILY [facility] Last Admin: 08/12/18 10:25 Dose: 0.4 mg - Labs Labs: 08/13/18 10:20 08/13/18 05:30 PT 12.3 SECONDS (9.4-12.5) 08/11/18 16:10 INR 1.11 08/11/18 16:10 APTT 34.8 Seconds (26.9-38.3) 08/11/18 16:10 - Constitutional Appears: Well, Non-toxic, No Acute Distress - Head Exam Head Exam: ATRAUMATIC, NORMOCEPHALIC - Extremities Exam Additional comments: Bilateral Lower Extremity Exam VASC: DP and PT 2/4 palpable bilaterally, CFT less than 3 seconds, TG warm to warm, increased on the right lower extremity, minimal swelling noted to bialteral lower legs NEURO: grossly intact DERM: superficial wounds noted to the medial aspect of the right leg, 100% granular wound base with 0.1 cm depth, no malodor, no drainage, no tunneling, no tracking, no probe to bone, positive maria de jesus-wound erythema from the ankle to the level of the knee R >L ORTHO: pain on palpation to the right leg at the site of the wounds, MSK 5/5 - Neurological Exam Neurological Exam: Alert, Awake, Oriented x3 - Psychiatric Exam Psychiatric exam: Normal Affect, Normal Mood Assessment and Plan - Assessment and Plan (Free Text) Assessment: 67 y/o male seen and evaluated for bilateral LE erythema, and wound to the RLE Plan: Patient was seen and evaluated with Dr. Mcleod Plan was discussed Chart, labs and vitals were reviewed- afebrile at this time, positive leukocytosis at 13.8 Patient wound cleaned with saline and dressed with adaptic, maxorb, DSD Unnaboots and Coban applied to the RLE LE US: negative for DVT Lotrisone for B/L LE BELLE/PVR to assess vascular flow: normal resting BELLE, mild tibial disease Infectious disease on board, continue IV Abx Podiatry will continue to follow patient while in house Thank you for the Podiatry consult <Andres Mcleod - Last Filed: 08/13/18 17:54> Objective - Vital Signs/Intake and Output Vital Signs (last 24 hours): Temp Pulse Resp BP Pulse Ox 98.9 F 92 H 20 95/62 L 96 08/13/18 15:18 08/13/18 15:18 08/13/18 15:18 08/13/18 15:18 08/13/18 15:18 Intake and Output: 08/13/18 08/13/18 06:59 18:59 Intake Total 720 Balance 720 - Medications Medications: Current Medications Acetaminophen (Tylenol 325mg Tab) 650 mg PO Q6H PRN PRN Reason: Fever >100.4 F Last Admin: 08/13/18 08:57 Dose: 650 mg Aspirin (Ecotrin) 81 mg PO DAILY [facility] Atorvastatin Calcium (Lipitor) 20 mg PO DAILY [facility] Last Admin: 08/13/18 16:30 Dose: Not Given Betamethasone/Clotrimazole (Lotrisone) 0 gm TOP BID [facility] Last Admin: 08/13/18 16:36 Dose: Not Given Calcium Acetate (Phoslo) 1,334 mg PO WM [facility] Last Admin: 08/13/18 17:11 Dose: 1,334 mg Cinacalcet (Sensipar) 30 mg PO DAILY [facility] Last Admin: 08/13/18 16:29 Dose: Not Given Dextrose (Dextrose 50% Inj) 0 ml IV STAT PRN; Protocol PRN Reason: Hypoglycemia Protocol Gabapentin (Neurontin) 300 mg PO BID PRN; Protocol PRN Reason: Leg cramps Last Admin: 08/13/18 13:52 Dose: 300 mg Heparin Sodium (Porcine) (Heparin) 5,000 units SC Q8 [facility]; Protocol Last Admin: 08/13/18 16:30 Dose: Not Given Dextrose (Dextrose 5% In Water 1000 Ml) 1,000 mls @ 0 mls/hr IV .Q0M PRN; Protocol PRN Reason: Hypoglycemia Protocol Meropenem/Sodium Chloride (Merrem Iv 500 Mg/Ns 50 Ml) 500 mg in 50 mls @ 100 mls/hr IVPB Q24H [facility]; Protocol Last Admin: 08/12/18 22:00 Dose: 100 mls/hr Insulin Human Lispro (Humalog Med) 0 units SC ACHS [facility]; Protocol Last Admin: 08/13/18 16:35 Dose: Not Given Lidocaine (Lidoderm) 1 ea TD DAILY [facility] Last Admin: 08/12/18 12:19 Dose: 1 ea Sevelamer HCl (Renagel) 1,600 mg PO TID [facility] Last Admin: 08/13/18 16:29 Dose: Not Given Tamsulosin HCl (Flomax) 0.4 mg PO DAILY [facility] Last Admin: 08/13/18 16:36 Dose: Not Given - Labs Labs: 08/13/18 10:20 08/13/18 05:30 PT 12.3 SECONDS (9.4-12.5) 08/11/18 16:10 INR 1.11 08/11/18 16:10 APTT 34.8 Seconds (26.9-38.3) 08/11/18 16:10 Attending/Attestation - Attestation I have personally seen and examined this patient.: Yes I have fully participated in the care of the patient.: Yes I have reviewed all pertinent clinical information, including history, physical exam and plan: Yes
--- NOTE | 2018-08-13 14:22 | CP.PCM.PCO ---
Physician Communication Note - Physician Communication Note Physician Communication Note: positive blood cultures, vanco will be added as per ID
[2018-08-13] MEDS ORDERED: Vancomycin 500mg in NS 500 MG/100 ML BAG IVPB ONE (16:23)
--- NOTE | 2018-08-13 16:24 | CP.PCM.PN ---
Subjective - Date & Time of Evaluation Date of Evaluation: 08/13/18 Time of Evaluation: 14:45 - Subjective Subjective: Infectious Disease Follow Up: August 13, 2018 67 yo male well known to me from multiple previous hospitalizations at [facility] [place] in the past year. PMHx includes Anemia, HTN, ESRD on HD (MW), CAD (s/p s tent placement 2007), TIA (1985), DM. The patient presented to the ED for weakness and AMS after HD treatment. Dialysis center called EMS. In ER he was found to be febrile to 103.5 F. He was AAO x 1. Normally the patient is mostly AAO x 3 but has had periods of confusion in my experience before (This was during the time the patient was on Peritoneal Dialysis). A similar episodes occurred last year where he was admitted to [facility] [place] and this was also when he was converted from PD to HD. Patient is currently awake and is able to remember me. is also at bedside. Sick contacts of 4 year old grandchildren with colds recently. Fevers up to 103.5 F. Given my previous experiences with this patient on prior hospitalizations, I would start antibiotic coverage aggressively. Afebrile so far today. The patient appears more awake and alert. Urinalysis appears to indicate that UTI is the most likely culprit. Blood cultures showing growth of gram positive cocci in pairs. Currently on Meropenem. Objective - Vital Signs/Intake and Output Vital Signs (last 24 hours): Temp Pulse Resp BP Pulse Ox 98.9 F 92 H 20 95/62 L 96 08/13/18 15:18 08/13/18 15:18 08/13/18 15:18 08/13/18 15:18 08/13/18 15:18 Intake and Output: 08/13/18 08/13/18 06:59 18:59 Intake Total 720 Balance 720 - Medications Medications: Current Medications Acetaminophen (Tylenol 325mg Tab) 650 mg PO Q6H PRN PRN Reason: Fever >100.4 F Last Admin: 08/13/18 08:57 Dose: 650 mg Atorvastatin Calcium (Lipitor) 20 mg PO DAILY [facility] Last Admin: 08/12/18 10:25 Dose: 20 mg Betamethasone/Clotrimazole (Lotrisone) 0 gm TOP BID [facility] Last Admin: 08/12/18 17:24 Dose: 1 applic Calcium Acetate (Phoslo) 1,334 mg PO WM [facility] Last Admin: 08/13/18 07:51 Dose: 1,334 mg Cinacalcet (Sensipar) 30 mg PO DAILY [facility] Last Admin: 08/12/18 10:25 Dose: 30 mg Dextrose (Dextrose 50% Inj) 0 ml IV STAT PRN; Protocol PRN Reason: Hypoglycemia Protocol Gabapentin (Neurontin) 300 mg PO BID PRN; Protocol PRN Reason: Leg cramps Last Admin: 08/13/18 13:52 Dose: 300 mg Heparin Sodium (Porcine) (Heparin) 5,000 units SC Q8 [facility]; Protocol Last Admin: 08/13/18 05:22 Dose: 5,000 units Dextrose (Dextrose 5% In Water 1000 Ml) 1,000 mls @ 0 mls/hr IV .Q0M PRN; Pr otocol PRN Reason: Hypoglycemia Protocol Meropenem/Sodium Chloride (Merrem Iv 500 Mg/Ns 50 Ml) 500 mg in 50 mls @ 100 mls/hr IVPB Q24H [facility]; Protocol Last Admin: 08/12/18 22:00 Dose: 100 mls/hr Insulin Human Lispro (Humalog Med) 0 units SC ACHS [facility]; Protocol Last Admin: 08/13/18 07:41 Dose: Not Given Lidocaine (Lidoderm) 1 ea TD DAILY [facility] Last Admin: 08/12/18 12:19 Dose: 1 ea Sevelamer HCl (Renagel) 1,600 mg PO TID [facility] Tamsulosin HCl (Flomax) 0.4 mg PO DAILY [facility] Last Admin: 08/12/18 10:25 Dose: 0.4 mg - Labs Labs: 08/13/18 10:20 08/13/18 05:30 PT 12.3 SECONDS (9.4-12.5) 08/11/18 16:10 INR 1.11 08/11/18 16:10 APTT 34.8 Seconds (26.9-38.3) 08/11/18 16:10 - Constitutional Appears: Non-toxic, No Acute Distress, Chronically Ill - Head Exam Head Exam: ATRAUMATIC, NORMOCEPHALIC - Eye Exam Eye Exam: EOMI Pupil Exam: NORMAL ACCOMODATION, PERRL - ENT Exam ENT Exam: Mucous Membranes Moist, Normal External Ear Exam, TM's Normal Bilaterally - Neck Exam Neck Exam: Full ROM, Normal Inspection - Respiratory Exam Respiratory Exam: Clear to Ausculation Bilateral, NORMAL BREATHING PATTERN. absent: Rales, Rhonchi, Wheezes - Cardiovascular Exam Cardiovascular Exam: REGULAR RHYTHM, RRR, +S1 Additional comments: healed scar from CABG. Right chest wall Permacath. - GI/Abdominal Exam GI & Abdominal Exam: Soft, Normal Bowel Sounds. absent: Distended, Tenderness - Extremities Exam Extremities Exam: Full ROM, Pedal Edema Additional comments: right leg ulcerations currently wrapped in bandages, chronic venous stasis on both lower extremities. - Neurological Exam Neurological Exam: Alert, Awake, CN II-XII Intact, Oriented x3 - Psychiatric Exam Psychiatric exam: Normal Affect, Normal Mood - Skin Skin Exam: Intact, Normal Color Assessment and Plan - Assessment and Plan (Free Text) Assessment: 67 yo male well known to me on previous hospitalization to [facility] [place]. The patient with generalized weakness, fevers up to 103.5 F, and leukocytosis up to 21. Lactic acid of 2.8. Procalcitonin pending. Patient is a relatively recent convert to HD within the past year. 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 Would obtain cultures of the blood, urine (if present), and of the right leg ulcerations. Would start aggressively on antibiotic coverage with Meropenem instead of Zosyn and give Vancomycin after HD sessions. Monitor glucose levels. Given dose of aminoglycoside at time of admission. Head CT showed no acute changes Chest X-ray showing no acute cardiopulmonary changes. Extremity ultrasound showed no DVT on the left leg but right leg was a limited study but no visualized DVT. Abd/Pel CT pending. Given urinalysis, UTI appears to be the most likely culprit. Awaiting urine cultures. Blood cultures showing growth of gram positive cocci in pairs. On Meropenem. IV Vancomycin after HD sessions. Thank you for allowing me to participate in the care of this patient, we will follow with you.
[2018-08-13] MEDS: Clotrimazole/Betamethasone Cream(15 gm) TOP SCH ×2 (16:36→18:54)
[2018-08-13] MEDS: MEROPENEM 500 MG in NS 500 MG/50 ML BAG IVPB SCH (22:33)
[2018-08-14 07:42] LABS: BASO # 0.05 K/mm3 (0.0-2.0); BASO % 0.4 % (0.0-3.0); EOS # 0.5 (0.0-0.7); EOS % 3.7 % (1.5-5.0); HEMOGLOBIN 11.8 g/dL (14.0-18.0); LYMPH # 3.3 (1.2-3.4); LYMPH % 26.2 % (22.0-35.0); MEAN CELL VOLUME 102.8 fl (80.0-105.0); MEAN CORPUSCULAR HEMOGLOBIN 33.6 pg (25.0-35.0); MEAN CORPUSCULAR HGB CONC 32.7 g/dl (31.0-37.0); MEAN PLATELET VOLUME 10.7 fl (7.0-11.0); MONO % 7.7 % (1.0-6.0); RBC 3.51 10^6/uL (3.5-6.1); RED CELL DISTRIBUTION WIDTH 14.7 % (11.5-14.5); WHITE BLOOD COUNT 12.4 10^3/uL (4.5-11.0)
[2018-08-14 08:06] LABS: ALB/GLOB RATIO 1.4 (1.1-1.8); ALBUMIN 4.3 g/dL (3.0-4.8); CALCIUM 10.2 mg/dL (8.4-10.5)
--- NOTE | 2018-08-14 09:16 | CARD ---
APPROVED REPORT Date of service: 08/14/2018 EXAM: Two-dimensional and M-mode echocardiogram with Doppler and color Doppler. INDICATION Abnormal EKG/Arrhythmia 2D DIMENSIONS Left Atrium (2D)3.4 (1.6-4.0cm)IVSd1.8 (0.7-1.1cm) LVDd4.0 (3.9-5.9cm)PWd1.7 (0.7-1.1cm) LVDs2.9 (2.5-4.0cm)FS (%) 29.5 % LVEF (%)56.9 (>50%) M-Mode DIMENSIONS Aortic Root2.80 (2.2-3.7cm)Aortic Cusp Exc.1.20 (1.5-2.0cm) Aortic Valve AoV Peak Ypoqcawa974.0cm/Jody Peak GR.8mmHg Mitral Valve MV E Daqneord66.7cm/sMV A Xxogkpel699.0cm/sE/A ratio0.6 TDI E/Lateral E'0.0E/Medial E'0.0 Tricuspid Valve TR Peak Lnyqjdmx872ps/sRAP [id number] Peak Gr.16mmHg [id number] LEFT VENTRICLE The left ventricle is normal size. There is moderate concentric left ventricular hypertrophy. The left ventricular function is normal. The left ventricular ejection fraction is within the normal range. There is normal LV segmental wall motion. RIGHT VENTRICLE The right ventricle is normal size. The right ventricular systolic function is normal. ATRIA The left atrium size is normal. The right atrium size is normal. The interatrial septum is intact with no evidence for an atrial septal defect. AORTIC VALVE The aortic valve is not well visualized. No aortic regurgitation is present. There is no aortic valvular stenosis. MITRAL VALVE Mitral annular calcification is mild. There is no mitral valve regurgitation noted. TRICUSPID VALVE The tricuspid valve is normal in structure. There is mild tricuspid regurgitation. PULMONIC VALVE The pulmonic valve is not well visualized. GREAT VESSELS The aortic root is normal in size. The IVC is normal in size and collapses >50% with inspiration. PERICARDIAL EFFUSION There is no pleural effusion. There is no pericardial effusion. <Conclusion> Technically limited study. LV size and systolic function appear to be within normal limits. Moderate concentric LVH. Mild TR.
[2018-08-14] MEDS ORDERED: Dextrose 50% SYRINGE Inj (50 ml) IVP ONE (09:18)
[2018-08-14] MEDS ORDERED: Insulin Regular 1 UNITS/0.01 ML ML SC ONE (09:19)
[2018-08-14] MEDS ORDERED: Unna Boot TOP ONE (12:32)
--- NOTE | 2018-08-14 12:50 | CP.PCM.PCO ---
Physician Communication Note - Physician Communication Note Physician Communication Note: repeat blood culture
--- NOTE | 2018-08-14 13:06 | CP.PCM.PN ---
<Kvng Johnson - Last Filed: 08/14/18 13:03> Subjective - Date & Time of Evaluation Date of Evaluation: 08/14/18 Time of Evaluation: 08:00 - Subjective Subjective: Kvng Johnson PGY1 Medicine Progress Note for Dr. Reyes Patient was seen and examined at bedside this morning. Vital signs are stable. Patient tolerated 4 hours of HD yesterday with no complications. Patient is feeling better. No adverse overnight events. Denies fevers, chills, shortness of breath, chest pain, n/v/d, palpitations. Patient was told he will be going for another session of HD today given his Potassium level is still very high. Patient verbalized understanding. A full 12 point ROS was conducted and unremarkable except as stated above. Objective - Vital Signs/Intake and Output Vital Signs (last 24 hours): Temp Pulse Resp BP Pulse Ox 98.7 F 86 18 107/64 94 L 08/14/18 06:00 08/14/18 06:00 08/14/18 06:00 08/14/18 06:00 08/14/18 06:00 Intake and Output: 08/14/18 08/14/18 06:59 18:59 Intake Total 900 Balance 900 - Medications Medications: Current Medications Acetaminophen (Tylenol 325mg Tab) 650 mg PO Q6H PRN PRN Reason: Fever >100.4 F Last Admin: 08/14/18 10:34 Dose: 650 mg Allopurinol (Zyloprim) 100 mg PO DAILY [facility] Aspirin (Ecotrin) 81 mg PO DAILY [facility] Last Admin: 08/14/18 09:57 Dose: 81 mg Atorvastatin Calcium (Lipitor) 20 mg PO DAILY [facility] Last Admin: 08/14/18 09:57 Dose: 20 mg Betamethasone/Clotrimazole (Lotrisone) 0 gm TOP BID [facility] Last Admin: 08/13/18 18:54 Dose: Not Given Calcium Acetate (Phoslo) 1,334 mg PO WM [facility] Last Admin: 08/14/18 08:13 Dose: 1,334 mg Cinacalcet (Sensipar) 30 mg PO DAILY [facility] Last Admin: 08/14/18 09:57 Dose: 30 mg Dextrose (Dextrose 50% Inj) 0 ml IV STAT PRN; Protocol PRN Reason: Hypoglycemia Protocol Gabapentin (Neurontin) 300 mg PO BID PRN; Protocol PRN Reason: Leg cramps Last Admin: 08/14/18 10:34 Dose: 300 mg Heparin Sodium (Porcine) (Heparin) 5,000 units SC Q8 [facility]; Protocol Last Admin: 08/14/18 06:28 Dose: 5,000 units Dextrose (Dextrose 5% In Water 1000 Ml) 1,000 mls @ 0 mls/hr IV .Q0M PRN; P rotocol PRN Reason: Hypoglycemia Protocol Meropenem/Sodium Chloride (Merrem Iv 500 Mg/Ns 50 Ml) 500 mg in 50 mls @ 100 mls/hr IVPB Q24H [facility]; Protocol Last Admin: 08/13/18 22:33 Dose: 100 mls/hr Insulin Human Lispro (Humalog Med) 0 units SC ACHS [facility]; Protocol Last Admin: 08/13/18 16:35 Dose: Not Given Lidocaine (Lidoderm) 1 ea TD DAILY [facility] Last Admin: 08/12/18 12:19 Dose: 1 ea Sevelamer HCl (Renagel) 1,600 mg PO TID [facility] Last Admin: 08/14/18 09:56 Dose: 1,600 mg Tamsulosin HCl (Flomax) 0.4 mg PO DAILY [facility] Last Admin: 08/14/18 09:57 Dose: 0.4 mg - Labs Labs: 08/14/18 07:30 08/14/18 07:30 PT 12.3 SECONDS (9.4-12.5) 08/11/18 16:10 INR 1.11 08/11/18 16:10 APTT 34.8 Seconds (26.9-38.3) 08/11/18 16:10 - Head Exam Head Exam: ATRAUMATIC, NORMAL INSPECTION, NORMOCEPHALIC - Eye Exam Eye Exam: EOMI, Normal appearance - ENT Exam ENT Exam: Mucous Membranes Moist - Respiratory Exam Respiratory Exam: Clear to Ausculation Bilateral, NORMAL BREATHING PATTERN. absent: Rales, Rhonchi, Wheezes - Cardiovascular Exam Cardiovascular Exam: REGULAR RHYTHM, +S1, +S2 - GI/Abdominal Exam GI & Abdominal Exam: Soft, Normal Bowel Sounds. absent: Tenderness - Extremities Exam Extremities Exam: Full ROM, Normal Capillary Refill, Normal Inspection. absent: Joint Swelling, Pedal Edema Additional comments: Right lower extremity dressing is in place for wound ulcers. No pitting edema of the lower ext. - Neurological Exam Neurological Exam: Alert, Awake, CN II-XII Intact, Normal Gait, Oriented x3 - Psychiatric Exam Psychiatric exam: Normal Affect, Normal Mood - Skin Skin Exam: Dry, Intact, Normal Color, Warm Assessment and Plan - Assessment and Plan (Free Text) Assessment: Patient is a 67 y/o M with PMHx Anemia, HTN, ESRD on HD (MWF), CAD (s/p stent placement 2007), TIA (1985), DM who presented to the ED for weakness and AMS after HD treatment. Patient will be admitted for Toxic Metabolic Encephalopathy due to Sepsis 2/2 Bacteremia and R-LE Wound. Plan: Toxic Metabolic Encephalopathy due to Sepsis 2/2 Bacteremia and R-LE Wound - Right LE wound culture +MRSA - Blood Cx: +beta hemolytic strep; f/u second blood culture result - Echo (08/14): EF 56.9%. Moderate LVH. - c/w merrem (Day 4) as per ID recs. Blood cultures were repeated. As per ID, if repeat blood cx are negative, patient can get vanco 500mg after each HD session x2 weeks. - ID is on consult (Dr. Fitzpatrick). Recs appreciated. - Leukocytosis downtrending; fever resolved - c/w wound care, america boot, and podiatry recs - Lower extremity BELLE (08/12): normal resting BELLE. Mild tibial disease. - CT Abdomen w/o contrast (08/11): no acute intra-abdominal findings - Podiatry on consult (Dr. Vu). Recs appreciated. - Neurology (Dr. Birmingham) was on consult to r/o stroke. Given normal Head CT and improved mental status, less likely stroke. No further neuro recs. Hyperkalemia and Worsening Renal Function with Hx ESRD (MWF) - Last HD session was on 08/13. Patient will go for HD session again today, 08/14, given that his hyperkalemia has not resolved - K was 6.0, uptrending - BUN/Cr 51/9.1, downtrending - Nephro on consult (Dr. Garcia). Recs appreciated. - c/w home med cinacalcet - c/w phoslo - c/w Renagel TID Hx Gout - restarted on home med allopurinol 100mg daily Hx CAD s/p CABG - c/w home lipitor and ASA Hx DM - ISS (med) - Accuchecks - c/w home med gabapentin Hx HTN - normotensive - Patient no longer taking his home BP meds Hx BPH - c/w home med flomax Diet: Renal Diet DVT ppx: Hep sc PT is on board. Dispo: Continue to monitor patient on the floor. Plan for HD today due to worsening hyperkalemia. Continue with antibiotics for now. Case was discussed and reviewed with Attending Physician, Dr. Reyes. <Kassie Reyes R - Last Filed: 08/15/18 16:23> Objective - Vital Signs/Intake and Output Vital Signs (last 24 hours): Temp Pulse Resp BP Pulse Ox 98.3 F 79 18 100/62 98 08/15/18 08:18 08/15/18 08:18 08/15/18 08:18 08/15/18 08:18 08/15/18 08:18 Intake and Output: 08/15/18 08/15/18 06:59 18:59 Intake Total 360 Balance 360 - Medications Medications: Current Medications Acetaminophen (Tylenol 325mg Tab) 650 mg PO Q6H PRN PRN Reason: Fever >100.4 F Last Admin: 08/15/18 07:56 Dose: 650 mg Allopurinol (Zyloprim) 100 mg PO DAILY [facility] Last Admin: 08/15/18 11:27 Dose: Not Given Aspirin (Ecotrin) 81 mg PO DAILY [facility] Last Admin: 08/15/18 11:26 Dose: Not Given Atorvastatin Calcium (Lipitor) 20 mg PO DAILY [facility] Last Admin: 08/15/18 11:26 Dose: Not Given Betamethasone/Clotrimazole (Lotrisone) 0 gm TOP BID [facility] Last Admin: 08/15/18 11:26 Dose: Not Given Calcium Acetate (Phoslo) 1,334 mg PO WM [facility] Last Admin: 08/15/18 13:43 Dose: Not Given Cinacalcet (Sensipar) 30 mg PO DAILY [facility] Last Admin: 08/15/18 11:27 Dose: Not Given Dextrose (Dextrose 50% Inj) 0 ml IV STAT PRN; Protocol PRN Reason: Hypoglycemia Protocol Gabapentin (Neurontin) 300 mg PO BID PRN; Protocol PRN Reason: Leg cramps Last Admin: 08/15/18 07:57 Dose: 300 mg Heparin Sodium (Porcine) (Heparin) 5,000 units SC Q8 [facility]; Protocol Last Admin: 08/15/18 14:43 Dose: 5,000 units Dextrose (Dextrose 5% In Water 1000 Ml) 1,000 mls @ 0 mls/hr IV .Q0M PRN; Protocol PRN Reason: Hypoglycemia Protocol Insulin Human Lispro (Humalog Med) 0 units SC ACHS [facility]; Protocol Last Admin: 08/15/18 11:31 Dose: Not Given Lidocaine (Lidoderm) 1 ea TD DAILY [facility] Last Admin: 08/15/18 11:26 Dose: Not Given Sevelamer HCl (Renagel) 1,600 mg PO TID [facility] Last Admin: 08/15/18 14:43 Dose: 1,600 mg Tamsulosin HCl (Flomax) 0.4 mg PO DAILY [facility] Last Admin: 08/15/18 11:26 Dose: Not Given - Labs Labs: 08/15/18 10:00 08/15/18 10:00 PT 12.3 SECONDS (9.4-12.5) 08/11/18 16:10 INR 1.11 08/11/18 16:10 APTT 34.8 Seconds (26.9-38.3) 08/11/18 16:10 Attending/Attestation - Attestation I have personally seen and examined this patient.: Yes I have fully participated in the care of the patient.: Yes I have reviewed all pertinent clinical information, including history, physical exam and plan: Yes Notes (Text): Patient seen and examined by me with resident at 10:35AM on 08/14/18. Case including HPI, physical exam, and assessment and plan discussed with resident. Agree with above with following additions/corrections. Patient is a 67-year-old male with past medical history significant for anemia, hypertension (now off medications), end-stage renal disease on dialysis M/W/F, coronary artery disease status post CABG, TIA, hyperlipidemia, gout, and right lower extremity cellulitis and infections status post multiple antibiotic t reatments that presented to the emergency room with altered mental status. Patient states he is feeling better. Patient has been able to walk with his cane. Denies any abdominal pain. No nausea or vomiting. No chest pain or shortness of breath. No headaches or dizziness. No fevers or chills. No dysuria. No diarrhea. Patient understands that he will be going for dialysis today secondary to his potassium level. Physical exam General: Awake and alert lying in bed in no acute distress HEENT: Normocephalic, atraumatic. Extraocular muscles intact, pupils equal and reactive, no scleral icterus. Oropharynx is pink and moist. No pharyngeal erythema or exudate appreciated. Neck is supple. Cardiovascular: Normal rhythm. Normal S1 and S2. No murmurs, rubs, or gallops appreciated Pulmonary: Normal respiratory effort. No rhonchi, rales, or wheezing appreciated. Gastrointestinal: Soft, nondistended. Nontender. Positive bowel sounds all 4 quadrants. No guarding. Musculoskeletal: Moves all extremities. No calf tenderness. Bilateral lower extremity with pitting edema. Right lower extremity with America Boot. Left lower extremity with erythema below knee to foot (chronic per patient and ). Bilat eral toes with erythema and purplish discoloration (also chronic). Central nervous system: AAOx3, CN 2-12 grossly intact. Dermatologic: Skin warm and dry. Assessment and plan: Patient is a 67-year-old male with past medical history significant for anemia, hypertension (now off medications), end-stage renal disease on dialysis M/W/F, coronary artery disease status post CABG, TIA, hyperlipidemia, gout, and right lower extremity cellulitis and infections status post multiple antibiotic treatments that presented to the emergency room with altered mental status. 1. Sepsis. Leukocytosis downtrending. Afebrile. . Continue Merrem. Continue vancomycin after dialysis. ID following, recommendations appreciated. One blood culture positive for gram positive for beta hemolytic strep group B. Wound culture positive for MRSA. Procalcitonin 1.58. Pending 2D echo results. 2. Toxic metabolic encephalopathy. Likely secondary to sepsis. Resolved. Code stroke was called in the emergency room. Neurology recommendations appreicated. CT head per radiologist showed no acute intracranial abnormalities, no significant findings to account for the clinical presentation. Pending 2D echo. Continue supportive care. Ammonia 23. 3. Left-sided abdominal pain. Resolved. CT abd/pelvis per radiologist showed no acute intra-abdominal finiding. 4. Hyperkalemia. Getting dialysis today. Follow up repeat labs post dialysis. 5. End-stage renal disease on dialysis. Patient is on dialysis Saturday/Saturday/Saturday. Nephrology following, recommendations appreciated. Patient getting dialysis today. Continue home sensipar, renagel, and phoslo. 6. Right lower extremity chronic infection. Continue with America boot. Podiatry following, recommendations appreciated. Bilateral lower extremity dopplers negative for DVT. Bilateral lower extremity BELLE exam per radiologist shows normal resting ABIs, possible mild symmetric tibial disease. Wound culture positive for MRSA. Continue antibiotics per ID. 7. Coronary artery disease status post CABG. Continue home lipitor and ASA. 8. Hyperlipidemia. Continue Lipitor 9. Type 2 diabetes. Patient takes Januvia at home. Continue insulin sliding scale. Continue to monitor Accu-Cheks. 10. Gout. No acute issues currently. Restarted on home allopurinol. 11. DVT prophylaxis. Heparin 12. Patient is a full code. Case discussed in detail with the patient regarding current diagnosis and treatment plan. All questions answered.
[2018-08-14] MEDS: Insulin Lispro (humaLOG) MEDIUM Coverage SC SCH ×5 (14:09→22:02)
[2018-08-14] MEDS: Clotrimazole/Betamethasone Cream(15 gm) TOP SCH ×2 (16:23→17:54)
[2018-08-14] MEDS: Lidocaine 5% Patch TD SCH ×2 (16:28→20:37)
--- NOTE | 2018-08-14 17:40 | CP.PCM.PN ---
Subjective - Date & Time of Evaluation Date of Evaluation: 08/14/18 Time of Evaluation: 16:00 - Subjective Subjective: Infectious Disease Follow Up: August 14, 2018 67 yo male well known to me from multiple previous hospitalizations at [facility] in the past year. PMHx includes Anemia, HTN, ESRD on HD (MW), CAD (s/p s tent placement 2007), TIA (1985), DM. The patient presented to the ED for weakness and AMS after HD treatment. Dialysis center called EMS. In ER he was found to be febrile to 103.5 F. He was AAO x 1. Normally the patient is mostly AAO x 3 but has had periods of confusion in my experience before (This was during the time the patient was on Peritoneal Dialysis). A similar episodes occurred last year where he was admitted to [facility] and this was also when he was converted from PD to HD. Patient is currently awake and is able to remember me. is also at bedside. Sick contacts of 4 year old grandchildren with colds recently. Fevers up to 103.5 F. Given my previous experiences with this patient on prior hospitalizations, I would start antibiotic coverage aggressively. Afebrile so far today. The patient appears more awake and alert. Urinalysis appears to indicate that UTI is the most likely culprit. Blood cultures showing growth of gram positive cocci in pairs. Currently on Meropenem and Vancomycin doses after HD sessions. Objective - Vital Signs/Intake and Output Vital Signs (last 24 hours): Temp Pulse Resp BP Pulse Ox 97.4 F L 87 20 114/62 98 08/14/18 16:27 08/14/18 16:27 08/14/18 16:27 08/14/18 16:27 08/14/18 16:27 Intake and Output: 08/14/18 08/14/18 06:59 18:59 Intake Total 900 480 Balance 900 480 - Medications Medications: Current Medications Acetaminophen (Tylenol 325mg Tab) 650 mg PO Q6H PRN PRN Reason: Fever >100.4 F Last Admin: 08/14/18 10:34 Dose: 650 mg Allopurinol (Zyloprim) 100 mg PO DAILY [facility] Last Admin: 08/14/18 13:54 Dose: 100 mg Aspirin (Ecotrin) 81 mg PO DAILY [facility] Last Admin: 08/14/18 09:57 Dose: 81 mg Atorvastatin Calcium (Lipitor) 20 mg PO DAILY [facility] Last Admin: 08/14/18 09:57 Dose: 20 mg Betamethasone/Clotrimazole (Lotrisone) 0 gm TOP BID [facility] Last Admin: 08/14/18 16:23 Dose: Not Given Calcium Acetate (Phoslo) 1,334 mg PO WM [facility] Last Admin: 08/14/18 14:06 Dose: 1,334 mg Cinacalcet (Sensipar) 30 mg PO DAILY [facility] Last Admin: 08/14/18 09:57 Dose: 30 mg Dextrose (Dextrose 50% Inj) 0 ml IV STAT PRN; Protocol PRN Reason: Hypoglycemia Protocol Gabapentin (Neurontin) 300 mg PO BID PRN; Protocol PRN Reason: Leg cramps Last Admin: 08/14/18 10:34 Dose: 300 mg Heparin Sodium (Porcine) (Heparin) 5,000 units SC Q8 [facility]; Protocol Last Admin: 08/14/18 13:58 Dose: 5,000 units Dextrose (Dextrose 5% In Water 1000 Ml) 1,000 mls @ 0 mls/hr IV .Q0M PRN; Protocol PRN Reason: Hypoglycemia Protocol Meropenem/Sodium Chloride (Merrem Iv 500 Mg/Ns 50 Ml) 500 mg in 50 mls @ 100 mls/hr IVPB Q24H [facility]; Protocol Last Admin: 08/13/18 22:33 Dose: 100 mls/hr Insulin Human Lispro (Humalog Med) 0 units SC ACHS [facility]; Protocol Last Admin: 08/14/18 14:10 Dose: Not Given Lidocaine (Lidoderm) 1 ea TD DAILY [facility] Last Admin: 08/14/18 16:28 Dose: 1 ea Sevelamer HCl (Renagel) 1,600 mg PO TID [facility] Last Admin: 08/14/18 13:55 Dose: 1,600 mg Tamsulosin HCl (Flomax) 0.4 mg PO DAILY [facility] Last Admin: 08/14/18 09:57 Dose: 0.4 mg - Labs Labs: 08/14/18 07:30 08/14/18 07:30 PT 12.3 SECONDS (9.4-12.5) 08/11/18 16:10 INR 1.11 08/11/18 16:10 APTT 34.8 Seconds (26.9-38.3) 08/11/18 16:10 - Constitutional Appears: Non-toxic, No Acute Distress, Chronically Ill - Head Exam Head Exam: ATRAUMATIC, NORMOCEPHALIC - Eye Exam Eye Exam: EOMI, PERRL Pupil Exam: NORMAL ACCOMODATION, PERRL - ENT Exam ENT Exam: Mucous Membranes Moist, Normal External Ear Exam, TM's Normal Bilaterally - Neck Exam Neck Exam: Full ROM, Normal Inspection - Respiratory Exam Respiratory Exam: Clear to Ausculation Bilateral, NORMAL BREATHING PATTERN. absent: Rales, Rhonchi, Wheezes - Cardiovascular Exam Cardiovascular Exam: REGULAR RHYTHM, RRR, +S1, +S2 Additional comments: healed scar from CABG. Right chest wall Permacath. - GI/Abdominal Exam GI & Abdominal Exam: Soft, Normal Bowel Sounds. absent: Distended, Tenderness - Extremities Exam Extremities Exam: Full ROM, Pedal Edema Additional comments: right leg ulcerations currently wrapped in bandages, chronic venous stasis on both lower extremities. - Neurological Exam Neurological Exam: Alert, Awake, CN II-XII Intact, Oriented x3 Neuro motor strength exam: Left Upper Extremity: 0 - Psychiatric Exam Psychiatric exam: Normal Affect - Skin Additional comments: As above. Assessment and Plan - Assessment and Plan (Free Text) Assessment: 67 yo male well known to me on previous hospitalization to [facility]. The patient with generalized weakness, fevers up to 103.5 F, and leukocytosis up to 21. Lactic acid of 2.8. Procalcitonin pending. Patient is a relatively recent convert to HD within the past year. 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 Would obtain cultures of the blood, urine (if present), and of the right leg ulcerations. Would start aggressively on antibiotic coverage with Meropenem instead of Zosyn and give Vancomycin after HD sessions. Monitor glucose levels. Given dose of aminoglycoside at time of admission. Head CT showed no acute changes Chest X-ray showing no acute cardiopulmonary changes. Extremity ultrasound showed no DVT on the left leg but right leg was a limited study but no visualized DVT. Abd/Pel CT pending. Given urinalysis, UTI appears to be the most likely culprit. Awaiting urine cultures. Leg wound culture with MRSA. Blood cultures showing growth of gram positive cocci in pairs identified as Group B Strep. On Meropenem. IV Vancomyc in after HD sessions. Thank you for allowing me to participate in the care of this patient, we will follow with you.
--- NOTE | 2018-08-14 20:38 | PN ---
DATE: 08/14/2018 SUBJECTIVE: The patient is seen lying in bed. He is awake. He is alert. He is comfortable. He still seems a little slow. He complains of severe pain in his feet. PHYSICAL EXAMINATION: GENERAL: Obese elderly male lying in bed. VITAL SIGNS: Blood pressure 107/64, heart rate 86, respiratory rate 18-20, and temperature 98.7. HEENT: Normocephalic and atraumatic. Positive pallor. NECK: Supple. No JVD. LUNGS: Bilateral equal air entry, bilateral rhonchi. No rales. CARDIAC: S1 and S2. Regular rate and rhythm. No murmur. No rub. ABDOMEN: Obese, distended, soft, and nontender. Bowel sounds present. EXTREMITIES: Erythema of the left lower extremity, dressing of the right foot. LABORATORY DATA: WBC 12.4, hemoglobin 11.8, hematocrit 36, and platelets 198. Sodium 136, potassium 6, chloride 96, CO2 of 29, BUN 51, creatinine 9.1, and glucose 86. MEDICATIONS LIST: Reviewed. ASSESSMENT: 1. Sepsis, wound infection, Gram-positive bacteremia. 2. Altered mental status secondary to sepsis. 3. Hyperkalemia. 4. Cellulitis of the lower extremities. 5. Obesity. 6. Secondary hyperparathyroidism. PLAN: 1. Dialysis again today, for 2 hours, use potassium one bath. 2. Ultrafiltrate 1 kg. 3. Continue antibiotics as per ID recommendations. 4. Continue phosphate binders. 5. Physical therapy. Jeannie Balderas MD
[2018-08-14] MEDS: MEROPENEM 500 MG in NS 500 MG/50 ML BAG IVPB SCH (23:15)
[2018-08-15] MEDS: Insulin Lispro (humaLOG) MEDIUM Coverage SC SCH ×4 (07:44→21:33)
[2018-08-15 10:25] LABS: HEMOGLOBIN 11.3 g/dL (14.0-18.0); MEAN CELL VOLUME 102.6 fl (80.0-105.0); MEAN CORPUSCULAR HGB CONC 32.2 g/dl (31.0-37.0); MEAN PLATELET VOLUME 10.3 fl (7.0-11.0); RBC 3.42 10^6/uL (3.5-6.1); RED CELL DISTRIBUTION WIDTH 14.5 % (11.5-14.5); WHITE BLOOD COUNT 10.5 10^3/uL (4.5-11.0)
[2018-08-15 10:42] LABS: ALB/GLOB RATIO 1.3 (1.1-1.8); ALBUMIN 4.3 g/dL (3.0-4.8); CALCIUM 9.7 mg/dL (8.4-10.5)
[2018-08-15] MEDS: Clotrimazole/Betamethasone Cream(15 gm) TOP SCH ×2 (11:26→17:17)
[2018-08-15] MEDS: Lidocaine 5% Patch TD SCH (11:26)
[2018-08-15] MEDS ORDERED: Vancomycin 500mg in NS 500 MG/100 ML BAG IVPB ONE (13:13)
--- NOTE | 2018-08-15 13:44 | CP.PCM.PN ---
<Markos Andre - Last Filed: 08/15/18 13:38> Subjective - Date & Time of Evaluation Date of Evaluation: 08/15/18 Time of Evaluation: 13:38 - Subjective Subjective: Podiatry consult note for Dr. Mcleod, 67 y/o M seen and evaluated in dialysis for right lower extremity wound, and bilateral erythema. Patient states he has numbness and tingling to both feet, denies any pain at this time. Patient denies any other pedal complaints. Objective - Vital Signs/Intake and Output Vital Signs (last 24 hours): Temp Pulse Resp BP Pulse Ox 98.3 F 79 18 100/62 98 08/15/18 08:18 08/15/18 08:18 08/15/18 08:18 08/15/18 08:18 08/15/18 08:18 Intake and Output: 08/15/18 08/15/18 06:59 18:59 Intake Total 360 Balance 360 - Medications Medications: Current Medications Acetaminophen (Tylenol 325mg Tab) 650 mg PO Q6H PRN PRN Reason: Fever >100.4 F Last Admin: 08/15/18 07:56 Dose: 650 mg Allopurinol (Zyloprim) 100 mg PO DAILY [facility] Last Admin: 08/15/18 11:27 Dose: Not Given Aspirin (Ecotrin) 81 mg PO DAILY [facility] Last Admin: 08/15/18 11:26 Dose: Not Given Atorvastatin Calcium (Lipitor) 20 mg PO DAILY [facility] Last Admin: 08/15/18 11:26 Dose: Not Given Betamethasone/Clotrimazole (Lotrisone) 0 gm TOP BID [facility] Last Admin: 08/15/18 11:26 Dose: Not Given Calcium Acetate (Phoslo) 1,334 mg PO WM [facility] Last Admin: 08/15/18 07:46 Dose: 1,334 mg Cinacalcet (Sensipar) 30 mg PO DAILY [facility] Last Admin: 08/15/18 11:27 Dose: Not Given Dextrose (Dextrose 50% Inj) 0 ml IV STAT PRN; Protocol PRN Reason: Hypoglycemia Protocol Gabapentin (Neurontin) 300 mg PO BID PRN; Protocol PRN Reason: Leg cramps Last Admin: 08/15/18 07:57 Dose: 300 mg Heparin Sodium (Porcine) (Heparin) 5,000 units SC Q8 [facility]; Protocol Last Admin: 08/15/18 06:00 Dose: 5,000 units Dextrose (Dextrose 5% In Water 1000 Ml) 1,000 mls @ 0 mls/hr IV .Q0M PRN; Protocol PRN Reason: Hypoglycemia Protocol Vancomycin HCl (Vancomycin 500mg In Ns) 500 mg in 100 mls @ 200 mls/hr IVPB ONCE ONE; Protocol Stop: 08/15/18 13:42 Insulin Human Lispro (Humalog Med) 0 units SC ACHS [facility]; Protocol Last Admin: 08/15/18 11:31 Dose: Not Given Lidocaine (Lidoderm) 1 ea TD DAILY [facility] Last Admin: 08/15/18 11:26 Dose: Not Given Sevelamer HCl (Renagel) 1,600 mg PO TID [facility] Last Admin: 08/15/18 11:27 Dose: Not Given Tamsulosin HCl (Flomax) 0.4 mg PO DAILY [facility] Last Admin: 08/15/18 11:26 Dose: Not Given - Labs Labs: 08/15/18 10:00 08/15/18 10:00 PT 12.3 SECONDS (9.4-12.5) 08/11/18 16:10 INR 1.11 08/11/18 16:10 APTT 34.8 Seconds (26.9-38.3) 08/11/18 16:10 - Constitutional Appears: Well, Non-toxic, No Acute Distress - Head Exam Head Exam: ATRAUMATIC, NORMOCEPHALIC - Extremities Exam Additional comments: Bilateral Lower Extremity Exam VASC: DP and PT 2/4 palpable bilaterally, CFT less than 3 seconds, TG warm to warm, increased on the right lower extremity, minimal swelling noted to bialteral lower legs NEURO: grossly intact DERM: superficial wounds noted to the medial aspect of the right leg, 100% granular wound base with 0.1 cm depth, no malodor, no drainage, no tunneling, no tracking, no probe to bone, positive maria de jesus-wound erythema from the ankle to the level of the knee R >L ORTHO: pain on palpation to the right leg at the site of the wounds, MSK 5/5 - Neurological Exam Neurological Exam: Alert, Awake, Oriented x3 - Psychiatric Exam Psychiatric exam: Normal Affect, Normal Mood Assessment and Plan - Assessment and Plan (Free Text) Assessment: 67 y/o male seen and evaluated for bilateral LE erythema, and wound to the RLE Plan: Patient was seen and evaluated with Dr. Mcleod Plan was discussed Chart, labs and vitals were reviewed- afebrile at this time, positive leukocytosis at 13.8 Patient Un[place] Boot sury, dry and intact, will change on Saturday Unnaboots and Coban ordered for pharmacy to be kept at bedside LE US: negative for DVT Lotrisone for B/L LE BELLE/PVR to assess vascular flow: normal resting BELLE, mild tibial disease Infectious disease on board, continue IV Abx Podiatry will continue to follow patient while in house Thank you for the Podiatry consult <Andres Mcleod - Last Filed: 08/15/18 17:45> Objective - Vital Signs/Intake and Output Vital Signs (last 24 hours): Temp Pulse Resp BP Pulse Ox 98.3 F 83 20 102/60 95 08/15/18 17:22 08/15/18 17:22 08/15/18 17:22 08/15/18 17:22 08/15/18 17:22 Intake and Output: 08/15/18 08/15/18 06:59 18:59 Intake Total 360 Balance 360 - Medications Medications: Current Medications Acetaminophen (Tylenol 325mg Tab) 650 mg PO Q6H PRN PRN Reason: Fever >100.4 F Last Admin: 08/15/18 07:56 Dose: 650 mg Allopurinol (Zyloprim) 100 mg PO DAILY [facility] Last Admin: 08/15/18 11:27 Dose: Not Given Aspirin (Ecotrin) 81 mg PO DAILY [facility] Last Admin: 08/15/18 11:26 Dose: Not Given Atorvastatin Calcium (Lipitor) 20 mg PO DAILY [facility] Last Admin: 08/15/18 11:26 Dose: Not Given Betamethasone/Clotrimazole (Lotrisone) 0 gm TOP BID [facility] Last Admin: 08/15/18 17:17 Dose: Not Given Calcium Acetate (Phoslo) 1,334 mg PO WM [facility] Last Admin: 08/15/18 17:17 Dose: 1,334 mg Cinacalcet (Sensipar) 30 mg PO DAILY [facility] Last Admin: 08/15/18 11:27 Dose: Not Given Dextrose (Dextrose 50% Inj) 0 ml IV STAT PRN; Protocol PRN Reason: Hypoglycemia Protocol Gabapentin (Neurontin) 300 mg PO BID PRN; Protocol PRN Reason: Leg cramps Last Admin: 08/15/18 07:57 Dose: 300 mg Heparin Sodium (Porcine) (Heparin) 5,000 units SC Q8 [facility]; Protocol Last Admin: 08/15/18 14:43 Dose: 5,000 units Dextrose (Dextrose 5% In Water 1000 Ml) 1,000 mls @ 0 mls/hr IV .Q0M PRN; Protocol PRN Reason: Hypoglycemia Protocol Insulin Human Lispro (Humalog Med) 0 units SC ACHS [facility]; Protocol Last Admin: 08/15/18 17:16 Dose: Not Given Lidocaine (Lidoderm) 1 ea TD DAILY [facility] Last Admin: 08/15/18 11:26 Dose: Not Given Sevelamer HCl (Renagel) 1,600 mg PO TID [facility] Last Admin: 08/15/18 17:17 Dose: 1,600 mg Tamsulosin HCl (Flomax) 0.4 mg PO DAILY [facility] Last Admin: 08/15/18 11:26 Dose: Not Given - Labs Labs: 08/15/18 10:00 08/15/18 10:00 PT 12.3 SECONDS (9.4-12.5) 08/11/18 16:10 INR 1.11 08/11/18 16:10 APTT 34.8 Seconds (26.9-38.3) 08/11/18 16:10 Attending/Attestation - Attestation I have personally seen and examined this patient.: Yes I have fully participated in the care of the patient.: Yes I have reviewed all pertinent clinical information, including history, physical exam and plan: Yes
--- NOTE | 2018-08-15 15:31 | PN ---
DATE: 08/15/2018 SUBJECTIVE: The patient is seen in the dialysis unit. He is awake, he is alert, he is comfortable. PHYSICAL EXAMINATION GENERAL: Elderly male lying in bed in the dialysis unit. VITAL SIGNS: Blood pressure 114/62, heart rate 87, respiratory rate 18-20, temperature 98.3. HEENT: Normocephalic, atraumatic, positive pallor. NECK: Supple, no JVD. LUNGS: Bilateral equal air entry, bilateral equal expansion, no rales. CARDIAC: S1, S2, regular rate and rhythm, no murmur, no rub. ABDOMEN: Obese, distended, soft, nontender, bowel sounds present. EXTREMITIES: No lower extremity edema. INTAKE AND OUTPUT: Not charted. LABORATORY DATA: WBC 10.5, hemoglobin 11, hematocrit 35, platelets 189. Sodium 138, potassium 4.0, chloride 97, CO2 of 30, BUN 34, creatinine 5.9, glucose 117, calcium 9.7, AST 24, ALT 18. Blood culture, beta-hemolytic strep; wound culture, MRSA. Echocardiogram; technically limited study, left ventricular size and systolic function appear to be within normal limits. Moderate concentric LVH, mild TR. CURRENT MEDICATIONS: Ecotrin, Flomax, Lidoderm, gabapentin, PhosLo 2 tablets three times a day with meals, Renagel 1600 mg t.i.d. with meals, Sensipar 30 mg, allopurinol 100 mg, meropenem 500 mg every 24 hours. ASSESSMENT 1. Sepsis, wound infection, gram-positive bacteremia. 2. Altered mental status secondary to sepsis, now improved. 3. Noninsulin-dependent diabetes mellitus. 4. Hypertension. 5. End-stage renal disease. 6. Lower extremity cellulitis. PLAN 1. Continue antibiotics as per ID recommendations. 2. Dialysis today, stable. 3. Continue meropenem and vancomycin as per ID recommendations. Jeannie Balderas MD
--- NOTE | 2018-08-15 19:20 | CP.PCM.PN ---
<Kvng Johnson - Last Filed: 08/15/18 19:17> Subjective - Date & Time of Evaluation Date of Evaluation: 08/15/18 Time of Evaluation: 08:00 - Subjective Subjective: Kvng Johnson PGY1 Medicine Progress Note for Dr. Reyes Patient was seen and examined at bedside this morning. Vital signs are stable. Patient will be going for HD after interview. Patient is feeling better. No adverse overnight events. Denies fevers, chills, shortness of breath, chest pain, n/v/d, palpitations. A full 12 point ROS was conducted and unremarkable except as stated above. Objective - Vital Signs/Intake and Output Vital Signs (last 24 hours): Temp Pulse Resp BP Pulse Ox 98.3 F 83 20 102/60 95 08/15/18 17:22 08/15/18 17:22 08/15/18 17:22 08/15/18 17:22 08/15/18 17:22 - Medications Medications: Current Medications Acetaminophen (Tylenol 325mg Tab) 650 mg PO Q6H PRN PRN Reason: Fever >100.4 F Last Admin: 08/15/18 07:56 Dose: 650 mg Allopurinol (Zyloprim) 100 mg PO DAILY [facility] Last Admin: 08/15/18 11:27 Dose: Not Given Aspirin (Ecotrin) 81 mg PO DAILY [facility] Last Admin: 08/15/18 11:26 Dose: Not Given Atorvastatin Calcium (Lipitor) 20 mg PO DAILY [facility] Last Admin: 08/15/18 11:26 Dose: Not Given Betamethasone/Clotrimazole (Lotrisone) 0 gm TOP BID [facility] Last Admin: 08/15/18 17:17 Dose: Not Given Calcium Acetate (Phoslo) 1,334 mg PO WM [facility] Last Admin: 08/15/18 17:17 Dose: 1,334 mg Cinacalcet (Sensipar) 30 mg PO DAILY [facility] Last Admin: 08/15/18 11:27 Dose: Not Given Dextrose (Dextrose 50% Inj) 0 ml IV STAT PRN; Protocol PRN Reason: Hypoglycemia Protocol Gabapentin (Neurontin) 300 mg PO BID PRN; Protocol PRN Reason: Leg cramps Last Admin: 08/15/18 07:57 Dose: 300 mg Heparin Sodium (Porcine) (Heparin) 5,000 units SC Q8 [facility]; Protocol Last Admin: 08/15/18 14:43 Dose: 5,000 units Dextrose (Dextrose 5% In Water 1000 Ml) 1,000 mls @ 0 mls/hr IV .Q0M PRN; Protocol PRN Reason: Hypoglycemia Protocol Insulin Human Lispro (Humalog Med) 0 units SC ACHS [facility]; Protocol Last Admin: 08/15/18 17:16 Dose: Not Given Lidocaine (Lidoderm) 1 ea TD DAILY [facility] Last Admin: 08/15/18 11:26 Dose: Not Given Sevelamer HCl (Renagel) 1,600 mg PO TID [facility] Last Admin: 08/15/18 17:17 Dose: 1,600 mg Tamsulosin HCl (Flomax) 0.4 mg PO DAILY [facility] Last Admin: 08/15/18 11:26 Dose: Not Given - Labs Labs: 08/15/18 10:00 08/15/18 10:00 PT 12.3 SECONDS (9.4-12.5) 08/11/18 16:10 INR 1.11 08/11/18 16:10 APTT 34.8 Seconds (26.9-38.3) 08/11/18 16:10 - Head Exam Head Exam: ATRAUMATIC, NORMAL INSPECTION, NORMOCEPHALIC - Eye Exam Eye Exam: EOMI, Normal appearance - ENT Exam ENT Exam: Mucous Membranes Moist - Respiratory Exam Respiratory Exam: Clear to Ausculation Bilateral, NORMAL BREATHING PATTERN. absent: Rales, Rhonchi, Wheezes - Cardiovascular Exam Cardiovascular Exam: REGULAR RHYTHM, +S1, +S2 - GI/Abdominal Exam GI & Abdominal Exam: Soft, Normal Bowel Sounds. absent: Tenderness - Extremities Exam Extremities Exam: Full ROM, Normal Capillary Refill, Normal Inspection. absent: Joint Swelling, Pedal Edema Additional comments: Right lower extremity dressing is in place for wound ulcers. No pitting edema of the lower ext. - Neurological Exam Neurological Exam: Alert, Awake, CN II-XII Intact, Normal Gait, Oriented x3 - Psychiatric Exam Psychiatric exam: Normal Affect, Normal Mood - Skin Skin Exam: Dry, Intact, Normal Color, Warm Assessment and Plan - Assessment and Plan (Free Text) Assessment: Patient is a 67 y/o M with PMHx Anemia, HTN, ESRD on HD (MW), CAD (s/p stent placement 2007), TIA (1985), DM who presented to the ED for weakness and AMS after HD treatment. Patient admitted for Toxic Metabolic Encephalopathy due to Sepsis 2/2 Bacteremia and R-LE Wound. Plan: Hyperkalemia and Worsening Renal Function with Hx ESRD (MWF) - s/p HD session today - K was 4.0 after HD; Cr downtrending - Nephro on consult (Dr. Garcia). Recs appreciated. - c/w home med cinacalcet - c/w phoslo, Renagel Toxic Metabolic Encephalopathy due to Sepsis 2/2 Bacteremia and R-LE Wound - resolved - As per ID recs, c/w vanco during HD sessions - repeat blood cx negative x2 prelim results - Right LE wound culture +MRSA - Blood Cx: +beta hemolytic strep - Echo (08/14): EF 56.9%. Moderate LVH. - ID is on consult (Dr. Fitzpatrick). Recs appreciated. - c/w wound care, [place] boot, and podiatry recs - Lower extremity BELLE (08/12): normal resting BELLE. Mild tibial disease. - CT Abdomen w/o contrast (08/11): no acute intra-abdominal findings - Podiatry on consult (Dr. Vu). Recs appreciated. - Neurology (Dr. Birmingham) was on consult to r/o stroke. Given normal Head CT and improved mental status, less likely stroke. No further neuro recs. Hx Gout - c/w home med allopurinol 100mg daily Hx CAD s/p CABG - c/w home lipitor and ASA Hx DM - ISS (med) - Accuchecks - c/w home med gabapentin Hx HTN - normotensive - Patient no longer taking his home BP meds Hx BPH - c/w home med flomax Diet: Renal Diet DVT ppx: Hep sc PT is on board. Dispo: Continue to monitor patient. Anticipate discharge once hyperkalemia and renal function improves with HD sessions. Case was discussed and reviewed with Attending Physician, Dr. Reyes. <Kassie Reyes - Last Filed: 08/16/18 16:10> Objective - Vital Signs/Intake and Output Vital Signs (last 24 hours): Temp Pulse Resp BP Pulse Ox 97.8 F 84 18 117/70 97 08/16/18 06:00 08/16/18 06:00 08/16/18 06:00 08/16/18 06:00 08/16/18 06:00 Intake and Output: 08/16/18 08/16/18 06:59 18:59 Intake Total 940 Balance 940 - Medications Medications: Current Medications Acetaminophen (Tylenol 325mg Tab) 650 mg PO Q6H PRN PRN Reason: Fever >100.4 F Last Admin: 08/15/18 07:56 Dose: 650 mg Allopurinol (Zyloprim) 100 mg PO DAILY [facility] Last Admin: 08/16/18 11:21 Dose: 100 mg Aspirin (Ecotrin) 81 mg PO DAILY [facility] Last Admin: 08/16/18 11:16 Dose: 81 mg Atorvastatin Calcium (Lipitor) 20 mg PO DAILY [facility] Last Admin: 08/16/18 11:19 Dose: 20 mg Betamethasone/Clotrimazole (Lotrisone) 0 gm TOP BID [facility] Last Admin: 08/16/18 11:20 Dose: Not Given Calcium Acetate (Phoslo) 1,334 mg PO WM [facility] Last Admin: 08/16/18 14:02 Dose: 1,334 mg Cinacalcet (Sensipar) 30 mg PO DAILY [facility] Last Admin: 08/16/18 11:21 Dose: 30 mg Dextrose (Dextrose 50% Inj) 0 ml IV STAT PRN; Protocol PRN Reason: Hypoglycemia Protocol Gabapentin (Neurontin) 300 mg PO BID PRN; Protocol PRN Reason: Leg cramps Last Admin: 08/15/18 21:33 Dose: 300 mg Heparin Sodium (Porcine) (Heparin) 5,000 units SC Q8 [facility]; Protocol Last Admin: 08/16/18 14:01 Dose: 5,000 units Dextrose (Dextrose 5% In Water 1000 Ml) 1,000 mls @ 0 mls/hr IV .Q0M PRN; Protocol PRN Reason: Hypoglycemia Protocol Insulin Human Lispro (Humalog Med) 0 units SC ACHS [facility]; Protocol Last Admin: 08/16/18 14:00 Dose: Not Given Lidocaine (Lidoderm) 1 ea TD DAILY [facility] Last Admin: 08/16/18 11:17 Dose: 1 ea Sevelamer HCl (Renagel) 1,600 mg PO TID [facility] Last Admin: 08/16/18 14:03 Dose: 1,600 mg Tamsulosin HCl (Flomax) 0.4 mg PO DAILY [facility] Last Admin: 08/16/18 11:16 Dose: 0.4 mg - Labs Labs: 08/16/18 06:20 08/16/18 06:20 PT 12.3 SECONDS (9.4-12.5) 08/11/18 16:10 INR 1.11 08/11/18 16:10 APTT 34.8 Seconds (26.9-38.3) 08/11/18 16:10 Attending/Attestation - Attestation I have personally seen and examined this patient.: Yes I have fully participated in the care of the patient.: Yes I have reviewed all pertinent clinical information, including history, physical exam and plan: Yes Notes (Text): Patient seen and examined by me with resident at 11:10 AM on 08/15/18 in dialysis. Case including HPI, physical exam, and assessment and plan discussed with resident. Agree with above with following additions/corrections. Patient is a 67-year-old male with past medical history significant for anemia, hypertension (now off medications), end-stage renal disease on dialysis M/W/F, coronary artery disease status post CABG, TIA, hyperlipidemia, gout, and right lower extremity cellulitis and infections status post multiple antibiotic treatments that presented to the emergency room with altered mental status. Patient states he is feeling ok. Feels tired as he is having dialysis. Patient denies abdominal pain. No nausea or vomiting. No chest pain or shortness of breath. No headaches or dizziness. No fevers or chills. No dysuria. No diarrhea. Physical exam General: Awake and alert lying in bed in no acute distress HEENT: Normocephalic, atraumatic. Extraocular muscles intact, pupils equal and reactive, no scleral icterus. Oropharynx is pink and moist. No pharyngeal erythema or exudate appreciated. Neck is supple. Cardiovascular: Normal rhythm. Normal S1 and S2. No murmurs, rubs, or gallops appreciated Pulmonary: Normal respiratory effort. No rhonchi, rales, or wheezing appreciated. Gastrointestinal: Soft, nondistended. Nontender. Positive bowel sounds all 4 quadrants. No guarding. Musculoskeletal: Moves all extremities. No calf tenderness. Bilateral lower extremity with pitting edema. Right lower extremity with [place] Boot. Left lower extremity with erythema below knee to foot (chronic per patient and ). Mike ateral toes with erythema and purplish discoloration (also chronic). Central nervous system: AAOx3, CN 2-12 grossly intact. Dermatologic: Skin warm and dry. Assessment and plan: Patient is a 67-year-old male with past medical history significant for anemia, hypertension (now off medications), end-stage renal disease on dialysis M/W/F, coronary artery disease status post CABG, TIA, hyperlipidemia, gout, and right lower extremity cellulitis and infections status post multiple antibiotic treatments that presented to the emergency room with altered mental status. 1. Sepsis. Resolved. Leukocytosis resolved. Afebrile. Continue vancomycin after dialysis. ID following, recommendations appreciated. One blood culture positive for gram positive for beta hemolytic strep group B. Wound culture positive for MRSA. Repeat blood cultures negative x 24 hours. Procalcitonin 1.58. 2D echo per sales and business development manager showed technically limited study, LV size and systolic function appear to be within normal limits, moderate concentric LVH, mild TR. 2. Toxic metabolic encephalopathy. Likely secondary to sepsis. Resolved. Code stroke was called in the emergency room. Neurology recommendations appreicated. CT head per radiologist showed no acute intracranial abnormalities, no significant findings to account for the clinical presentation. 2-D echo as above. Continue supportive care. Ammonia 23. 3. Left-sided abdominal pain. Resolved. CT abd/pelvis per radiologist showed no acute intra-abdominal finiding. 4. Hyperkalemia. Resolved. Continue to monitor. 5. End-stage renal disease on dialysis. Patient is on dialysis Saturday/Saturday/Saturday. Nephrology following, recommendations appreciated. Patient getting dialysis today. Continue home sensipar, renagel, and phoslo. 6. Right lower extremity chronic infection. Continue with [place] boot. Podiatry following, recommendations appreciated. Bilateral lower extremity dopplers negative for DVT. Bilateral lower extremity BELLE exam per radiologist shows normal resting ABIs, possible mild symmetric tibial disease. Wound culture positive for MRSA. Continue antibiotics per ID. 7. Coronary artery disease status post CABG. Continue home lipitor and ASA. 8. Hyperlipidemia. Continue Lipitor 9. Type 2 diabetes. Patient takes Januvia at home. Continue insulin sliding scale. Continue to monitor Accu-Cheks. 10. Gout. No acute issues currently. Continue home allopurinol. 11. DVT prophylaxis. Heparin 12. Patient is a full code. Case discussed in detail with the patient regarding current diagnosis and treatment plan. All questions answered.
--- NOTE | 2018-08-15 19:54 | CP.PCM.PN ---
Subjective - Date & Time of Evaluation Date of Evaluation: 08/15/18 Time of Evaluation: 17:45 - Subjective Subjective: Infectious Disease Follow Up: August 15, 2018 67 yo male well known to me from multiple previous hospitalizations at [facility] in the past year. PMHx includes Anemia, HTN, ESRD on HD (MW), CAD (s/p s tent placement 2007), TIA (1985), DM. The patient presented to the ED for weakness and AMS after HD treatment. Dialysis center called EMS. In ER he was found to be febrile to 103.5 F. He was AAO x 1. Normally the patient is mostly AAO x 3 but has had periods of confusion in my experience before (This was during the time the patient was on Peritoneal Dialysis). A similar episodes occurred last year where he was admitted to [facility] and this was also when he was converted from PD to HD. Patient is currently awake and is able to remember me. is also at bedside. Sick contacts of 4 year old grandchildren with colds recently. Fevers up to 103.5 F. Given my previous experiences with this patient on prior hospitalizations, I would start antibiotic coverage aggressively. Afebrile so far today. The patient appears more awake and alert. Urinalysis appears to indicate that UTI is the most likely culprit. Blood cultures showing growth of gram positive cocci in pairs. Currently on Meropenem and Vancomycin doses after HD sessions. Objective - Vital Signs/Intake and Output Vital Signs (last 24 hours): Temp Pulse Resp BP Pulse Ox 98.3 F 83 20 102/60 95 08/15/18 17:22 08/15/18 17:22 08/15/18 17:22 08/15/18 17:22 08/15/18 17:22 Intake and Output: 08/15/18 08/16/18 18:59 06:59 Intake Total 940 Balance 940 - Medications Medications: Current Medications Acetaminophen (Tylenol 325mg Tab) 650 mg PO Q6H PRN PRN Reason: Fever >100.4 F Last Admin: 08/15/18 07:56 Dose: 650 mg Allopurinol (Zyloprim) 100 mg PO DAILY [facility] Last Admin: 08/15/18 11:27 Dose: Not Given Aspirin (Ecotrin) 81 mg PO DAILY [facility] Last Admin: 08/15/18 11:26 Dose: Not Given Atorvastatin Calcium (Lipitor) 20 mg PO DAILY [facility] Last Admin: 08/15/18 11:26 Dose: Not Given Betamethasone/Clotrimazole (Lotrisone) 0 gm TOP BID [facility] Last Admin: 08/15/18 17:17 Dose: Not Given Calcium Acetate (Phoslo) 1,334 mg PO WM [facility] Last Admin: 08/15/18 17:17 Dose: 1,334 mg Cinacalcet (Sensipar) 30 mg PO DAILY [facility] Last Admin: 08/15/18 11:27 Dose: Not Given Dextrose (Dextrose 50% Inj) 0 ml IV STAT PRN; Protocol PRN Reason: Hypoglycemia Protocol Gabapentin (Neurontin) 300 mg PO BID PRN; Protocol PRN Reason: Leg cramps Last Admin: 08/15/18 07:57 Dose: 300 mg Heparin Sodium (Porcine) (Heparin) 5,000 units SC Q8 [facility]; Protocol Last Admin: 08/15/18 14:43 Dose: 5,000 units Dextrose (Dextrose 5% In Water 1000 Ml) 1,000 mls @ 0 mls/hr IV .Q0M PRN; Protocol PRN Reason: Hypoglycemia Protocol Insulin Human Lispro (Humalog Med) 0 units SC ACHS [facility]; Protocol Last Admin: 08/15/18 17:16 Dose: Not Given Lidocaine (Lidoderm) 1 ea TD DAILY [facility] Last Admin: 08/15/18 11:26 Dose: Not Given Sevelamer HCl (Renagel) 1,600 mg PO TID [facility] Last Admin: 08/15/18 17:17 Dose: 1,600 mg Tamsulosin HCl (Flomax) 0.4 mg PO DAILY [facility] Last Admin: 08/15/18 11:26 Dose: Not Given - Labs Labs: 08/15/18 10:00 08/15/18 10:00 PT 12.3 SECONDS (9.4-12.5) 08/11/18 16:10 INR 1.11 08/11/18 16:10 APTT 34.8 Seconds (26.9-38.3) 08/11/18 16:10 - Constitutional Appears: Non-toxic, No Acute Distress, Chronically Ill - Head Exam Head Exam: ATRAUMATIC, NORMOCEPHALIC - Eye Exam Eye Exam: EOMI, PERRL Pupil Exam: NORMAL ACCOMODATION, PERRL - ENT Exam ENT Exam: Mucous Membranes Moist, Normal External Ear Exam, TM's Normal Bilaterally - Neck Exam Neck Exam: Full ROM, Normal Inspection - Respiratory Exam Respiratory Exam: Clear to Ausculation Bilateral, NORMAL BREATHING PATTERN. absent: Rales, Rhonchi, Wheezes - Cardiovascular Exam Cardiovascular Exam: REGULAR RHYTHM, RRR, +S1, +S2 Additional comments: healed scar from CABG. Right chest wall Permacath. - GI/Abdominal Exam GI & Abdominal Exam: Soft, Normal Bowel Sounds. absent: Distended, Tenderness - Extremities Exam Extremities Exam: Full ROM, Pedal Edema Additional comments: right leg ulcerations currently wrapped in bandages, chronic venous stasis on both lower extremities. - Neurological Exam Neurological Exam: Alert, Awake, CN II-XII Intact, Oriented x3 - Psychiatric Exam Psychiatric exam: Normal Affect, Normal Mood - Skin Additional comments: As above. Assessment and Plan - Assessment and Plan (Free Text) Assessment: 67 yo male well known to me on previous hospitalization to [facility]. The patient with generalized weakness, fevers up to 103.5 F, and leukocytosis up to 21. Lactic acid of 2.8. Procalcitonin pending. Patient is a relatively recent convert to HD within the past year. 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 Would obtain cultures of the blood, urine (if present), and of the right leg ulcerations. Would start aggressively on antibiotic coverage with Meropenem instead of Zosyn and give Vancomycin after HD sessions. Monitor glucose levels. Given dose of aminoglycoside at time of admission. Head CT showed no acute changes Chest X-ray showing no acute cardiopulmonary changes. Extremity ultrasound showed no DVT on the left leg but right leg was a limited study but no visualized DVT. Abd/Pel CT pending. Given urinalysis, UTI appears to be the most likely culprit. Awaiting urine cultures. Leg wound culture with MRSA. Blood cultures showing growth of gram positive cocci in pairs identified as Group B Strep. Completed Meropenem. IV Vancomycin after HD sessions. Thank you for allowing me to participate in the care of this patient, we will follow with you.
[2018-08-16 07:01] LABS: HEMOGLOBIN 12.3 g/dL (14.0-18.0); MEAN CELL VOLUME 102.4 fl (80.0-105.0); MEAN CORPUSCULAR HEMOGLOBIN 33.2 pg (25.0-35.0); MEAN CORPUSCULAR HGB CONC 32.5 g/dl (31.0-37.0); MEAN PLATELET VOLUME 10.4 fl (7.0-11.0); RBC 3.7 10^6/uL (3.5-6.1); RED CELL DISTRIBUTION WIDTH 14.6 % (11.5-14.5); WHITE BLOOD COUNT 11.3 10^3/uL (4.5-11.0)
--- NOTE | 2018-08-16 07:15 | CP.PCM.PN ---
<Cassidy Meyer - Last Filed: 08/16/18 08:38> Subjective - Date & Time of Evaluation Date of Evaluation: 08/16/18 Time of Evaluation: 07:15 - Subjective Subjective: Podiatry consult note: Dr. Mcleod 67M seen and evaluated for right lower extremity wound and bilateral erythema; resolving. Patient AAOx3 and in NAD. No acute events overnight. Denies nausea/vomiting/fever/shortness of breath/chest pains. Objective - Vital Signs/Intake and Output Vital Signs (last 24 hours): Temp Pulse Resp BP Pulse Ox 98.3 F 83 20 102/60 95 08/15/18 17:22 08/15/18 17:22 08/15/18 17:22 08/15/18 17:22 08/15/18 17:22 Intake and Output: 08/16/18 08/16/18 06:59 18:59 Intake Total 940 Balance 940 - Medications Medications: Current Medications Acetaminophen (Tylenol 325mg Tab) 650 mg PO Q6H PRN PRN Reason: Fever >100.4 F Last Admin: 08/15/18 07:56 Dose: 650 mg Allopurinol (Zyloprim) 100 mg PO DAILY [facility] Last Admin: 08/15/18 11:27 Dose: Not Given Aspirin (Ecotrin) 81 mg PO DAILY [facility] Last Admin: 08/15/18 11:26 Dose: Not Given Atorvastatin Calcium (Lipitor) 20 mg PO DAILY [facility] Last Admin: 08/15/18 11:26 Dose: Not Given Betamethasone/Clotrimazole (Lotrisone) 0 gm TOP BID [facility] Last Admin: 08/15/18 17:17 Dose: Not Given Calcium Acetate (Phoslo) 1,334 mg PO WM [facility] Last Admin: 08/15/18 17:17 Dose: 1,334 mg Cinacalcet (Sensipar) 30 mg PO DAILY [facility] Last Admin: 08/15/18 11:27 Dose: Not Given Dextrose (Dextrose 50% Inj) 0 ml IV STAT PRN; Protocol PRN Reason: Hypoglycemia Protocol Gabapentin (Neurontin) 300 mg PO BID PRN; Protocol PRN Reason: Leg cramps Last Admin: 08/15/18 21:33 Dose: 300 mg Heparin Sodium (Porcine) (Heparin) 5,000 units SC Q8 [facility]; Protocol Last Admin: 08/16/18 05:59 Dose: 5,000 units Dextrose (Dextrose 5% In Water 1000 Ml) 1,000 mls @ 0 mls/hr IV .Q0M PRN; Protocol PRN Reason: Hypoglycemia Protocol Insulin Human Lispro (Humalog Med) 0 units SC ACHS [facility]; Protocol Last Admin: 08/15/18 21:33 Dose: Not Given Lidocaine (Lidoderm) 1 ea TD DAILY [facility] Last Admin: 08/15/18 11:26 Dose: Not Given Sevelamer HCl (Renagel) 1,600 mg PO TID [facility] Last Admin: 08/15/18 17:17 Dose: 1,600 mg Tamsulosin HCl (Flomax) 0.4 mg PO DAILY [facility] Last Admin: 08/15/18 11:26 Dose: Not Given - Labs Labs: 08/16/18 06:20 08/15/18 10:00 PT 12.3 SECONDS (9.4-12.5) 08/11/18 16:10 INR 1.11 08/11/18 16:10 APTT 34.8 Seconds (26.9-38.3) 08/11/18 16:10 - Constitutional Appears: Non-toxic, No Acute Distress - Head Exam Head Exam: ATRAUMATIC, NORMOCEPHALIC - Eye Exam Eye Exam: Normal appearance - Extremities Exam Additional comments: Bilateral Lower Extremity Exam VASC: DP and PT 2/4 palpable bilaterally, CFT less than 3 seconds, TG warm to warm, increased on the right lower extremity, minimal edema noted to bilateral lower legs NEURO: grossly intact DERM: superficial ulceration noted to the medial aspect of the right leg, 100% granular wound base with 0.1 cm depth, no malodor, no drainage, no tunneling, no tracking, no probe to bone, positive maria de jesus-wound erythema from the ankle to the level of the knee R >L. Ulceration stable, no clinical signs of infection at this time ORTHO: Tenderness upon palpation of the right leg maria de jesus-wound, MSK 5/5 - Neurological Exam Neurological Exam: Alert, Awake, Oriented x3 - Psychiatric Exam Psychiatric exam: Normal Affect, Normal Mood Assessment and Plan - Assessment and Plan (Free Text) Assessment: 67M with right lower extremity wound and bilateral erythema; stable Plan: Patient was seen and evaluated with Dr. Mcleod Afebrile, WBC 11.3 LE US: negative for DVT Lotrisone for B/L LE Local wound care to LE ulceration; maxorb, DSD. UNNA boot applied to lower extremity, patient to leave dressing C/D/I BELLE/PVR to assess vascular flow: normal resting BELLE, mild tibial disease ID on board, continue IV Abx <Francisco Javier Mcleoddonnell - Last Filed: 08/18/18 09:05> Objective - Vital Signs/Intake and Output Vital Signs (last 24 hours): Temp Pulse Resp BP Pulse Ox 97.8 F 84 18 117/70 97 08/16/18 06:00 08/16/18 06:00 08/16/18 06:00 08/16/18 06:00 08/16/18 06:00 - Labs Labs: 08/16/18 06:20 08/16/18 06:20 PT 12.3 SECONDS (9.4-12.5) 08/11/18 16:10 INR 1.11 08/11/18 16:10 APTT 34.8 Seconds (26.9-38.3) 08/11/18 16:10 Attending/Attestation - Attestation I have personally seen and examined this patient.: Yes I have fully participated in the care of the patient.: Yes I have reviewed all pertinent clinical information, including history, physical exam and plan: Yes
[2018-08-16 07:45] LABS: ALB/GLOB RATIO 1.3 (1.1-1.8); ALBUMIN 4.6 g/dL (3.0-4.8); CALCIUM 10.4 mg/dL (8.4-10.5)
[2018-08-16] MEDS: Insulin Lispro (humaLOG) MEDIUM Coverage SC SCH ×2 (09:10→14:00)
[2018-08-16 09:12] VITALS: BP 117/70; PULSE 84; RESP 18; TEMP 97.8; O2SAT 97
[2018-08-16] MEDS: Lidocaine 5% Patch TD SCH (11:17)
[2018-08-16] MEDS: Clotrimazole/Betamethasone Cream(15 gm) TOP SCH (11:20)
--- NOTE | 2018-08-16 17:15 | CP.PCM.DIS ---
Provider - Provider Date of Admission: 08/11/18 17:36 Attending physician: Kassie Reyes DO Primary care physician: Reanna Jaramillo MD Consults: 08/11/18 15:44 Stroke Team Consult Stat Comment: Consulting Provider: Neurohospitalist Consulting Physician: NEUROHOSP Neurohospitalist for Consult: Jeevan Birmingham Neurohospitalist for Consult: Lokesh Sanderson Reason for Consult: ams 08/11/18 17:46 Physician Consult Routine Comment: Consulting Provider: Marguerite Vu Consulting Physician: Marguerite Vu Reason for Consult: bilateral lower ext cellulitis Physician Consult Routine Comment: Consulting Provider: Reinaldo Fitzpatrick Consulting Physician: Reinaldo Fitzpatrick Reason for Consult: sepsis 08/11/18 17:47 Physician Consult Routine Comment: Consulting Provider: Marybeth Clark Consulting Physician: Marybeth Clark Reason for Consult: sepsis 08/11/18 17:48 Physician Consult Routine Comment: Consulting Provider: Lobito Garcia Consulting Physician: Lobito Garcia Reason for Consult: ESRD on HD 08/12/18 01:17 Nursing Referral for Wound Care Routine Comment: Physician Instructions: Reason For Exam: EVALUATION Time Spent in preparation of Discharge (in minutes): 35 Hospital Course - Lab Results Lab Results: Micro Results 08/11/18 16:10 Blood Blood Culture - Final NO GROWTH AFTER 5 DAYS 08/11/18 16:10 Blood Gram Stain - Final TEST NOT PERFORMED 08/14/18 13:25 Blood-Venous Blood Culture - Preliminary NO GROWTH AFTER 48 HOURS 08/14/18 13:10 Blood-Venous Blood Culture - Preliminary NO GROWTH AFTER 48 HOURS 08/11/18 16:36 Blood S.aureus & Coag-Neg Staph PNA FISH - Final TEST NOT PERFORMED 08/11/18 16:36 Blood Blood Culture - Final Beta Hemolytic Strep Group B 08/11/18 16:36 Blood Gram Stain - Final 08/12/18 10:20 Leg - Right Gram Stain - Final 08/12/18 10:20 Leg - Right Wound Culture - Final Methicillin Resistant S Aureus 08/11/18 16:26 Urine,Clean Catch Urine Culture - Final No Growth (<1,000 CFU/ML) Most Recent Lab Values WBC 11.3 10^3/uL (4.5-11.0) H 08/16/18 06:20 RBC 3.70 10^6/uL (3.5-6.1) 08/16/18 06:20 Hgb 12.3 g/dL (14.0-18.0) L 08/16/18 06:20 Hct 37.9 % (42.0-52.0) L 08/16/18 06:20 MCV 102.4 fl (80.0-105.0) 08/16/18 06:20 MCH 33.2 pg (25.0-35.0) 08/16/18 06:20 MCHC 32.5 g/dl (31.0-37.0) 08/16/18 06:20 RDW 14.6 % (11.5-14.5) H 08/16/18 06:20 Plt Count 214 10^3/uL (120.0-450.0) 08/16/18 06:20 MPV 10.4 fl (7.0-11.0) 08/16/18 06:20 Neut % (Auto) 62.0 % (50.0-68.0) 08/14/18 07:30 Lymph % (Auto) 26.2 % (22.0-35.0) 08/14/18 07:30 [place] % (Auto) 7.7 % (1.0-6.0) H 08/14/18 07:30 Eos % (Auto) 3.7 % (1.5-5.0) 08/14/18 07:30 Baso % (Auto) 0.4 % (0.0-3.0) 08/14/18 07:30 Lymph # (Auto) 3.3 (1.2-3.4) 08/14/18 07:30 [place] # (Auto) 1.0 (0.1-0.6) H 08/14/18 07:30 Eos # (Auto) 0.5 (0.0-0.7) 08/14/18 07:30 Baso # (Auto) 0.05 K/mm3 (0.0-2.0) 08/14/18 07:30 Absolute Neuts (auto) 7.70 (1.4-6.5) H 08/14/18 07:30 PT 12.3 SECONDS (9.4-12.5) 08/11/18 16:10 INR 1.11 08/11/18 16:10 APTT 34.8 Seconds (26.9-38.3) 08/11/18 16:10 pCO2 38 mm/Hg (35-45) 08/11/18 16:15 pO2 81 mm/Hg (30-55) H 08/12/18 00:30 HCO3 27.0 mmol/L (21-28) 08/11/18 16:15 ABG pH 7.46 (7.35-7.45) H 08/11/18 16:15 ABG Total CO2 28.2 mmol.L (22-28) H 08/11/18 16:15 ABG O2 Saturation 94.5 % (95-98) L 08/11/18 16:15 ABG Base Excess 3.1 mmol/L (-2.0-3.0) H 08/11/18 16:15 ABG Potassium 4.9 mmol/L (3.6-5.2) 08/11/18 16:15 VBG pH 7.39 (7.32-7.43) 08/12/18 00:30 VBG pCO2 45.0 (40-60) 08/12/18 00:30 VBG HCO3 27.2 mmol/l (21-28) 08/12/18 00:30 VBG Total CO2 28.6 mmol.L (22-28) H 08/12/18 00:30 VBG O2 Sat (Calc) 97.8 % (40-65) H 08/12/18 00:30 VBG Base Excess 1.7 mmol/L (0.0-2.0) 08/12/18 00:30 VBG Potassium 5.9 mmol/L (3.6-5.2) H 08/12/18 00:30 Sodium 130.0 mmol/L (132-148) L 08/12/18 00:30 Chloride 94.0 mmol/L (98-107) L 08/12/18 00:30 Glucose 144 mg/dl (75-110) H 08/12/18 00:30 Lactate 2.3 mmol/L (0.7-2.1) H 08/12/18 00:30 FiO2 21.0 % 08/12/18 00:30 Crit Value Called To Deanna hill rn 2rno 08/12/18 00:30 Crit Value Called By Richelle 08/12/18 00:30 Blood Gas Notified Time 137 08/12/18 00:30 Sodium 138 mmol/L (132-148) 08/16/18 06:20 Potassium 4.7 mmol/L (3.6-5.0) 08/16/18 06:20 Chloride 98 mmol/L (98-107) 08/16/18 06:20 Carbon Dioxide 26 mmol/L (21-33) 08/16/18 06:20 Anion Gap 18 (10-20) 08/16/18 06:20 BUN 44 mg/dL (7-21) H 08/16/18 06:20 Creatinine 7.7 mg/dl (0.8-1.5) H* D 08/16/18 06:20 Est GFR ( Amer) 9 08/16/18 06:20 Est GFR (Non-Af Amer) 7 08/16/18 06:20 POC Glucose (mg/dL) 132 mg/dL (65-110) H 08/16/18 11:47 Random Glucose 93 mg/dL (70-110) 08/16/18 06:20 Hemoglobin A1c 5.6 % (4.2-6.5) 08/11/18 16:10 Calcium 10.4 mg/dL (8.4-10.5) 08/16/18 06:20 Phosphorus 4.9 mg/dL (2.5-4.5) H 08/15/18 10:00 Magnesium 2.4 mg/dL (1.7-2.2) H 08/14/18 07:30 Total Bilirubin 0.4 mg/dL (0.2-1.3) 08/16/18 06:20 AST 47 U/L (17-59) 08/16/18 06:20 ALT 17 U/L (7-56) 08/16/18 06:20 Alkaline Phosphatase 59 U/L (38-126) 08/16/18 06:20 Ammonia 23 umol/L (9-33) 08/11/18 21:27 Total Creatine Kinase 48 U/L (35-230) 08/11/18 16:10 Troponin I 0.07 ng/mL D 08/12/18 05:45 Total Protein 8.1 g/dL (5.8-8.3) 08/16/18 06:20 Albumin 4.6 g/dL (3.0-4.8) 08/16/18 06:20 Globulin 3.5 gm/dL 08/16/18 06:20 Albumin/Globulin Ratio 1.3 (1.1-1.8) 08/16/18 06:20 Triglycerides 285 mg/dL (35-160) H 08/11/18 16:10 Cholesterol 183 mg/dL (130-200) 08/11/18 16:10 LDL Cholesterol Direct 80 mg/dL (0-129) 08/11/18 16:10 HDL Cholesterol 37 mg/dL (29-60) 08/11/18 16:10 Procalcitonin 1.58 NG/ML (0.19-0.49) H 08/11/18 21:27 Arterial Blood Potassium 4.9 mmol/L (3.6-5.2) 08/11/18 16:15 Venous Blood Potassium 5.9 mmol/L (3.6-5.2) H 08/12/18 00:30 Urine Color Yellow (YELLOW) 08/11/18 16:15 Urine Appearance Slight-cloudy (CLEAR) 08/11/18 16:15 Urine pH 7.5 (4.7-8.0) 08/11/18 16:15 Ur Specific [place] 1.020 (1.005-1.035) 08/11/18 16:15 Urine Protein 100 mg/dL (<30 mg/dL) H 08/11/18 16:15 Urine Glucose (UA) 100 mg/dL (NEGATIVE) H 08/11/18 16:15 Urine Ketones Negative mg/dL (NEGATIVE) 08/11/18 16:15 Urine Blood Moderate (NEGATIVE) H 08/11/18 16:15 Urine Nitrate Negative (NEGATIVE) 08/11/18 16:15 Urine Bilirubin Negative (NEGATIVE) 08/11/18 16:15 Urine Urobilinogen 0.2 E.U./dL (<1 E.U./dL) 08/11/18 16:15 Ur Leukocyte Esterase Moderate [place]/uL (NEGATIVE) H 08/11/18 16:15 Urine RBC 20 - 25 /hpf (0-2) H 08/11/18 16:15 Urine WBC 10 - 15 /hpf (0-6) H 08/11/18 16:15 Ur Epithelial Cells Many /hpf (0-5) H 08/11/18 16:15 Amorphous Sediment Small /hpf (NONE) 08/11/18 16:15 Vancomycin Trough 9.9 ug/mL (5.0-10.0) 08/16/18 12:50 Cycl Citrul Peptide IgG <16 Units 08/13/18 10:20 Influenza Typ A,B (EIA) Negative for flu a/b (NEGATIVE) 08/11/18 18:35 Mycoplasma pneumon IgG >5.00 (<=0.90) H 08/11/18 21:27 Mycoplasma pneumon IgM 204 U/mL (<770) 08/11/18 21:27 Blood Type O POSITIVE 08/11/18 16:35 Blood Type Confirm O POSITIVE 08/11/18 17:06 Antibody Screen Negative 08/11/18 16:35 BBK History Checked No verified bt 08/11/18 16:35 - Hospital Course Hospital Course: Kvng Johnson, PGY1 Discharge Summary for Dr. Reyes Patient is a 67 y/o M with PMHx Anemia, HTN, ESRD on HD (), CAD (s/p stent placement 2007), TIA (1985), DM who presented to the ED for weakness and AMS after HD treatment. Dialysis center called EMS. In the ED, patient met SIRS criteria: febrile (Temp 103.5), tachycardia (HR 114), and leukocytosis (wbc 21). Lactate was elevated as well. UA was suspicious for UTI however sample was contaminated. He was AAOx1 (baseline AAOx3). Patient also had chronic R-lower extremity ulcers that was considered to be a possible source of infection. As a result, patient admitted for toxic metabolic encephalopathy due to sepsis. ICU also evaluated the patient however patient was not in septic shock and did not meet criteria for admission to the unit. Given these findings, ID and podiatry was placed on board. Due to AMS, neuro was on board as well to r/o stroke however workup for stroke was negative. After obtaining cultures, patient found to have bacteremia with blood cultures growing beta hemolytic strep Group B. Wound cultures were also positive for MRSA. Patient was placed on merrem for antibiotic coverage. Patient's mental status improved significantly during hospital course and he said he felt much better. Fever and leukocytosis resolved. During hospital course, patient had hyperkalemia and worsening renal function given his history of ESRD (MWF). Nephro was also consulted. As a result, he was started on dialysis as inpatient (he already had a catheter and recent AV fistula in place) and his potassium and renal function improved. As per ID recs, patient also received vanco with HD sessions. Upon reviewing all labs, vitals, and imaging patient is hemodynamically stable for discharge to home. He will follow up with his PMD, water fitness instructor, and podiatry. He will resume his regular HD schedule. Patient also given antibiotics (zyvox) upon discharge. Patient has improved significantly during hospital course and is safe to be discharged home. Discharge Exam - Head Exam Head Exam: ATRAUMATIC, NORMAL INSPECTION, NORMOCEPHALIC - Eye Exam Eye Exam: EOMI, Normal appearance - ENT Exam ENT Exam: Mucous Membranes Moist - Respiratory Exam Respiratory Exam: Clear to PA & Lateral. absent: Accessory Muscle Use, Rales, Rhonchi, Wheezes - Cardiovascular Exam Cardiovascular Exam: RRR, +S1, +S2 - GI/Abdominal Exam GI & Abdominal Exam: Normal Bowel Sounds, Soft. absent: Firm, Guarding, Rigid, Tenderness - Extremities Exam Extremities exam: normal capillary refill, pedal pulses present Additional comments: Right lower extremity dressing is in place for wound ulcers. Chronic left lower extremity erythema. No pitting edema of the lower ext. - Back Exam Back exam: NORMAL INSPECTION - Neurological Exam Neurological exam: Alert, CN II-XII Intact, Normal Gait, Oriented x3, Reflexes Normal - Psychiatric Exam Psychiatric exam: Normal Affect, Normal Mood - Skin Skin Exam: Dry, Intact, Warm Discharge Plan - Discharge Medications Prescriptions: Aspirin [Ecotrin] 81 mg PO DAILY #30 tabec Clotrimazole/Betamethasone [Lotrisone] 1 gm TOP BID #1 tube Linezolid [Zyvox] 600 mg PO Q12 #28 tab Sevelamer [Renagel] 1,600 mg PO TID #42 tab - Follow Up Plan Condition: GOOD Disposition: HOME/ ROUTINE Instructions: Sepsis (DC) Additional Instructions: Please follow up with your Primary Care Doctor (Dr. Jaramillo) within 3-5 days of discharge. You will need weekly blood work while you are taking the antibiotics. Please resume your hemodialysis schedule as usual (Saturday, Saturday, Saturday). Please complete zyvox antibiotic course for 14 days Please follow up with your organic chemistry teacher Dr. Vu within one week Please follow up with you water fitness instructor within one week. Please return to the nearest Emergency Department if your symptoms reoccur (weakness, change in mental status) or you have any new symptoms. Referrals: Marguerite Vu DPM [Staff Provider] - Reanna Jaramillo MD [Primary Care Provider] - Lobito Garcia MD [Staff Provider] -
--- NOTE | 2018-08-16 19:11 | CP.PCM.PN ---
Subjective - Date & Time of Evaluation Date of Evaluation: 08/16/18 Time of Evaluation: 14:00 - Subjective Subjective: Infectious Disease Follow Up: August 16, 2018 67 yo male well known to me from multiple previous hospitalizations at [facility] in the past year. PMHx includes Anemia, HTN, ESRD on HD (MW), CAD (s/p s tent placement 2007), TIA (1985), DM. The patient presented to the ED for weakness and AMS after HD treatment. Dialysis center called EMS. In ER he was found to be febrile to 103.5 F. He was AAO x 1. Normally the patient is mostly AAO x 3 but has had periods of confusion in my experience before (This was during the time the patient was on Peritoneal Dialysis). A similar episodes occurred last year where he was admitted to [facility] and this was also when he was converted from PD to HD. Patient is currently awake and is able to remember me. is also at bedside. Sick contacts of 4 year old grandchildren with colds recently. Fevers up to 103.5 F. Given my previous experiences with this patient on prior hospitalizations, I would start antibiotic coverage aggressively. Afebrile so far today. The patient appears more awake and alert. Urinalysis appears to indicate that UTI is the most likely culprit. Blood cultures showing growth of gram positive cocci in pairs. Currently on Meropenem and Vancomycin doses after HD sessions. Objective - Vital Signs/Intake and Output Vital Signs (last 24 hours): Temp Pulse Resp BP Pulse Ox 97.8 F 84 18 117/70 97 08/16/18 06:00 08/16/18 06:00 08/16/18 06:00 08/16/18 06:00 08/16/18 06:00 - Labs Labs: 08/16/18 06:20 08/16/18 06:20 PT 12.3 SECONDS (9.4-12.5) 08/11/18 16:10 INR 1.11 08/11/18 16:10 APTT 34.8 Seconds (26.9-38.3) 08/11/18 16:10 - Constitutional Appears: Non-toxic, No Acute Distress, Chronically Ill - Head Exam Head Exam: ATRAUMATIC, NORMOCEPHALIC - Eye Exam Eye Exam: EOMI, PERRL Pupil Exam: NORMAL ACCOMODATION, PERRL - ENT Exam ENT Exam: Mucous Membranes Moist, Normal External Ear Exam, TM's Normal Bilaterally - Neck Exam Neck Exam: Full ROM, Normal Inspection - Respiratory Exam Respiratory Exam: Clear to Ausculation Bilateral, Rales, NORMAL BREATHING PATTERN. absent: Rhonchi, Wheezes - Cardiovascular Exam Cardiovascular Exam: REGULAR RHYTHM, RRR, +S1, +S2 Additional comments: healed scar from CABG. Right chest wall Permacath. - GI/Abdominal Exam GI & Abdominal Exam: Distended, Soft, Normal Bowel Sounds. absent: Tenderness - Extremities Exam Extremities Exam: Full ROM, Normal Inspection Additional comments: right leg ulcerations currently wrapped in bandages, chronic venous stasis on both lower extremities. - Neurological Exam Neurological Exam: Alert, Awake, CN II-XII Intact, Oriented x3 - Psychiatric Exam Psychiatric exam: Normal Affect, Normal Mood - Skin Additional comments: As above Assessment and Plan - Assessment and Plan (Free Text) Assessment: 67 yo male well known to me on previous hospitalization to [facility]. The patient with generalized weakness, fevers up to 103.5 F, and leukocytosis up to 21. Lactic acid of 2.8. Procalcitonin pending. Patient is a relatively recent convert to HD within the past year. 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 Would obtain cultures of the blood, urine (if present), and of the right leg ulcerations. Would start aggressively on antibiotic coverage with Meropenem instead of Zosyn and give Vancomycin after HD sessions. Monitor glucose levels. Given dose of aminoglycoside at time of admission. Head CT showed no acute changes Chest X-ray showing no acute cardiopulmonary changes. Extremity ultrasound showed no DVT on the left leg but right leg was a limited study but no visualized DVT. Abd/Pel CT pending. Given urinalysis, UTI appears to be the most likely culprit. Awaiting urine cultures. Leg wound culture with MRSA. Blood cultures showing growth of gram positive cocci in pairs identified as Group B Strep. Completed Meropenem. IV Vancomycin after HD sessions. If IV Vancomycin is not available then use of Zyvox 600 mg PO BID for 14 days. Thank you for allowing me to participate in the care of this patient, we will follow with you.
== END 2018-08-16 18:10 | disposition home health service (06) | DRG 871 ==
LOC: ED 15:35 → ERH 17:36 → 2RNO 08-12 00:23 → 5RSO 08-13 14:14 → 3RNO 08-14 17:29
PROVIDERS: ADMIT Hospitalist; ATTEND Hospitalist
PROC: 5A1D70Z Performance of Urinary Filtration, Intermittent, Less than 6 Hours Per Day (ICD-10-PCS; principal; 2018-08-13)
PROC: 5A1D70Z Performance of Urinary Filtration, Intermittent, Less than 6 Hours Per Day (ICD-10-PCS; 2018-08-15)
DX: A40.1 Sepsis due to streptococcus, group B (principal); N18.6 End stage renal disease; G92 Toxic encephalopathy; I12.0 Hypertensive chronic kidney disease with stage 5 chronic kidney disease or end stage renal disease; L97.919 Non-pressure chronic ulcer of unspecified part of right lower leg with unspecified severity; N25.81 Secondary hyperparathyroidism of renal origin; N39.0 Urinary tract infection, site not specified; Q60.3 Renal hypoplasia, unilateral; L03.115 Cellulitis of right lower limb; L03.116 Cellulitis of left lower limb; R41.82 Altered mental status, unspecified; I25.10 Atherosclerotic heart disease of native coronary artery without angina pectoris; E11.22 Type 2 diabetes mellitus with diabetic chronic kidney disease; Z99.2 Dependence on renal dialysis; Z86.73 Personal history of transient ischemic attack (TIA), and cerebral infarction without residual deficits; Z87.891 Personal history of nicotine dependence; E11.51 Type 2 diabetes mellitus with diabetic peripheral angiopathy without gangrene; E87.5 Hyperkalemia; I27.20 Pulmonary hypertension, unspecified; E66.9 Obesity, unspecified; Z68.33 Body mass index [BMI] 33.0-33.9, adult; E78.00 Pure hypercholesterolemia, unspecified; E78.5 Hyperlipidemia, unspecified; E83.39 Other disorders of phosphorus metabolism; G47.30 Sleep apnea, unspecified; I07.1 Rheumatic tricuspid insufficiency; M10.9 Gout, unspecified; N40.0 Benign prostatic hyperplasia without lower urinary tract symptoms; Z95.5 Presence of coronary angioplasty implant and graft; Z95.1 Presence of aortocoronary bypass graft; Z83.3 Family history of diabetes mellitus; Z80.0 Family history of malignant neoplasm of digestive organs; B95.62 Methicillin resistant Staphylococcus aureus infection as the cause of diseases classified elsewhere

== ENCOUNTER 2018-09-02 09:44 | Outpatient (CLI) | payer MEDICARE | END 2018-09-02 09:45 | disposition home or self-care (01) | LOC: RAD 09:44 ==

== ENCOUNTER 2018-09-22 06:45 | Day surgery (SDC) | payer MEDICARE ==
[2018-09-15 16:36] VITALS: BMI 34.0
[2018-09-22] MEDS ORDERED: Etomidate 20 mg/10ml Inj IV ONE (08:14)
[2018-09-22] MEDS ORDERED: Propofol 10 mg/ml Inj (20 ML) ONE ×2 (08:14→08:44)
[2018-09-22] MEDS ORDERED: Sodium Chloride 0.9% 1,000 ML IV SCH (09:15)
[2018-09-22 10:16] VITALS: BP 150/83; PULSE 71; RESP 20; TEMP 98; O2SAT 97
== END 2018-09-22 11:04 | disposition home or self-care (01) ==
LOC: ENDO 06:45
PROVIDERS: ATTEND Internal Medicine Gastroenterology
DX: Z12.11 Encounter for screening for malignant neoplasm of colon (principal); D12.2 Benign neoplasm of ascending colon; K57.30 Diverticulosis of large intestine without perforation or abscess without bleeding; K64.8 Other hemorrhoids
CPT/HCPCS: 45384; 88305; J2704; J3010; J7030

== ENCOUNTER 2018-09-27 10:17 | Outpatient (CLI) | payer MEDICARE | END 2018-09-27 10:18 | disposition home or self-care (01) | LOC: LAB 10:17 ==

== ENCOUNTER 2018-11-06 13:09 | Outpatient (CLI) | payer MEDICARE | END 2018-11-06 13:10 | disposition home or self-care (01) | LOC: RAD 13:09 ==

== ENCOUNTER 2018-11-18 11:34 | Outpatient (CLI) | payer MEDICARE | END 2018-11-18 11:35 | disposition home or self-care (01) | LOC: LAB 11:34 ==